=== PATIENT | male | born 1965 | race American Indian/Alaskan Native ===

== ENCOUNTER 2017-11-17 04:58 | Inpatient (IN) | payer SELFPAY ==
[2017-11-17 06:09] LABS: Basophils % (Auto) 0.4 % (0.0-1.8); Eosinophils % (Auto) 0.5 % (0.0-4.3); Hematocrit 40.4 % (35.5-45.6); Hemoglobin 13.1 gm/dl (11.8-15.2); Lymphocytes # (Auto) 0.7 K/mm3 (1.2-5.4); Lymphocytes % (Auto) 8.1 % (13.4-35.0); Mean Corpuscular HGB Conc 33 % (32-34); Mean Corpuscular Volume 77 fl (84-94); Monocytes # (Auto) 0.4 K/mm3 (0.0-0.8); Monocytes % (Auto) 4.8 % (0.0-7.3); Platelet Count 130 K/mm3 (140-440); Red Blood Count 5.25 M/mm3 (3.65-5.03); Red Cell Distribution Width 15.9 % (13.2-15.2)
[2017-11-17 06:11] LABS: Mean Corpuscular Hemoglobin 25 pg (28-32)
[2017-11-17 06:23] LABS: BUN/Creatinine Ratio 14; Blood Urea Nitrogen 27 mg/dL (9-20); Calcium 8.5 mg/dL (8.4-10.2); Hemolysis Index 19
[2017-11-17] MEDS ORDERED: APRESOLINE IV ONE (07:04)
[2017-11-17] MEDS ORDERED: CATAPRES PO ONE (08:37)
--- NOTE | 2017-11-17 08:42 | Emergency Department Report ---
ED Chest Pain HPI - General Chief Complaint: Chest Pain Stated Complaint: CHEST PAIN Time Seen by Provider: 11/17/17 06:26 Source: patient, EMS Mode of arrival: Stretcher Limitations: No Limitations - History of Present Illness Initial Comments: Last night at 10 PM, patient developed substernal chest pain that was nonradiating, intermittent, and pleuritic. Associated with shortness of breath that worsened when he laid flat. Patient is concerned that it was his CHF. Feels different from his heart attack in June 2017. Patient has been noncompliant with his blood pressure medicines. Severity scale (0 -10): 10 - Related Data Home Medications Medication Instructions Recorded Confirmed Last Taken Ascorbic Acid [Vitamin C] 250 mg PO DAILY 11/17/17 11/17/17 Unknown AtorvaSTATin [Lipitor] 20 mg PO QHS 11/17/17 11/17/17 Unknown Carvedilol [Coreg] 25 mg PO BID 11/17/17 11/17/17 Unknown Hydralazine HCl 50 mg PO QID 11/17/17 11/17/17 Unknown Nitroglycerin 0.4 mg SL PRN PRN 11/17/17 11/17/17 Unknown amLODIPine [Norvasc] 10 mg PO DAILY 11/17/17 11/17/17 Unknown cloNIDine [Catapres] 0.1 mg PO TID 11/17/17 11/17/17 Unknown Allergies Allergy/AdvReac Type Severity Reaction Status Date / Time No Known Allergies Allergy Verified 11/17/17 05:09 Heart Score - HEART Score History: Slightly suspicious EKG: Normal Age: 45-65 Risk factors: > 3 risk factors or hx of atherosclerotic disease Troponin: < normal limit HEART Score: 3 ED Review of Systems ROS: Stated complaint: CHEST PAIN Other details as noted in HPI Comment: All other systems reviewed and negative Cardiovascular: chest pain, dyspnea on exertion, orthopnea, paroxysmal nocturnal dyspnea ED Past Medical Hx - Past Medical History Previous Medical History?: Yes Hx Hypertension: Yes Hx Congestive Heart Failure: Yes Hx Diabetes: Yes - Surgical History Past Surgical History?: Yes Additional Surgical History: Broke femur in 1982 - Social History Smoking Status: Current Every Day Smoker Substance Use Type: None - Medications Home Medications: Home Medications Medication Instructions Recorded Confirmed Last Taken Type Ascorbic Acid [Vitamin C] 250 mg PO DAILY 11/17/17 11/17/17 Unknown History AtorvaSTATin [Lipitor] 20 mg PO QHS 11/17/17 11/17/17 Unknown History Carvedilol [Coreg] 25 mg PO BID 11/17/17 11/17/17 Unknown History Hydralazine HCl 50 mg PO QID 11/17/17 11/17/17 Unknown History Nitroglycerin 0.4 mg SL PRN PRN 11/17/17 11/17/17 Unknown History amLODIPine [Norvasc] 10 mg PO DAILY 11/17/17 11/17/17 Unknown History cloNIDine [Catapres] 0.1 mg PO TID 11/17/17 11/17/17 Unknown History ED Physical Exam - General Limitations: No Limitations General appearance: alert, in no apparent distress - Head Head exam: Present: atraumatic, normocephalic - Eye Eye exam: Present: normal appearance - ENT ENT exam: Present: mucous membranes moist - Neck Neck exam: Present: normal inspection - Respiratory Respiratory exam: Present: normal lung sounds bilaterally. Absent: respiratory distress - Cardiovascular Cardiovascular Exam: Present: regular rate, normal rhythm. Absent: systolic murmur, diastolic murmur, rubs, gallop - GI/Abdominal GI/Abdominal exam: Present: soft, normal bowel sounds - Rectal Rectal exam: Present: deferred - Extremities Exam Extremities exam: Present: normal inspection - Back Exam Back exam: Present: normal inspection - Neurological Exam Neurological exam: Present: alert, oriented X3 - Psychiatric Psychiatric exam: Present: normal affect, normal mood - Skin Skin exam: Present: warm, dry, intact, normal color. Absent: rash ED Course Vital Signs 11/17/17 11/17/17 11/17/17 05:09 05:10 05:15 Temperature 97.6 F Pulse Rate 90 92 H 85 Respiratory 23 29 H Rate Blood Pressure 204/132 Blood Pressure 204/132 [Left] O2 Sat by Pulse 96 95 Oximetry 11/17/17 11/17/17 11/17/17 05:30 05:44 06:00 Temperature Pulse Rate 86 88 Respiratory 20 22 26 H Rate Blood Pressure 200/136 200/134 Blood Pressure [Left] O2 Sat by Pulse 95 97 96 Oximetry 11/17/17 11/17/17 06:30 07:00 Temperature Pulse Rate 78 88 Respiratory 24 22 Rate Blood Pressure 192/128 186/123 Blood Pressure [Left] O2 Sat by Pulse 93 96 Oximetry ED Medical Decision Making - Lab Data Result diagrams: 11/17/17 05:58 11/17/17 05:58 - EKG Data -: EKG Interpreted by Me EKG shows normal: sinus rhythm, axis, intervals, QRS complexes, ST-T waves Rate: normal - Radiology Data Radiology results: image reviewed - Medical Decision Making 51-year-old male with past medical history of CAD, NM, hypertension, dyslipidemia, CHF that presents with chest pain and shortness of breath. Patient well-appearing her position. Vital signs skin for hypertension. Patient has not taken his clonidine in over 4 days. EKG is nonischemic. Lab work significant for creatinine 1.9. No prior for comparison. Troponin 1 is negative. Chest x-ray shows concerns for bilateral interstitial edema. Patient is endorsing symptoms of paroxysmal nocturnal dyspnea. It does not appear that he is on any diuretics. Patient was given hydralazine/clonidine for his blood pressure. His BNP is 4000. Given history of PND symptoms with his chest x-ray findings, I gave him 20 mg of IV Lasix. The patient will be admitted for further management. Low suspicion for PE. - Differential Diagnosis CHF, ACS, pneumothorax, pneumonia, hypertensive urgency Critical Care Time: Yes Critical care time in (mins) excluding proc time.: 31 Critical care attestation.: If time is entered above; I have spent that time in minutes in the direct care of this critically ill patient, excluding procedure time. ED Disposition Clinical Impression: CHF exacerbation, KRYS (acute kidney injury) Disposition: 09 OP ADMIT IP TO THIS HOSP Is pt being admited?: Yes Condition: Stable Referrals: PRIMARY CARE, [Primary Care Provider] - 3-5 Days
[2017-11-17] MEDS ORDERED: LASIX IV ONE (08:43)
--- NOTE | 2017-11-17 09:48 | XRay Report ---
ROUTINE CHEST, TWO VIEWS: HISTORY: chest pain. No comparison. Mild central pulmonary venous congestion is suspected. The lungs are clear otherwise. No pleural effusion or pneumothorax. There appear to be emphysematous changes in right apical region. Heart size is within normal limits. The bony structures are grossly intact. IMPRESSION: Pulmonary venous congestion. Emphysematous changes.
[2017-11-17] MEDS ORDERED: PERCOCET 5/325 PO PRN (09:49)
[2017-11-17] MEDS ORDERED: MORPHINE IV PRN (09:49)
[2017-11-17] MEDS ORDERED: SODIUM CHLORIDE FLUSH SYRINGE 10 ML IV PRN (09:49)
[2017-11-17] MEDS ORDERED: TYLENOL PO PRN (09:49)
[2017-11-17] MEDS ORDERED: ZOFRAN IV PRN (09:49)
--- NOTE | 2017-11-17 09:49 | History and Physical Report ---
History of Present Illness Date of examination: 11/17/17 Date of admission: 11/17/17 Chief complaint: Cc L side chest pain since last night 10 pm History of present illness: History of Present Illness: Last night at 10 PM, patient developed substernal chest pain that was nonradiating, intermittent, and pleuritic. Associated with shortness of breath that worsened when he laid flat. Patient is concerned that it was his CHF. Feels different from his heart attack in June 2017. Patient has been noncompliant with his blood pressure medicines. Severity scale (0 -10): 10 No exacerbating or relieving factors Past Medical History Previous Medical History?: Yes Hx Hypertension: Yes Hx Congestive Heart Failure: Yes Hx Diabetes: Yes Surgical History Past Surgical History?: Yes Additional Surgical History: Broke femur in 1982 Social History Smoking Status: Current Every Day Smoker Substance Use Type: None Medications Home Medications: Home Medications Medication Instructions Recorded Confirmed Last Taken Type Ascorbic Acid [Vitamin C] 250 mg PO DAILY 11/17/17 11/17/17 Unknown History AtorvaSTATin [Lipitor] 20 mg PO QHS 11/17/17 11/17/17 Unknown History Carvedilol [Coreg] 25 mg PO BID 11/17/17 11/17/17 Unknown History Hydralazine HCl 50 mg PO QID 11/17/17 11/17/17 Unknown History Nitroglycerin 0.4 mg SL PRN PRN 11/17/17 11/17/17 Unknown History amLODIPine [Norvasc] 10 mg PO DAILY 11/17/17 11/17/17 Unknown History cloNIDine [Catapres] 0.1 mg PO TID 11/17/17 11/17/17 Unknown History Review of Systems ROS: Stated complaint: CHEST PAIN Other details as noted in HPI Comment: All other systems reviewed and negative Cardiovascular: chest pain, dyspnea on exertion, orthopnea, paroxysmal nocturnal dyspnea Medications and Allergies Allergies Allergy/AdvReac Type Severity Reaction Status Date / Time No Known Allergies Allergy Verified 11/17/17 05:09 Home Medications Medication Instructions Recorded Confirmed Last Taken Type Ascorbic Acid [Vitamin C] 250 mg PO DAILY 11/17/17 11/17/17 Unknown History AtorvaSTATin [Lipitor] 20 mg PO QHS 11/17/17 11/17/17 Unknown History Carvedilol [Coreg] 25 mg PO BID 11/17/17 11/17/17 Unknown History Hydralazine HCl 50 mg PO QID 11/17/17 11/17/17 Unknown History Nitroglycerin 0.4 mg SL PRN PRN 11/17/17 11/17/17 Unknown History amLODIPine [Norvasc] 10 mg PO DAILY 11/17/17 11/17/17 Unknown History cloNIDine [Catapres] 0.1 mg PO TID 11/17/17 11/17/17 Unknown History Review of Systems All systems: negative Exam - Constitutional Vitals: Temp Pulse Resp BP Pulse Ox 97.6 F 89 30 H 191/127 98 11/17/17 05:09 11/17/17 07:31 11/17/17 07:31 11/17/17 09:00 11/17/17 09:00 General appearance: Present: no acute distress, well-nourished - EENT Eyes: Present: PERRL ENT: hearing intact, clear oral mucosa - Neck Neck: Present: supple, normal ROM - Respiratory Respiratory effort: normal Respiratory: bilateral: CTA - Cardiovascular Heart Sounds: Present: S1 & S2. Absent: rub, click - Extremities Extremities: pulses symmetrical, No edema Peripheral Pulses: within normal limits - Abdominal General gastrointestinal: Present: soft, non-tender, non-distended, normal bowel sounds Male genitourinary: Present: normal - Integumentary Integumentary: Present: clear, warm, dry - Musculoskeletal Musculoskeletal: gait normal, strength equal bilaterally - Psychiatric Psychiatric: appropriate mood/affect, intact judgment & insight - Neurologic Neurologic: CNII-XII intact, moves all extremities Results - Labs CBC & Chem 7: 11/17/17 05:58 11/17/17 05:58 Labs: Laboratory Last Values WBC 9.1 K/mm3 (4.5-11.0) 11/17/17 05:58 RBC 5.25 M/mm3 (3.65-5.03) H 11/17/17 05:58 Hgb 13.1 gm/dl (11.8-15.2) 11/17/17 05:58 Hct 40.4 % (35.5-45.6) 11/17/17 05:58 MCV 77 fl (84-94) L 11/17/17 05:58 MCH 25 pg (28-32) L 11/17/17 05:58 MCHC 33 % (32-34) 11/17/17 05:58 RDW 15.9 % (13.2-15.2) H 11/17/17 05:58 Plt Count 130 K/mm3 (140-440) L 11/17/17 05:58 Lymph % (Auto) 8.1 % (13.4-35.0) L 11/17/17 05:58 [place] % (Auto) 4.8 % (0.0-7.3) 11/17/17 05:58 Eos % (Auto) 0.5 % (0.0-4.3) 11/17/17 05:58 Baso % (Auto) 0.4 % (0.0-1.8) 11/17/17 05:58 Lymph # 0.7 K/mm3 (1.2-5.4) L 11/17/17 05:58 [place] # 0.4 K/mm3 (0.0-0.8) 11/17/17 05:58 Eos # 0.0 K/mm3 (0.0-0.4) 11/17/17 05:58 Baso # 0.0 K/mm3 (0.0-0.1) 11/17/17 05:58 Seg Neutrophils % 86.2 % (40.0-70.0) H 11/17/17 05:58 Seg Neutrophils # 7.9 K/mm3 (1.8-7.7) H 11/17/17 05:58 Sodium 140 mmol/L (137-145) 11/17/17 05:58 Potassium 5.0 mmol/L (3.6-5.0) 11/17/17 05:58 Chloride 103.7 mmol/L (98-107) 11/17/17 05:58 Carbon Dioxide 26 mmol/L (22-30) 11/17/17 05:58 Anion Gap 15 mmol/L 11/17/17 05:58 BUN 27 mg/dL (9-20) H 11/17/17 05:58 Creatinine 1.9 mg/dL (0.8-1.5) H 11/17/17 05:58 Estimated GFR 45 ml/min 11/17/17 05:58 BUN/Creatinine Ratio 14 % 11/17/17 05:58 Glucose 105 mg/dL (75-100) H 11/17/17 05:58 Calcium 8.5 mg/dL (8.4-10.2) 11/17/17 05:58 Troponin T < 0.010 ng/mL (0.00-0.029) 11/17/17 08:15 NT-Pro-B Natriuret Pep 3952 pg/mL (0-900) H 11/17/17 05:58 Assessment and Plan Advance Directives: Yes (Full code) VTE prophylaxis?: Chemical Plan of care discussed with patient/family: Yes - Patient Problems (1) Chest pain Current Visit: Yes Status: Acute Qualifiers: Chest pain type: unspecified Qualified Code(s): R07.9 - Chest pain, unspecified Plan to address problem: Chest pain w/u Lexiscan in AM Serial cardiac enmzymes (2) HTN (hypertension) Current Visit: Yes Status: Chronic Qualifiers: Hypertension type: essential hypertension Qualified Code(s): I10 - Essential (primary) hypertension Plan to address problem: Cont antihypertensives (3) HLD (hyperlipidemia) Current Visit: Yes Status: Chronic Qualifiers: Hyperlipidemia type: mixed hyperlipidemia Qualified Code(s): E78.2 - Mixed hyperlipidemia Plan to address problem: Cont statins (4) CHF (congestive heart failure) Current Visit: Yes Status: Chronic Qualifiers: Heart failure chronicity: chronic Plan to address problem: Not on any diuretics Check ECHO (5) KRYS (acute kidney injury) Current Visit: Yes Status: Acute Plan to address problem: Cr 1.9 Will give fluid challenge (6) DVT prophylaxis Current Visit: Yes Status: Acute Plan to address problem: On Heparin
[2017-11-17] MEDS ORDERED: NITROSTAT SL PRN ×2 (09:52→11:30)
[2017-11-17] MEDS ORDERED: NON-FORMULARY (Hydralazine Hcl [Hydralazine Hcl] 50 MG) PO SCH (10:00)
[2017-11-17] MEDS ORDERED: NACL 0.9% 1000 ML 1,000 ML IV SCH (12:00)
[2017-11-17] MEDS ORDERED: LEXISCAN IV ONE ×2 (12:01→12:10)
[2017-11-17] MEDS: APRESOLINE PO SCH ×3 (15:23→21:53)
[2017-11-17] MEDS: CATAPRES PO SCH ×2 (15:24→21:53)
[2017-11-17] MEDS: HEPARIN SUB-Q SCH ×2 (17:12→21:52)
[2017-11-17] MEDS: COREG PO SCH ×2 (17:12→21:56)
[2017-11-17] MEDS: VITAMIN C PO SCH (17:21)
[2017-11-17] MEDS: NORVASC PO SCH (17:21)
[2017-11-17] MEDS: NACL 0.9% 1000 ML 1,000 ML IV SCH (20:08)
[2017-11-17] MEDS: SODIUM CHLORIDE FLUSH SYRINGE 10 ML IV SCH (21:54)
[2017-11-18] MEDS: CATAPRES PO SCH ×3 (08:30→21:59)
[2017-11-18] MEDS: NACL 0.9% 1000 ML 1,000 ML IV SCH (08:30)
[2017-11-18 08:31] LABS: Basophils % (Auto) 0.4 % (0.0-1.8); Eosinophils # (Auto) 0.1 K/mm3 (0.0-0.4); Eosinophils % (Auto) 1.2 % (0.0-4.3); Lymphocytes # (Auto) 1.3 K/mm3 (1.2-5.4); Lymphocytes % (Auto) 18.1 % (13.4-35.0); Mean Corpuscular HGB Conc 31 % (32-34); Mean Corpuscular Volume 79 fl (84-94); Monocytes # (Auto) 0.4 K/mm3 (0.0-0.8); Monocytes % (Auto) 5.7 % (0.0-7.3); Platelet Count 135 K/mm3 (140-440); Red Blood Count 5.43 M/mm3 (3.65-5.03); Red Cell Distribution Width 15.9 % (13.2-15.2)
[2017-11-18 08:42] LABS: Hematocrit 42.6 % (35.5-45.6); Hemoglobin 13.2 gm/dl (11.8-15.2); Mean Corpuscular Hemoglobin 24 pg (28-32)
[2017-11-18 08:49] LABS: Albumin 3.5 g/dL (3.9-5); Calcium 8.8 mg/dL (8.4-10.2)
--- NOTE | 2017-11-18 09:20 | Progress Note ---
Assessment and Plan Assessment and plan: Patient is 51 yo man with a history of tobacco dependency hypertension, CHF, dlp and niddm who pw sob and chest pains. Bp was 191/127 heart 89, rr 30. Patient admitted to noncompliance with antihypertensivess. 2v CXR showed pulmonary venous congestion and emphysematous changes. -Acute on chronic heart failure, no prior EMR here, will check ECHO, was given iv lasix by ER physician but was given IVF challenge by admitting Hospitalist for Cr 1.9 (no prior levels to compare) -Chest pains, ischemic work up was ordered on admission -Elevated Cr, ?ckd 3 vs ARF: get renal u/s to differentiate. -Hypertension urgency due to noncompliance with clonidine: restart antihypertensives -Tobacco dependency with radiographic COPD: educated and peer financial counselor on smoking cessation. -Mild Thrombocytopenia, ?chronic: will follow closely -DVT prophylaxis: scd only, d/c sq heparin due to undifferentiated thrombocytopenia full code stress test ordered, echo pending renal ultrasound History Interval history: Patient was seen and examined. Follow-up on current diagnosis sob which has resolved. Overnight uneventful. Patient denies any chest pain, shortness breath , nausea/vomiting or severe headaches. Imaging, nursing note, chart, labs and old chart reviewed. Discussed with patient. Hospitalist Physical - Physical exam Narrative exam: GEN: WDWN, NAD, Awake, Alert, Orientated HEENT: NCAT, EOMI, PERRL, OP Clear NECK: supple, no adenopathy, no thyromegaly, no JVD CVS/HEART: RRR, normal S1S2, pulses present bilaterally CHEST/LUNGS: CTA B, Symmetrical chest expansion, good air entry bilaterally GI/Abdomen: soft, NTND, good bowel sounds, no guarding or rebound /Bladder: no suprapubic tenderness, no CVA or paraspinal tenderness EXT/Skin: no c/c/e, no obvious rash MSK: FROM x 4 Neuro: CN 2-12 grossly intact, no new focal deficits Psych: calm - Constitutional Vitals: Temp Pulse Resp BP Pulse Ox 97.9 F 87 20 154/107 98 11/18/17 08:00 11/18/17 08:30 11/18/17 08:00 11/18/17 08:30 11/18/17 08:00 General appearance: Present: no acute distress, well-nourished Results - Labs CBC & Chem 7: 11/18/17 07:05 11/18/17 07:05 Labs: Laboratory Last Values WBC 7.3 K/mm3 (4.5-11.0) 11/18/17 07:05 RBC 5.43 M/mm3 (3.65-5.03) H 11/18/17 07:05 Hgb 13.2 gm/dl (11.8-15.2) 11/18/17 07:05 Hct 42.6 % (35.5-45.6) 11/18/17 07:05 MCV 79 fl (84-94) L 11/18/17 07:05 MCH 24 pg (28-32) L 11/18/17 07:05 MCHC 31 % (32-34) L 11/18/17 07:05 RDW 15.9 % (13.2-15.2) H 11/18/17 07:05 Plt Count 135 K/mm3 (140-440) L 11/18/17 07:05 Lymph % (Auto) 18.1 % (13.4-35.0) 11/18/17 07:05 [place] % (Auto) 5.7 % (0.0-7.3) 11/18/17 07:05 Eos % (Auto) 1.2 % (0.0-4.3) 11/18/17 07:05 Baso % (Auto) 0.4 % (0.0-1.8) 11/18/17 07:05 Lymph # 1.3 K/mm3 (1.2-5.4) 11/18/17 07:05 [place] # 0.4 K/mm3 (0.0-0.8) 11/18/17 07:05 Eos # 0.1 K/mm3 (0.0-0.4) 11/18/17 07:05 Baso # 0.0 K/mm3 (0.0-0.1) 11/18/17 07:05 Seg Neutrophils % 74.6 % (40.0-70.0) H 11/18/17 07:05 Seg Neutrophils # 5.5 K/mm3 (1.8-7.7) 11/18/17 07:05 Sodium 141 mmol/L (137-145) 11/18/17 07:05 Potassium 4.8 mmol/L (3.6-5.0) 11/18/17 07:05 Chloride 101.4 mmol/L (98-107) 11/18/17 07:05 Carbon Dioxide 26 mmol/L (22-30) 11/18/17 07:05 Anion Gap 18 mmol/L 11/18/17 07:05 BUN 31 mg/dL (9-20) H 11/18/17 07:05 Creatinine 2.1 mg/dL (0.8-1.5) H 11/18/17 07:05 Estimated GFR 40 ml/min 11/18/17 07:05 BUN/Creatinine Ratio 15 % 11/18/17 07:05 Glucose 90 mg/dL (75-100) 11/18/17 07:05 Calcium 8.8 mg/dL (8.4-10.2) 11/18/17 07:05 Total Bilirubin 0.40 mg/dL (0.1-1.2) 11/18/17 07:05 AST 9 units/L (5-40) 11/18/17 07:05 ALT 93 units/L (7-56) H 11/18/17 07:05 Alkaline Phosphatase 79 units/L (35-129) 11/18/17 07:05 Troponin T < 0.010 ng/mL (0.00-0.029) 11/17/17 20:32 NT-Pro-B Natriuret Pep 3952 pg/mL (0-900) H 11/17/17 05:58 Total Protein 5.8 g/dL (6.3-8.2) L 11/18/17 07:05 Albumin 3.5 g/dL (3.9-5) L 11/18/17 07:05 Albumin/Globulin Ratio 1.5 % 11/18/17 07:05
[2017-11-18] MEDS: VITAMIN C PO SCH (14:25)
[2017-11-18] MEDS: NORVASC PO SCH (14:25)
[2017-11-18] MEDS: APRESOLINE PO SCH ×4 (14:26→21:59)
[2017-11-18] MEDS: SODIUM CHLORIDE FLUSH SYRINGE 10 ML IV SCH ×2 (14:27→21:59)
[2017-11-18] MEDS: COREG PO SCH ×2 (14:27→22:00)
[2017-11-19 06:10] LABS: Hematocrit 38.7 % (35.5-45.6); Hemoglobin 12.7 gm/dl (11.8-15.2); Mean Corpuscular HGB Conc 33 % (32-34); Mean Corpuscular Volume 76 fl (84-94); Platelet Count 130 K/mm3 (140-440); Red Blood Count 5.09 M/mm3 (3.65-5.03); Red Cell Distribution Width 15.6 % (13.2-15.2)
[2017-11-19 06:16] LABS: Mean Corpuscular Hemoglobin 25 pg (28-32)
[2017-11-19 06:34] LABS: Calcium 8.6 mg/dL (8.4-10.2)
--- NOTE | 2017-11-19 06:59 | Ultrasound Report ---
FINAL REPORT EXAM: US RENAL BILAT HISTORY: ARF TECHNIQUE: Routine sonographic evaluation was obtained of the kidneys. FINDINGS: The right kidney is normal size contour and echotexture measuring 10.4 cm by 5.1 cm x 5.5 cm. The cortical thickness is 2.3 cm. There is no evidence of stones or hydronephrosis. The left kidney is atrophic measuring 6.9 cm x 4.4 cm x 4.6 cm. The cortical thickness is 1.5 cm. There is no evidence of hydronephrosis. The bladder was not examined. IMPRESSION: Atrophic left kidney. No evidence of renal stones or hydronephrosis.
[2017-11-19 09:23] VITALS: BP 138/100
--- NOTE | 2017-11-19 10:06 | Consultation ---
History of Present Illness Consult date: 11/19/17 Consult reason: other (abnormal echocardiogram) History of present illness: This is a 51yr old male with a history of hypertension, diabetes, chronic kidney disease and known noncompliance with medications and outpatient follow up. He presents to this hospital with complaints of chest pain, admitted for rule out ACS. Cycled cardiac enzymes were normal. 12 lead ECG is a sinus rhythm with left ventricular hypertrophy. He underwent thallium stress test, ordered by the primary team, that was negative for ischemia. An echocardiogram demonstrates a dilated left atrium, right atrium with moderate mitral regurgitation without evidence of mitral stenosis. Normal left ventricular systolic function, ejection fraction 60-65%. Medications and Allergies Allergies Allergy/AdvReac Type Severity Reaction Status Date / Time No Known Allergies Allergy Verified 11/17/17 05:09 Home Medications Medication Instructions Recorded Confirmed Last Taken Type Ascorbic Acid [Vitamin C] 250 mg PO DAILY 11/17/17 11/17/17 Unknown History AtorvaSTATin [Lipitor] 20 mg PO QHS 11/17/17 11/17/17 Unknown History Carvedilol [Coreg] 25 mg PO BID 11/17/17 11/17/17 Unknown History Hydralazine HCl 50 mg PO QID 11/17/17 11/17/17 Unknown History Nitroglycerin 0.4 mg SL PRN PRN 11/17/17 11/17/17 Unknown History amLODIPine [Norvasc] 10 mg PO DAILY 11/17/17 11/17/17 Unknown History cloNIDine [Catapres] 0.1 mg PO TID 11/17/17 11/17/17 Unknown History Active Meds: Active Medications Acetaminophen (Tylenol) 650 mg PO Q4H PRN PRN Reason: Pain MILD(1-3)/Fever >100.5/LUA Amlodipine Besylate (Norvasc) 10 mg PO DAILY [facility] Last Admin: 11/18/17 14:25 Dose: 10 mg Ascorbic Acid (Vitamin C) 250 mg PO DAILY [facility] Last Admin: 11/18/17 14:25 Dose: 250 mg Atorvastatin Calcium (Lipitor) 20 mg PO QHS [facility] Last Admin: 11/18/17 21:59 Dose: 20 mg Carvedilol (Coreg) 25 mg PO BID [facility] Last Admin: 11/18/17 22:00 Dose: 25 mg Clonidine HCl (Catapres) 0.1 mg PO TID [facility] Last Admin: 11/18/17 21:59 Dose: 0.1 mg Hydralazine HCl (Apresoline) 50 mg PO QID [facility] Last Admin: 11/18/17 21:59 Dose: 50 mg Morphine Sulfate (Morphine) 2 mg IV Q4H PRN PRN Reason: Pain, Moderate (4-6) Nitroglycerin (Nitrostat) 0.4 mg SL .Q5MIN PRN PRN Reason: Chest Pain Ondansetron HCl (Zofran) 4 mg IV Q8H PRN PRN Reason: Nausea And Vomiting Oxycodone/Acetaminophen (Percocet 5/325) 1 tab PO Q6H PRN PRN Reason: Pain, Moderate (4-6) Sodium Chloride (Sodium Chloride Flush Syringe 10 Ml) 10 ml IV BID [facility] Last Admin: 11/18/17 21:59 Dose: 10 ml Physical Examination Vital Signs Temp Pulse Resp BP Pulse Ox 97.6 F 90 23 204/132 96 11/17/17 05:09 11/17/17 05:09 11/17/17 05:09 11/17/17 05:09 11/17/17 05:09 General appearance: no acute distress HEENT: Positive: PERRL Neck: Positive: trachea midline Cardiac: Positive: Reg Rate and Rhythm Lungs: Positive: Decreased Breath Sounds Neuro: Positive: Grossly Intact Extremities: Absent: edema Results 11/19/17 05:09 11/19/17 05:09 CBC 11/19/17 Range/Units 05:09 WBC 5.8 (4.5-11.0) K/mm3 RBC 5.09 H (3.65-5.03) M/mm3 Hgb 12.7 (11.8-15.2) gm/dl Hct 38.7 (35.5-45.6) % Plt Count 130 L (140-440) K/mm3 Comprehensive Metabolic Panel 11/19/17 Range/Units 05:09 Sodium 141 (137-145) mmol/L Potassium 4.4 (3.6-5.0) mmol/L Chloride 103.6 (98-107) mmol/L Carbon Dioxide 24 (22-30) mmol/L BUN 35 H (9-20) mg/dL Creatinine 2.0 H (0.8-1.5) mg/dL Glucose 97 (75-100) mg/dL Calcium 8.6 (8.4-10.2) mg/dL Assessment and Plan Chest pain, atypical normal thallium stress test Hypertension Chronic kidney disease Thrombocytopenia Noncompliance with medical therapy An echocardiogram demonstrates a dilated left atrium, right atrium with moderate mitral regurgitation without evidence of mitral stenosis. Normal left ventricular systolic function, ejection fraction 60-65%. No further cardiac workup indicated. Patient advised compliance with his medications and outpatient follow ups.
[2017-11-19] MEDS: VITAMIN C PO SCH (10:38)
[2017-11-19] MEDS: CATAPRES PO SCH ×2 (10:38→14:22)
[2017-11-19] MEDS: NORVASC PO SCH (10:38)
[2017-11-19] MEDS: COREG PO SCH (10:38)
[2017-11-19] MEDS: APRESOLINE PO SCH ×2 (10:38→14:23)
[2017-11-19] MEDS: SODIUM CHLORIDE FLUSH SYRINGE 10 ML IV SCH (10:39)
--- NOTE | 2017-11-19 14:36 | Discharge Summary ---
Providers - Providers Date of Admission: 11/17/17 09:49 Date of discharge: 11/19/17 Attending physician: CAROL MORSE 11/18/17 15:30 Consult to Physician [CONS] Routine Comment: NOTIFIED LUIS ALFREDO ON FLOOR 11/19/17 0892 Consulting Provider: SRINIVAS MEJIA Physician Instructions: Reason For Exam: moderate MR, CHF Primary care physician: WEB APPLICATION TESTER Hospitalization Condition: Stable Hospital course: Patient is 51 yo man with a history of tobacco dependency hypertension, CHF, dlp and niddm who pw sob and chest pains. Bp was 191/127 heart 89, rr 30. Patient admitted to noncompliance with antihypertensivess. 2v CXR showed pulmonary venous congestion and emphysematous changes. -Acute on chronic diastolic heart failure, no prior EMR here, will check ECHO, was given iv lasix by ER physician but was given IVF challenge by admitting Hospitalist for Cr 1.9 (no prior levels to compare) -Chest pains, ischemic work up was ordered on admission -CKD 3 with atrophic left kidney on renal u/s -Hypertension urgency due to noncompliance with clonidine: restart antihypertensives -Tobacco dependency with radiographic COPD: educated and behavioral school counselors on smoking cessation. -Mild Thrombocytopenia, ?chronic: will follow closely -DVT prophylaxis: scd only, d/c sq heparin due to undifferentiated thrombocytopenia full code He underwent thallium stress test, was negative for ischemia. An echocardiogram demonstrates a dilated left atrium, right atrium with moderate mitral regurgitation without evidence of mitral stenosis. Normal left ventricular systolic function, ejection fraction 60-65%. Disposition: DC-01 TO HOME OR SELFCARE Time spent for discharge: 35 minutes Core Measure Documentation - Palliative Care Palliative Care/ Comfort Measures: Not Applicable - Core Measures Any of the following diagnoses?: heart failure - VTE Discharge Requirements Deep Vein Thrombosis/Pulmonary Embolism Present on Admission: No Has pt received <5 days of overlap therapy or INR<2.0: No Anticoagulant overlap therapy prescribed at discharge: No Contraindication No Overlap Therapy order at DC: Not Indicated - Heart Failure Discharge Requirements RICHELLE/ARB for LVSD if EF <40%: Not Applicable Beta kiana at discharge: Yes Exam - Physical Exam Narrative exam: GEN: WDWN, NAD, Awake, Alert, Orientated HEENT: NCAT, EOMI, PERRL, OP Clear NECK: supple, no adenopathy, no thyromegaly, no JVD CVS/HEART: RRR, normal S1S2, pulses present bilaterally CHEST/LUNGS: CTA B, Symmetrical chest expansion, good air entry bilaterally GI/Abdomen: soft, NTND, good bowel sounds, no guarding or rebound /Bladder: no suprapubic tenderness, no CVA or paraspinal tenderness EXT/Skin: no c/c/e, no obvious rash MSK: FROM x 4 Neuro: CN 2-12 grossly intact, no new focal deficits Psych: calm - Constitutional Vitals: Temp Pulse Resp BP Pulse Ox 98.0 F 69 5 L 138/100 99 11/19/17 08:00 11/19/17 08:28 11/19/17 07:42 11/19/17 07:42 11/19/17 07:42 Plan Activity: other (no strenous activity until cleared by Cardiology) Diet: low salt Additional Instructions: see dr. Olmos for high blood pressure. see dr. Whitman for low platelet count. see Dr. Maier for chronic kidney issues Follow up with: PRIMARY CAREMD [Primary Care Provider] - 3-5 Days SRINIVAS MEJIA MD [Staff Physician] - 7 Days GREGG MAIER MD [Staff Physician] - 7 Days RODRICK WHITMAN MD [Staff Physician] - 7 Days Prescriptions: AtorvaSTATin [Lipitor] 20 mg PO QHS #30 tablet amLODIPine [Norvasc] 10 mg PO DAILY #30 tablet Carvedilol [Coreg] 25 mg PO BID #60 tablet cloNIDine [Catapres] 0.1 mg PO TID #90 tablet hydrALAZINE [Apresoline TAB] 50 mg PO QID #120 tablet
--- NOTE | 2017-11-21 11:46 | Treadmill Report ---
NUCLEAR PERFUSION SCAN REFERRING PHYSICIAN: Dr. Chávez. SUPERVISING PHYSICIAN: Dr. Pickard. PROTOCOL: The patient was brought to the stress lab in a postabsorptive state, given 10 mCi of technetium 99m at rest. The patient underwent rest imaging. The patient underwent Lexiscan stress test. At peak stress, the patient was given 26 mCi of technetium 99m. Shortly thereafter, the patient underwent stress imaging. Raw imaging reveals mild motion artifact. SPECT imaging examined carefully in horizontal long axis, vertical long axis, short axis views. Technically difficult study, but grossly no evidence of a significant fixed or reversible perfusion defects suggestive of prior infarction or ischemia. Gated wall motion reveals a calculated ejection fraction of 40%. However, due to the technically difficult nature of study, this may not accurately reflect LV function. No TID. CONCLUSIONS: 1. Technically difficult study, but grossly no evidence of significant degree of ischemia or prior infarction. 2. Calculated ejection fraction of 40%, but this may not be entirely accurate given technically difficult study. Would correlate with echocardiography if warranted. 3. Stress EKG portion of this test is reported separately. JOB# [id number] SBJasmyn/NINA
== END 2017-11-19 17:58 | disposition home or self-care (01) | DRG 682 ==
LOC: ED 04:58 → 4A 09:49
PROVIDERS: ADMIT Internal Medicine; ATTEND Internal Medicine
DX: N17.9 Acute kidney failure, unspecified (principal); I50.33 Acute on chronic diastolic (congestive) heart failure; I13.0 Hypertensive heart and chronic kidney disease with heart failure and stage 1 through stage 4 chronic kidney disease, or unspecified chronic kidney disease; F17.200 Nicotine dependence, unspecified, uncomplicated; N18.3 Chronic kidney disease, stage 3 (moderate); E11.22 Type 2 diabetes mellitus with diabetic chronic kidney disease; I16.0 Hypertensive urgency; J44.9 Chronic obstructive pulmonary disease, unspecified; D69.6 Thrombocytopenia, unspecified; E78.5 Hyperlipidemia, unspecified; Z91.19 Patient's noncompliance with other medical treatment and regimen; Z79.899 Other long term (current) drug therapy; Z71.6 Tobacco abuse counseling
CPT/HCPCS: 36415; 71046; 76770; 78452; 80048; 80053; 83880; 84484; 85025; 85027; 93005; 93010; 93017; 93306; 96374; 96375; A9270-GY; A9502; J0360; J1644; J1940; J2785; J7030

== ENCOUNTER 2017-11-22 06:09 | Emergency (ER) | payer SELFPAY ==
[2017-11-22] MEDS ORDERED: ASPIRIN PO ONE (06:27)
[2017-11-22 06:29] VITALS: BP 164/107
--- NOTE | 2017-11-22 06:59 | XRay Report ---
FINAL REPORT EXAM: XR CHEST ROUTINE 2V HISTORY: Shortness of breath TECHNIQUE: PA and lateral views of the chest were submitted. FINDINGS: There are bullous changes in the right upper lobe. There are no acute infiltrates or congestion. Heart size is normal. Pleural fluid is not seen. The skeletal structures reveal disc degeneration in the dorsal spine. IMPRESSION: Bullous changes in the right upper lobe. No acute infiltrates or congestion.
[2017-11-22 07:47] LABS: Bilirubin,Urine NEG (Negative); Blood,Urine NEG (Negative); Color,Urine Yellow (Yellow); Urobilinogen,Urine < 2.0 mg/dL (<2.0)
== END 2017-11-22 09:30 | disposition left against medical advice (07) ==
LOC: ED 06:09
DX: R06.02 Shortness of breath (principal); R10.31 Right lower quadrant pain; Z53.21 Procedure and treatment not carried out due to patient leaving prior to being seen by health care provider
CPT/HCPCS: 71046; 81001; 93005; 93010

== ENCOUNTER 2019-05-19 17:06 | Inpatient (IN) | payer OTHER ==
--- NOTE | 2019-05-19 17:31 | Emergency Department Report ---
ED General Adult HPI - General Chief complaint: Dyspnea/Respdistress Stated complaint: SOB/CHEST PAIN Time Seen by Provider: 05/19/19 17:15 Source: patient, EMS (EMS records not available at this time for chart dictation.), RN notes reviewed, old records reviewed Mode of arrival: Stretcher Limitations: Physical Limitation - History of Present Illness Initial comments: The patient is a 53-year-old gentleman. He apparently sees Dr. Pickering of cardiology, and Dr. Rice of nephrology. He was recently admitted to another hospital for "fluid on my lungs.". As per review of old charts, his past medical history includes congestive heart failure, diabetes, hypertension, question renal insufficiency The patient is currently taking Coumadin therapy. He is brought to the hospital by emergency medical services for shortness of breath. He states it started today. His symptoms are constant. He denies physical pain to me. He denies headache, neck pain, chest pain or abdominal pain, hematemesis and bright red blood per rectum. His symptoms were greatly improved with intravenous nitroglycerin drip as well as BiPAP therapy. -: Gradual Consistency: constant Improves with: medication, other Associated Symptoms: cough, shortness of breath, weakness - Related Data Previous Rx's Medication Instructions Recorded Last Taken Type Acetaminophen [Acetaminophen TAB] 325 mg PO Q4H PRN #30 tablet 11/19/17 Unknown Rx Ascorbic Acid [Vitamin C] 250 mg PO DAILY #30 11/19/17 Unknown Rx AtorvaSTATin [Lipitor] 20 mg PO QHS #30 tablet 11/19/17 Unknown Rx Carvedilol [Coreg] 25 mg PO BID #60 tablet 11/19/17 Unknown Rx amLODIPine 10 mg PO DAILY #30 tablet 11/19/17 Unknown Rx cloNIDine [Catapres] 0.1 mg PO TID #90 tablet 11/19/17 Unknown Rx hydrALAZINE [Apresoline TAB] 50 mg PO QID #120 tablet 11/19/17 Unknown Rx Allergies Allergy/AdvReac Type Severity Reaction Status Date / Time No Known Allergies Allergy Verified 05/19/19 17:17 ED Review of Systems ROS: Stated complaint: SOB/CHEST PAIN Other details as noted in HPI Constitutional: malaise, weakness ENT: congestion Respiratory: shortness of breath, SOB at rest, wheezing Cardiovascular: edema Gastrointestinal: denies: nausea, vomiting, diarrhea, melena, hematochezia Musculoskeletal: denies: myalgia Skin: denies: lesions Neurological: weakness Psychiatric: anxiety Hematological/Lymphatic: denies: easy bleeding ED Past Medical Hx - Past Medical History Hx Hypertension: Yes Hx Congestive Heart Failure: Yes Hx Diabetes: Yes - Surgical History Additional Surgical History: Broke femur in 1982 - Social History Smoking Status: Current Every Day Smoker Substance Use Type: None - Medications Home Medications: Home Medications Medication Instructions Recorded Confirmed Last Taken Type Acetaminophen [Acetaminophen TAB] 325 mg PO Q4H PRN #30 tablet 11/19/17 Unknown Rx Ascorbic Acid [Vitamin C] 250 mg PO DAILY #30 18 11/17/17 Unknown Rx AtorvaSTATin [Lipitor] 20 mg PO QHS #30 tablet 11/19/17 Unknown Rx Carvedilol [Coreg] 25 mg PO BID #60 tablet 11/19/17 Unknown Rx amLODIPine 10 mg PO DAILY #30 tablet 11/19/17 Unknown Rx cloNIDine [Catapres] 0.1 mg PO TID #90 tablet 11/19/17 Unknown Rx hydrALAZINE [Apresoline TAB] 50 mg PO QID #120 tablet 11/19/17 Unknown Rx ED Physical Exam - General Limitations: Physical Limitation General appearance: alert, anxious, in distress, obese - Head Head exam: Present: atraumatic, normocephalic - Eye Eye exam: Present: normal appearance - ENT ENT exam: Present: normal exam, normal orophraynx, mucous membranes moist, normal external ear exam - Neck Neck exam: Present: normal inspection, full ROM. Absent: tenderness, me ningismus - Respiratory Respiratory exam: Present: normal lung sounds bilaterally, respiratory distress, rales, accessory muscle use - Cardiovascular Cardiovascular Exam: Present: normal rhythm, tachycardia, normal heart sounds. Absent: systolic murmur, diastolic murmur, rubs, gallop - GI/Abdominal GI/Abdominal exam: Present: soft. Absent: distended, tenderness, guarding, rebound, rigid, pulsatile mass - Rectal Rectal exam: Present: deferred - Extremities Exam Extremities exam: Present: normal inspection, full ROM, pedal edema, other (2+ pulses noted in the bilateral upper and lower extremities. There is no palpable cord. negative Homans sign. Muscular compartments are soft. The pelvis is stable.). Absent: calf tenderness - Back Exam Back exam: Present: normal inspection, full ROM. Absent: tenderness, CVA tenderness (R), CVA tenderness (L), paraspinal tenderness, vertebral tenderness - Neurological Exam Neurological exam: Present: alert, other (there is no facial droop. The tongue is midline. Extraocular movements are intact bilaterally. There is 5 out of 5 strength in bilateral upper and lower extremities. Sensation is intact to light touch bilateral upper and lower extremities. There is no past-pointing. There is no pronator drift. There is normal [id number]. There is a normal gait.) - Psychiatric Psychiatric exam: Present: anxious - Skin Skin exam: Present: warm, dry, intact, normal color. Absent: rash ED Course Vital Signs 05/19/19 05/19/19 05/19/19 17:17 17:18 17:25 Temperature 96.4 F L Pulse Rate 120 H 100 H 97 H Pulse Rate [ Anterior Throughout] Respiratory 32 H 33 H 30 H Rate Respiratory Rate [Anterior Throughout] Blood Pressure 201/125 201/35 Blood Pressure 201/135 [Left] O2 Sat by Pulse 99 100 100 Oximetry 05/19/19 05/19/19 05/19/19 17:30 17:37 18:00 Temperature Pulse Rate 94 H 93 H 91 H Pulse Rate [ Anterior Throughout] Respiratory 27 H 30 H 30 H Rate Respiratory Rate [Anterior Throughout] Blood Pressure 178/119 182/127 Blood Pressure 178/113 [Left] O2 Sat by Pulse 100 100 100 Oximetry 05/19/19 05/19/19 05/19/19 18:30 19:00 19:30 Temperature Pulse Rate 89 88 87 Pulse Rate [ Anterior Throughout] Respiratory 28 H 29 H 29 H Rate Respiratory Rate [Anterior Throughout] Blood Pressure 186/128 182/95 163/105 Blood Pressure [Left] O2 Sat by Pulse 100 99 Oximetry 05/19/19 05/19/19 05/19/19 19:37 20:00 20:30 Temperature Pulse Rate 90 96 H Pulse Rate [ 93 H Anterior Throughout] Respiratory 27 H 32 H Rate Respiratory 25 H Rate [Anterior Throughout] Blood Pressure 188/119 197/125 Blood Pressure [Left] O2 Sat by Pulse 99 97 Oximetry 05/19/19 05/19/19 21:00 21:30 Temperature Pulse Rate 90 93 H Pulse Rate [ Anterior Throughout] Respiratory 20 20 Rate Respiratory Rate [Anterior Throughout] Blood Pressure 181/118 185/123 Blood Pressure [Left] O2 Sat by Pulse 98 100 Oximetry - Reevaluation(s) Reevaluation #1: 05/19/19 18:52 Differential diagnosis, including not limited to: Fluid overload, flash pulmonary edema, COPD, pneumonia, hypertensive emergency, cardiorenal syndrome Assessment and plan: 53-year-old gentleman with evidence of flash pulmonary edema, manifests by crackles, rales, hypertension, tripoding, tachypnea, tachycardia. X-ray of the chest corroborates large fluid volume. Patient improving on BiPAP and CPAP. Laboratory studies pending at this time. Pulmonary embolism is unlikely given therapeutic INR, and overall clinical picture. Patient will require admission once initial diagnostics resulted. Reevaluation #2: 05/19/19 19:49 case presented to hospital [facility] who accepts to the ICU ED Medical Decision Making - Lab Data Result diagrams: 05/19/19 18:57 05/19/19 17:41 Vital Signs 05/19/19 05/19/19 05/19/19 17:17 17:18 17:25 Temperature 96.4 F L Pulse Rate 120 H 100 H 97 H Respiratory 32 H 33 H 30 H Rate Blood Pressure 201/125 201/35 Blood Pressure 201/135 [Left] O2 Sat by Pulse 99 100 100 Oximetry 05/19/19 17:37 Temperature Pulse Rate 93 H Respiratory 30 H Rate Blood Pressure Blood Pressure 178/113 [Left] O2 Sat by Pulse 100 Oximetry Lab Results 05/19/19 Range/Units 17:41 PT 29.7 H (12.2-14.9) Sec. INR 2.90 H (0.87-1.13) APTT 38.2 H (24.2-36.6) Sec. Vital Signs 05/19/19 05/19/19 05/19/19 17:17 17:18 17:25 Temperature 96.4 F L Pulse Rate 120 H 100 H 97 H Respiratory 32 H 33 H 30 H Rate Blood Pressure 201/125 201/35 Blood Pressure 201/135 [Left] O2 Sat by Pulse 99 100 100 Oximetry 05/19/19 17:37 Temperature Pulse Rate 93 H Respiratory 30 H Rate Blood Pressure Blood Pressure 178/113 [Left] O2 Sat by Pulse 100 Oximetry Lab Results 05/19/19 Range/Units 17:41 PT 29.7 H (12.2-14.9) Sec. INR 2.90 H (0.87-1.13) APTT 38.2 H (24.2-36.6) Sec. Lab Results 05/19/19 05/19/19 05/19/19 Range/Units 17:41 17:41 17:41 WBC (4.5-11.0) K/mm3 RBC (3.65-5.03) M/mm3 Hgb (11.8-15.2) gm/dl Hct (35.5-45.6) % MCV (84-94) fl MCH (28-32) pg MCHC (32-34) % RDW (13.2-15.2) % Plt Count (140-440) K/mm3 PT 29.7 H (12.2-14.9) Sec. INR 2.90 H (0.87-1.13) APTT 38.2 H (24.2-36.6) Sec. POC ABG pH (7.35-7.45) POC ABG pCO2 (35-45) POC ABG pO2 (80-105) POC ABG HCO3 (22-26 mml/L) POC ABG Total CO2 (23-27mmol/L) POC ABG O2 Sat POC ABG Base Excess ((-2) - (+3)mmol/L) FiO2 % Sodium 140 (137-145) mmol/L Potassium 5.3 H (3.6-5.0) mmol/L Chloride 110.2 H (98-107) mmol/L Carbon Dioxide 18 L (22-30) mmol/L Anion Gap 17 mmol/L BUN 74 H (9-20) mg/dL Creatinine 3.3 H (0.8-1.5) mg/dL Estimated GFR 24 ml/min BUN/Creatinine Ratio 22 % Glucose 122 H (75-100) mg/dL Calcium 8.7 (8.4-10.2) mg/dL Magnesium 2.00 (1.7-2.3) mg/dL Total Bilirubin 0.40 (0.1-1.2) mg/dL AST 45 H (5-40) units/L ALT 226 H (7-56) units/L Alkaline Phosphatase 264 H (35-129) units/L Total Creatine Kinase 63 (55-170) units/L Troponin T 0.023 (0.00-0.029) ng/mL Total Protein 6.0 L (6.3-8.2) g/dL Albumin 4.0 (3.9-5) g/dL Albumin/Globulin Ratio 2.0 % 05/19/19 05/19/19 05/19/19 Range/Units 18:41 18:57 19:12 WBC 14.5 H (4.5-11.0) K/mm3 RBC 4.90 (3.65-5.03) M/mm3 Hgb 11.4 L (11.8-15.2) gm/dl Hct 37.0 (35.5-45.6) % MCV 75 L (84-94) fl MCH 23 L (28-32) pg MCHC 31 L (32-34) % RDW 17.5 H (13.2-15.2) % Plt Count 210 (140-440) K/mm3 PT (12.2-14.9) Sec. INR (0.87-1.13) APTT (24.2-36.6) Sec. POC ABG pH 7.270 L 7.318 L (7.35-7.45) POC ABG pCO2 43.3 36.8 (35-45) POC ABG pO2 199 H (80-105) POC ABG HCO3 19.9 18.9 (22-26 mml/L) POC ABG Total CO2 21 20 (23-27mmol/L) POC ABG O2 Sat 53 100 POC ABG Base Excess -7 -7 ((-2) - (+3)mmol/L) FiO2 60 60 % Sodium (137-145) mmol/L Potassium (3.6-5.0) mmol/L Chloride (98-107) mmol/L Carbon Dioxide (22-30) mmol/L Anion Gap mmol/L BUN (9-20) mg/dL Creatinine (0.8-1.5) mg/dL Estimated GFR ml/min BUN/Creatinine Ratio % Glucose (75-100) mg/dL Calcium (8.4-10.2) mg/dL Magnesium (1.7-2.3) mg/dL Total Bilirubin (0.1-1.2) mg/dL AST (5-40) units/L ALT (7-56) units/L Alkaline Phosphatase (35-129) units/L Total Creatine Kinase (55-170) units/L Troponin T (0.00-0.029) ng/mL Total Protein (6.3-8.2) g/dL Albumin (3.9-5) g/dL Albumin/Globulin Ratio % - EKG Data -: EKG Interpreted by Vt EKG shows normal: sinus rhythm Rate: normal - EKG Data 05/19/19 18:50 The EKG shows a sinus tachycardia, 100 beats per minutes, QTC 443 ms, motion a rtifact, left ventricular hypertrophy, EKG is abnormal, the EKG is not consistent with ST elevation myocardial infarction, nonspecific changes noted when compared to prior EKG from November 2017. - Radiology Data Radiology results: report reviewed, image reviewed Print Report Referring Physician: LONDON FELTON Patient Name: BENJIE APODACA Date of : 1965 Sex: Male Report Date: 2019-05-19 Report Status: Finalized Findings [address] [address] XRay Report Signed Patient: BENJIE APODACA MR#: [id number] : 1965 Acct:[id number] Age/Sex: 53 / M ADM Date: 05/19/19 Loc: ED Attending Dr: Ordering Physician: LONDON FELTON MD Date of Service: 05/19/19 Procedure(s): XR chest 1V ap Accession Number(s): [id number] cc: LONDON FELTON MD Fluoro Time In Minutes: CHEST 1 VIEW 05/19/2019 5:23 PM INDICATION / CLINICAL INFORMATIO N: Dyspnea. COMPARISON: Chest x-ray 11/22/2017 FINDINGS: SUPPORT DEVICES: None. HEART / MEDIASTINUM: Upper limits normal in size for AP technique LUNGS / PLEURA: Moderate bilateral pleural-parenchymal disease has developed since prior study characteristic for CHF. 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 ADDITIONAL FINDINGS: No significant additional findings. IMPRESSION: 1. New onset moderate CHF 2. Advanced destructive emphysema right upper lobe Signer Name: Mike Clay MD Signed: 05/19/2019 5:59 PM Workstation Name: [id number] Transcribed By: TL Dictated By: Mike Clay MD Electronically Authenticated By: Mike Clay MD Signed Date/Time: 05/19/191758 DD/ 57 Critical Care Time: Yes Critical care time in (mins) excluding proc time.: 60 Critical care attestation.: If time is entered above; I have spent that time in minutes in the direct care of this critically ill patient, excluding procedure time. ED Disposition Clinical Impression: Flash pulmonary edema, Cardiorenal syndrome with renal failure Disposition: OP ADMIT IP TO THIS HOSP Is pt being admited?: Yes Condition: Critical
[2019-05-19] MEDS ORDERED: NITROGLYCERIN DRIP 50 MG/250 ML BOTTLE IV SCH (18:00)
--- NOTE | 2019-05-19 18:03 | XRay Report ---
CHEST 1 VIEW 05/19/2019 5:23 PM INDICATION / CLINICAL INFORMATION: Dyspnea. COMPARISON: Chest x-ray 11/22/2017 FINDINGS: SUPPORT DEVICES: None. HEART / MEDIASTINUM: Upper limits normal in size for AP technique LUNGS / PLEURA: Moderate bilateral pleural-parenchymal disease has developed since prior study charac teristic for CHF. 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 ADDITIONAL FINDINGS: No significant additional findings. IMPRESSION: 1. New onset moderate CHF 2. Advanced destructive emphysema right upper lobe Signer Name: Mike Clay MD Signed: 05/19/2019 5:59 PM Workstation Name: [id number]
[2019-05-19 18:36] LABS: INR 2.9 (0.87-1.13); Partial Thromboplastin Time 38.2 Sec. (24.2-36.6)
[2019-05-19 18:50] LABS: Calcium 8.7 mg/dL (8.4-10.2)
[2019-05-19] MEDS ORDERED: methylPREDNISolone Sod Succinate 125 MG/2 ML INJ IV ONE (18:51)
[2019-05-19] MEDS ORDERED: IPRATROPIUM 0.02% NEBU 2.5 ML IH ONE (18:51)
[2019-05-19] MEDS ORDERED: ALBUTEROL 2.5 MG/3 ML NEBU IH ONE (18:51)
[2019-05-19] MEDS ORDERED: FUROSEMIDE 40 MG/4 ML INJ IV ONE (18:54)
[2019-05-19 19:18] LABS: Hemoglobin 11.4 gm/dl (11.8-15.2); Mean Corpuscular HGB Conc 31 % (32-34); Mean Corpuscular Volume 75 fl (84-94); Platelet Count 210 K/mm3 (140-440); Red Cell Distribution Width 17.5 % (13.2-15.2)
[2019-05-19] MEDS ORDERED: MORPHINE 4 MG/1 ML INJ IV ONE (19:37)
[2019-05-19] MEDS ORDERED: ALBUTEROL 2.5 MG/3 ML NEBU IH PRN (20:29)
[2019-05-19] MEDS ORDERED: ACETAMINOPHEN 325 MG TAB PO PRN (20:29)
[2019-05-19] MEDS ORDERED: ONDANSETRON 4 MG/2 ML INJ IV PRN (20:29)
[2019-05-19] MEDS ORDERED: cefTRIAXone/NS 1 GM/50 ML 1 GM/50 ML BAG IV ONE (21:13)
[2019-05-19] MEDS ORDERED: amLODIPine 10 MG TAB ONE (21:15)
[2019-05-19] MEDS ORDERED: hydrALAZINE 20 MG/1 ML INJ ONE (21:15)
[2019-05-19] MEDS: amLODIPine 10 MG TAB PO SCH (21:19)
[2019-05-19] MEDS: hydrALAZINE 20 MG/1 ML INJ IV PRN (21:19)
[2019-05-19] MEDS: cefTRIAXone/NS 1 GM/50 ML 1 GM/50 ML BAG IV SCH (21:19)
[2019-05-19 21:33] LABS: Bilirubin,Urine NEG (Negative); Blood,Urine NEG (Negative); Color,Urine Yellow (Yellow); Urobilinogen,Urine < 2.0 mg/dL (<2.0)
[2019-05-19] MEDS ORDERED: hydrALAZINE 25 MG TAB PO SCH (22:00)
[2019-05-19] MEDS ORDERED: DEXTROSE 50% IN WATER (25GM) 50 ML SYRINGE IV PRN (22:06)
--- NOTE | 2019-05-19 22:10 | History and Physical Report ---
History of Present Illness Date of examination: 05/19/19 Date of admission: 05/19/19 20:29 Chief complaint: Fluid on lungs History of present illness: 53-year-old -Armenian male with history of CKD3, hypertension, CHF, diabetes, tobacco abuse who presents [facility] ED via EMS with complaints of fluid on lungs, and difficulty breathing. Patient states that he was admitted to the hospital for approximately 7-8 days for "breathing issues" and was discharged yesterday on 05/18/19. Pt states that he has been experiencing progressively worsening SOB since being discharge from [facility] yesterday. Per pt reports that his "water pill" was discontinued, which cause him to ave fluid build up. He denies chest pain. At the time of my examination, pt is sitting up in stretcher on BiPaP. He is able to answer short yes no questions. His breathing is labored. Crackles heard on auscultation with prolonged air movement and poor expiratory phase. Past History Past Medical History: diabetes, heart failure, hypertension Past Surgical History: Other ( Broke femur in 1982) Social history: smoking (current every day smoker) Family history: no significant family history Medications and Allergies Allergies Allergy/AdvReac Type Severity Reaction Status Date / Time No Known Allergies Allergy Verified 05/19/19 17:17 Home Medications Medication Instructions Recorded Confirmed Last Taken Type Acetaminophen [Acetaminophen TAB] 325 mg PO Q4H PRN #30 tablet 11/19/17 Unknown Rx Ascorbic Acid [Vitamin C] 250 mg PO DAILY #30 18 11/17/17 Unknown Rx AtorvaSTATin [Lipitor] 20 mg PO QHS #30 tablet 11/19/17 Unknown Rx Carvedilol [Coreg] 25 mg PO BID #60 tablet 11/19/17 Unknown Rx amLODIPine 10 mg PO DAILY #30 tablet 11/19/17 Unknown Rx cloNIDine [Catapres] 0.1 mg PO TID #90 tablet 11/19/17 Unknown Rx hydrALAZINE [Apresoline TAB] 50 mg PO QID #120 tablet 11/19/17 Unknown Rx Active Meds: Active Medications Acetaminophen (Tylenol) 650 mg PO Q4H PRN PRN Reason: Pain MILD(1-3)/Fever >100.5/LUA Albuterol (Proventil) 2.5 mg IH Q3HRT PRN PRN Reason: Shortness Of Breath Albuterol/Ipratropium (Duoneb *Not For Prn Use*) 1 ampul IH Q6HRT [facility] Amlodipine Besylate (Amlodipine) 10 mg PO DAILY [facility] Last Admin: 05/19/19 21:19 Dose: 10 mg Documented by: Atorvastatin Calcium (Lipitor) 20 mg PO QHS [facility] Carvedilol (Coreg) 25 mg PO BID [facility] Docusate Sodium (Colace) 100 mg PO BID [facility] Furosemide (Lasix) 40 mg IV 0600,1800 [facility] Heparin Sodium (Porcine) (Heparin) 5,000 unit SUB-Q Q12HR [facility] Hydralazine HCl (Apresoline) 10 mg IV Q4H PRN PRN Reason: Blood Pressure Last Admin: 05/19/19 21:19 Dose: 10 mg Documented by: Ceftriaxone Sodium (Rocephin/Ns 1 Gm/50 Ml) 1 gm in 50 mls @ 100 mls/hr IV Q24HR [facility]; Protocol Last Admin: 05/19/19 21:19 Dose: 100 mls/hr Documented by: Methylprednisolone Sodium Succinate (Solu-Medrol) 60 mg IV Q8HR [facility] Nicotine (Habitrol) 14 mg TD QDAY [facility] Ondansetron HCl (Zofran) 4 mg IV Q8H PRN PRN Reason: Nausea And Vomiting Sodium Chloride (Sodium Chloride Flush Syringe 10 Ml) 10 ml IV BID [facility] Sodium Chloride (Sodium Chloride Flush Syringe 10 Ml) 10 ml IV PRN PRN PRN Reason: LINE FLUSH Review of Systems All systems: negative Cardiovascular: shortness of breath, dyspnea on exertion, paroxysmal nocturnal d yspnea Respiratory: shortness of breath, dyspnea on exertion Exam - Physical Exam Narrative exam: Physical exam General appearance: Present: Moderate distress, alert and oriented 3, well- developed, adult -Armenian male - EENT Eyes: Present: PERRL, EOM intact ENT: hearing intact, normal dentition - Neck Neck: Present: supple, normal ROM - Respiratory Respiratory effort: Labored, on BiPaP Respiratory: Scattered crackles, poor air movement, prolonged expiratory phase - Cardiovascular Heart rate: 100 (bpm) Rhythm: Sinus rhythm, nonspecific ST abnormalities Heart Sounds: Present: S1 & S2. Absent: rub, click - Extremities Extremities: no ischemia, pulses intact, - Peripheral Assessment Peripheral Pulses: within normal limits - Abdominal General gastrointestinal: soft, non-tender, normal bowel sounds - Integumentary Integumentary: Present: warm, dry - Musculoskeletal Musculoskeletal: Able to move all extremities -Neurological Neurological: CN II-XII intact - Psychiatric Psychiatric: cooperative - Constitutional Vitals: Temp Pulse Resp BP Pulse Ox 96.4 F L 93 H 20 185/123 100 05/19/19 17:17 05/19/19 21:30 05/19/19 21:30 05/19/19 21:30 05/19/19 21:30 Results - Labs CBC & Chem 7: 05/19/19 18:57 05/19/19 17:41 Labs: Laboratory Last Values WBC 14.5 K/mm3 (4.5-11.0) H 05/19/19 18:57 RBC 4.90 M/mm3 (3.65-5.03) 05/19/19 18:57 Hgb 11.4 gm/dl (11.8-15.2) L 05/19/19 18:57 Hct 37.0 % (35.5-45.6) 05/19/19 18:57 MCV 75 fl (84-94) L 05/19/19 18:57 MCH 23 pg (28-32) L 05/19/19 18:57 MCHC 31 % (32-34) L 05/19/19 18:57 RDW 17.5 % (13.2-15.2) H 05/19/19 18:57 Plt Count 210 K/mm3 (140-440) 05/19/19 18:57 PT 29.7 Sec. (12.2-14.9) H 05/19/19 17:41 INR 2.90 (0.87-1.13) H 05/19/19 17:41 APTT 38.2 Sec. (24.2-36.6) H 05/19/19 17:41 POC ABG pH 7.318 (7.35-7.45) L 05/19/19 19:12 POC ABG pCO2 36.8 (35-45) 05/19/19 19:12 POC ABG pO2 199 (80-105) H 05/19/19 19:12 POC ABG HCO3 18.9 (22-26 mml/L) 05/19/19 19:12 POC ABG Total CO2 20 (23-27mmol/L) 05/19/19 19:12 POC ABG O2 Sat 100 05/19/19 19:12 POC ABG Base Excess -7 ((-2) - (+3)mmol/L) 05/19/19 19:12 FiO2 60 % 05/19/19 19:12 Sodium 140 mmol/L (137-145) 05/19/19 17:41 Potassium 5.3 mmol/L (3.6-5.0) H 05/19/19 17:41 Chloride 110.2 mmol/L (98-107) H 05/19/19 17:41 Carbon Dioxide 18 mmol/L (22-30) L 05/19/19 17:41 Anion Gap 17 mmol/L 05/19/19 17:41 BUN 74 mg/dL (9-20) H 05/19/19 17:41 Creatinine 3.3 mg/dL (0.8-1.5) H 05/19/19 17:41 Estimated GFR 24 ml/min 05/19/19 17:41 BUN/Creatinine Ratio 22 % 05/19/19 17:41 Glucose 122 mg/dL (75-100) H 05/19/19 17:41 Calcium 8.7 mg/dL (8.4-10.2) 05/19/19 17:41 Magnesium 2.00 mg/dL (1.7-2.3) 05/19/19 17:41 Total Bilirubin 0.40 mg/dL (0.1-1.2) 05/19/19 17:41 AST 45 units/L (5-40) H 05/19/19 17:41 ALT 226 units/L (7-56) H 05/19/19 17:41 Alkaline Phosphatase 264 units/L (35-129) H 05/19/19 17:41 Total Creatine Kinase 63 units/L (55-170) 05/19/19 17:41 Troponin T 0.023 ng/mL (0.00-0.029) 05/19/19 17:41 Total Protein 6.0 g/dL (6.3-8.2) L 05/19/19 17:41 Albumin 4.0 g/dL (3.9-5) 05/19/19 17:41 Albumin/Globulin Ratio 2.0 % 05/19/19 17:41 Urine Color Yellow (Yellow) 05/19/19 Unknown Urine Turbidity Clear (Clear) 05/19/19 Unknown Urine pH 5.0 (5.0-7.0) 05/19/19 Unknown Ur Specific [place] 1.013 (1.003-1.030) 05/19/19 Unknown Urine Protein 100 mg/dl mg/dL (Negative) 05/19/19 Unknown Urine Glucose (UA) Neg mg/dL (Negative) 05/19/19 Unknown Urine Ketones Neg mg/dL (Negative) 05/19/19 Unknown Urine Blood Neg (Negative) 05/19/19 Unknown Urine Nitrite Neg (Negative) 05/19/19 Unknown Urine Bilirubin Neg (Negative) 05/19/19 Unknown Urine Urobilinogen < 2.0 mg/dL (<2.0) 05/19/19 Unknown Ur Leukocyte Esterase Neg (Negative) 05/19/19 Unknown Urine WBC (Auto) 5.0 /HPF (0.0-6.0) 05/19/19 Unknown Urine RBC (Auto) 4.0 /HPF (0.0-6.0) 05/19/19 Unknown U Epithel Cells (Auto) < 1.0 /HPF (0-13.0) 05/19/19 Unknown Urine Yeast (Budding) Few /HPF 05/19/19 Unknown - Imaging and Cardiology Imaging and Cardiology: CXR FINDINGS: SUPPORT DEVICES: None. HEART / MEDIASTINUM: Upper limits normal in size for AP technique LUNGS / PLEURA: Moderate bilateral pleural-parenchymal disease has developed since prior study characteristic for CHF. 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 ADDITIONAL FINDINGS: No significant additional findings. IMPRESSION: 1. New onset moderate CHF 2. Advanced destructive emphysema right upper lobe Assessment and Plan Assessment and plan: 53-year-old -Armenian male with history of CKD3, hypertension, CHF, diabetes, tobacco abuse who presents [facility] ED via EMS with complaints of fluid on lungs, and difficulty breathing. Hypertensive urgency -BP on admission 201/125 -Hx Hypertension -Continue to monitor BP -Resume home antihypertensive meds to optimize BP -IV antihypertensive when necessary Flash Pulmonary Edema -Hx of CHF -EF 60-65% with dilated left atrium with moderate mitral regurgitation seen on Echo done 11/17/17 -CXR shows moderate CHF -Recently discharged from [facility] on 05/18 -IV Lasix BID -Scheduled DuoNebs, and albuterol prn -IV systemic steroids -Cardiology consulted SIRS -TMAX 96.4 -HR 93 -RR 29 -WBC 14.5K Leukocytosis -WBC on admission 14.5 -Mild hypothermia with temperature 96.4 -Blood Cultures pending -Lactic Acid pending -Empirically on Rocephin -Continue to monitor CBC Anemia -Hemoglobin on admission 11.4 -No s/s of active bleeding -Continue to monitor hemoglobin -Transfuse as needed Acute Respiratory Failure -ABG on admission 7.318/36.8/199/18.9 -No baseline home oxygen requirements -CXR shows Advanced destructive emphysema right upper lobe -Currently on BiPaP -Respiraroty treat and assess -Continue supprtive care -Continue to Monitor KRYS -Cr on admission 3.3 -Hx of CDK3 GFR 24 -Avoid nephrotoxic agents -Renal dose all meds -Nephrology consulted Elevated LFTs -AST 45, ALT 226 -GI Consulted DM -POC BG monitoring -SSI coverage prn -HgbA1C pending Tobacco abuse -Current every day smoker -Counseled for cessation -Nicotine patch when necessary DVT PPX -On Heparin Advance Directives: No VTE prophylaxis?: Chemical Plan of care discussed with patient/family: Yes
[2019-05-19] MEDS: methylPREDNISolone Sod Succinate 40 MG/1 ML INJ IV SCH (22:57)
[2019-05-19] MEDS: carvediloL 25 MG TAB PO SCH (22:59)
[2019-05-19] MEDS: HEPARIN 5,000 UNIT/1 ML VIAL SUB-Q SCH (22:59)
[2019-05-19] MEDS: DOCUSATE SODIUM 100 MG CAP PO SCH (23:01)
[2019-05-20] MEDS: INSULIN REGULAR, HUMAN 100 UNITS/1 ML SUB-Q SCH ×4 (00:14→18:32)
[2019-05-20 05:04] LABS: Mean Corpuscular HGB Conc 32 % (32-34); Mean Corpuscular Volume 75 fl (84-94); Platelet Count 201 K/mm3 (140-440); Red Blood Count 5.09 M/mm3 (3.65-5.03); Red Cell Distribution Width 17.3 % (13.2-15.2)
[2019-05-20] MEDS: IPRATROPIUM/ALBUTEROL SULFATE 3 ML AMPUL.NEB IH SCH ×4 (05:51→21:31)
[2019-05-20] MEDS: methylPREDNISolone Sod Succinate 40 MG/1 ML INJ IV SCH ×3 (06:07→22:05)
[2019-05-20] MEDS: FUROSEMIDE 40 MG/4 ML INJ IV SCH ×2 (06:08→18:19)
[2019-05-20 06:30] LABS: Anisocytosis 1+; Basophils % (Manual) 0 % (0.0-1.8); Eosinophils % (Manual) 0 % (0.0-4.3); Monocytes % (Manual) 0 % (0.0-7.3); Platelet Estimate Consistent w Auto; Total Cells Counted 100
--- NOTE | 2019-05-20 09:22 | Consultation ---
History of Present Illness - Reason for Consult Consult date: 05/20/19 acute renal failure - History of Present Illness Mr. Acuña is a 53yo with systolic heart failure, atrial fibrillation and CKD who presented to the ED with difficutly breathing. He reports that he was recently hospitalized at an OSH and was discharged to home on Friday, May 18. He reports that on Friday, SOB returned - he reports orthopnea and FELISHA. In addition, he reports worsening leg swelling. Symptoms progressively worsened prompting ED visit yesterday afternoon. Patient is a poor historian and states that he has a "weak heart" and "weak kidneys". Per patient, dialysis has been discussed with patient during prior hospitalization, but he reports that he was told that he did not need dialysis at this time. He primarily receives healthcare during hospitalizations and states that he has not been seen by a provider as outpatient in quite some time. OSH records reviewed. Patient was hospitalized for atrial fibrillation w/ RVR, acute systolic heart failure and KRYS on CKD. At time of discharge, SCr had improved to 3.8mg/dL. Patient reports that he has not yet obtained discharge medications from pharmacy. Discharge summary reviewed - he was not discharged to home on oral diuretics. Past History Past Medical History: diabetes, heart failure, hypertension Past Surgical History: Other ( Broke femur in 1982) Social history: smoking (current every day smoker) Family history: no significant family history Medications and Allergies Allergies Allergy/AdvReac Type Severity Reaction Status Date / Time No Known Allergies Allergy Verified 05/19/19 17:17 Home Medications Medication Instructions Recorded Confirmed Last Taken Type Acetaminophen [Acetaminophen TAB] 325 mg PO Q4H PRN #30 tablet 11/19/17 05/20/19 Unknown Rx Ascorbic Acid [Vitamin C] 250 mg PO DAILY #30 11/19/17 05/20/19 Unknown Rx AtorvaSTATin [Lipitor] 20 mg PO QHS #30 tablet 11/19/17 05/20/19 Unknown Rx Carvedilol [Coreg] 25 mg PO BID #60 tablet 11/19/17 05/20/19 Unknown Rx amLODIPine 10 mg PO DAILY #30 tablet 11/19/17 05/20/19 Unknown Rx cloNIDine [Catapres] 0.1 mg PO TID #90 tablet 11/19/17 05/20/19 Unknown Rx hydrALAZINE [Apresoline TAB] 50 mg PO QID #120 tablet 11/19/17 05/20/19 Unknown Rx Active Meds: Active Medications Acetaminophen (Tylenol) 650 mg PO Q4H PRN PRN Reason: Pain MILD(1-3)/Fever >100.5/LUA Albuterol (Proventil) 2.5 mg IH Q3HRT PRN PRN Reason: Shortness Of Breath Albuterol/Ipratropium (Duoneb *Not For Prn Use*) 1 ampul IH Q6HRT [facility] Last Admin: 05/20/19 07:19 Dose: 1 ampul Documented by: Amlodipine Besylate (Amlodipine) 10 mg PO DAILY [facility] Last Admin: 05/19/19 21:19 Dose: 10 mg Documented by: Atorvastatin Calcium (Lipitor) 20 mg PO QHS [facility] Last Admin: 05/19/19 22:58 Dose: 20 mg Documented by: Carvedilol (Coreg) 25 mg PO BID [facility] Last Admin: 05/19/19 22:59 Dose: 25 mg Documented by: Dextrose (D50w (25gm) Syringe) 0 ml IV Q30MIN PRN; Protocol PRN Reason: Hypoglycemia Docusate Sodium (Colace) 100 mg PO BID [facility] Last Admin: 05/19/19 23:01 Dose: 100 mg Documented by: Furosemide (Lasix) 40 mg IV 0600,1800 [facility] Last Admin: 05/20/19 06:08 Dose: 40 mg Documented by: Heparin Sodium (Porcine) (Heparin) 5,000 unit SUB-Q Q12HR [facility] Last Admin: 05/19/19 22:59 Dose: 5,000 unit Documented by: Hydralazine HCl (Apresoline) 10 mg IV Q4H PRN PRN Reason: Blood Pressure Last Admin: 05/20/19 00:00 Dose: 10 mg Documented by: Ceftriaxone Sodium (Rocephin/Ns 1 Gm/50 Ml) 1 gm in 50 mls @ 100 mls/hr IV Q24HR [facility]; Protocol Last Admin: 05/19/19 21:19 Dose: 100 mls/hr Documented by: Insulin Human Regular (Humulin R) 0 units SUB-Q Q6HR [facility]; Protocol Last Admin: 05/20/19 06:07 Dose: Not Given Documented by: Methylprednisolone Sodium Succinate (Solu-Medrol) 60 mg IV Q8HR [facility] Last Admin: 05/20/19 06:07 Dose: 60 mg Documented by: Nicotine (Habitrol) 14 mg TD QDAY [facility] Ondansetron HCl (Zofran) 4 mg IV Q8H PRN PRN Reason: Nausea And Vomiting Sodium Chloride (Sodium Chloride Flush Syringe 10 Ml) 10 ml IV BID [facility] Last Admin: 05/19/19 23:00 Dose: 10 ml Documented by: Sodium Chloride (Sodium Chloride Flush Syringe 10 Ml) 10 ml IV PRN PRN PRN Reason: LINE FLUSH Review of Systems All systems: negative Exam - Vital Signs Vital signs: Vital Signs Temp Pulse Resp BP Pulse Ox 96.4 F L 120 H 32 H 201/125 99 05/19/19 17:17 05/19/19 17:17 05/19/19 17:17 05/19/19 17:17 05/19/19 17:17 - General Appearance General appearance: well-developed, well-nourished EENT: ATNC Respiratory: Other (inspiratory crackles) Heart: regular, S1S2 Gastrointestinal: Present: normal. 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 SCr 3.8mg/dL on May 18 2019 * Acute hypoxic respiratory failure * Acute on chronic systolic heart failure --TTE: LV normal size. Moderate concentric LV hypertrophy. Mild global LV hypokinesis. LVEF is 41%. EF 40 - 45%. LVEF mildly decreased (May 11 2019) * Pulmonary edema * Hypekalemia * Atrial fibrillation * Hypertension * Hx of alcohol abuse * Hx of right upper lung mass * Tobacco abuse Plan: * Renal function is stable - better c/w labs at discharge from [facility] on 05/18 * Agree with IV diuretics * Will give kayexelate 30g x 1 dose * Start po Na Bicarb * Continue antiHTN medications * Rate control and anticoagulation per cardiology * Dose medications for renal function * Avoid potential nephrotoxins * AM labs
[2019-05-20] MEDS: NICOTINE 14 MG/24 HR PATCH TD SCH (10:17)
[2019-05-20] MEDS: cefTRIAXone/NS 1 GM/50 ML 1 GM/50 ML BAG IV SCH (10:17)
[2019-05-20] MEDS: DOCUSATE SODIUM 100 MG CAP PO SCH ×2 (10:18→22:03)
[2019-05-20] MEDS: amLODIPine 10 MG TAB PO SCH (10:18)
[2019-05-20] MEDS: carvediloL 25 MG TAB PO SCH (10:18)
[2019-05-20] MEDS: HEPARIN 5,000 UNIT/1 ML VIAL SUB-Q SCH ×2 (10:19→22:04)
[2019-05-20] MEDS ORDERED: SODIUM POLYSTYRENE 15 GM/60 ML ORAL LIQD PO ONE (11:30)
--- NOTE | 2019-05-20 11:33 | Consultation ---
History of Present Illness Consult date: 05/20/19 Consult reason: other (Pulmonary edema) History of present illness: This is a 53-year old male with a recent history of paroxysmal atrial fibrill ation and mild dilated cardiomyopathy, ejection fraction 40-45% by an echocardiogram done at [facility] one week ago. He was recommended warfarin for oral anticoagulation. There is also and incidental finding of a right upper lung mass by chest CT recommended for outpatient surveillance. Co-m orbidities includes chronic hypertension, chronic kidney disease, tobacco abuse and obesity. Patient was brought in with acute onset of shortness of breath. Patient was discharge from [facility] less than 12 hours before returning to the emergency department. He had not yet filled his prescriptions. A chest x-ray revealed pulmonary edema. Noted a blood pressure of 201/125. Laboratory value shows a elevated LFT's, a creatinine of 3.3 and a potassium of 5.3. INR was therapeutic at 2.9. An ECG is sinus rhythm with occasional PACs. Past History Past Medical History: diabetes, heart failure, hypertension Past Surgical History: Other ( Broke femur in 1982) Social history: smoking (current every day smoker) Family history: no significant family history Medications and Allergies Allergies Allergy/AdvReac Type Severity Reaction Status Date / Time No Known Allergies Allergy Verified 05/19/19 17:17 Home Medications Medication Instructions Recorded Confirmed Last Taken Type Acetaminophen [Acetaminophen TAB] 325 mg PO Q4H PRN #30 tablet 11/19/17 05/20/19 Unknown Rx Ascorbic Acid [Vitamin C] 250 mg PO DAILY #30 11/19/17 05/20/19 Unknown Rx AtorvaSTATin [Lipitor] 20 mg PO QHS #30 tablet 11/19/17 05/20/19 Unknown Rx Carvedilol [Coreg] 25 mg PO BID #60 tablet 11/19/17 05/20/19 Unknown Rx amLODIPine 10 mg PO DAILY #30 tablet 11/19/17 05/20/19 Unknown Rx cloNIDine [Catapres] 0.1 mg PO TID #90 tablet 11/19/17 05/20/19 Unknown Rx hydrALAZINE [Apresoline TAB] 50 mg PO QID #120 tablet 11/19/17 05/20/19 Unknown Rx Active Meds: Active Medications Acetaminophen (Tylenol) 650 mg PO Q4H PRN PRN Reason: Pain MILD(1-3)/Fever >100.5/LUA Albuterol (Proventil) 2.5 mg IH Q3HRT PRN PRN Reason: Shortness Of Breath Albuterol/Ipratropium (Duoneb *Not For Prn Use*) 1 ampul IH Q6HRT [facility] Last Admin: 05/20/19 07:19 Dose: 1 ampul Documented by: Amlodipine Besylate (Amlodipine) 10 mg PO DAILY [facility] Last Admin: 05/20/19 10:18 Dose: 10 mg Documented by: Atorvastatin Calcium (Lipitor) 20 mg PO QHS [facility] Last Admin: 05/19/19 22:58 Dose: 20 mg Documented by: Carvedilol (Coreg) 25 mg PO BID [facility] Last Admin: 05/20/19 10:18 Dose: 25 mg Documented by: Dextrose (D50w (25gm) Syringe) 0 ml IV Q30MIN PRN; Protocol PRN Reason: Hypoglycemia Docusate Sodium (Colace) 100 mg PO BID [facility] Last Admin: 05/20/19 10:18 Dose: 100 mg Documented by: Furosemide (Lasix) 40 mg IV 0600,1800 [facility] Last Admin: 05/20/19 06:08 Dose: 40 mg Documented by: Heparin Sodium (Porcine) (Heparin) 5,000 unit SUB-Q Q12HR [facility] Last Admin: 05/20/19 10:19 Dose: 5,000 unit Documented by: Hydralazine HCl (Apresoline) 10 mg IV Q4H PRN PRN Reason: Blood Pressure Last Admin: 05/20/19 00:00 Dose: 10 mg Documented by: Ceftriaxone Sodium (Rocephin/Ns 1 Gm/50 Ml) 1 gm in 50 mls @ 100 mls/hr IV Q24HR [facility]; Protocol Last Admin: 05/20/19 10:17 Dose: 100 mls/hr Documented by: Insulin Human Regular (Humulin R) 0 units SUB-Q Q6HR [facility]; Protocol Last Admin: 05/20/19 06:07 Dose: Not Given Documented by: Methylprednisolone Sodium Succinate (Solu-Medrol) 60 mg IV Q8HR [facility] Last Admin: 05/20/19 06:07 Dose: 60 mg Documented by: Nicotine (Habitrol) 14 mg TD QDAY [facility] Last Admin: 05/20/19 10:17 Dose: Not Given Documented by: Ondansetron HCl (Zofran) 4 mg IV Q8H PRN PRN Reason: Nausea And Vomiting Sodium Bicarbonate (Sodium Bicarbonate) 650 mg PO TID [facility] Sodium Chloride (Sodium Chloride Flush Syringe 10 Ml) 10 ml IV BID [facility] Last Admin: 05/20/19 10:19 Dose: 10 ml Documented by: Sodium Chloride (Sodium Chloride Flush Syringe 10 Ml) 10 ml IV PRN PRN PRN Reason: LINE FLUSH Sodium Polystyrene Sulfonate (Kionex) 30 gm PO ONCE ONE Stop: 05/20/19 11:31 Physical Examination Vital Signs Temp Pulse Resp BP Pulse Ox 96.4 F L 120 H 32 H 201/125 99 05/19/19 17:17 05/19/19 17:17 05/19/19 17:17 05/19/19 17:17 05/19/19 17:17 General appearance: no acute distress HEENT: Positive: PERRL Neck: Positive: trachea midline Cardiac: Positive: Reg Rate and Rhythm Lungs: Positive: Decreased Breath Sounds Neuro: Positive: Grossly Intact Results 05/20/19 04:40 05/20/19 04:40 Cardiac Enzymes 05/19/19 Range/Units 17:41 AST 45 H (5-40) units/L Coagulation 05/19/19 Range/Units 17:41 PT 29.7 H (12.2-14.9) Sec. INR 2.90 H (0.87-1.13) APTT 38.2 H (24.2-36.6) Sec. CBC 05/19/19 05/20/19 Range/Units 18:57 04:40 WBC 14.5 H 8.1 (4.5-11.0) K/mm3 RBC 4.90 5.09 H (3.65-5.03) M/mm3 Hgb 11.4 L 12.0 (11.8-15.2) gm/dl Hct 37.0 38.0 (35.5-45.6) % Plt Count 210 201 (140-440) K/mm3 Comprehensive Metabolic Panel 05/19/19 05/20/19 Range/Units 17:41 04:40 Sodium 140 140 (137-145) mmol/L Potassium 5.3 H 5.7 H (3.6-5.0) mmol/L Chloride 110.2 H 108.2 H (98-107) mmol/L Carbon Dioxide 18 L 18 L (22-30) mmol/L BUN 74 H 73 H (9-20) mg/dL Creatinine 3.3 H 3.1 H (0.8-1.5) mg/dL Glucose 122 H 130 H (75-100) mg/dL Calcium 8.7 9.0 (8.4-10.2) mg/dL AST 45 H (5-40) units/L ALT 226 H (7-56) units/L Alkaline Phosphatase 264 H (35-129) units/L Total Protein 6.0 L (6.3-8.2) g/dL Albumin 4.0 (3.9-5) g/dL Assessment and Plan Acute pulmonary edema Mild Dilated cardiomyopathy EF 40-45% by echo at [facility] 04/2019 Paroxysmal Afib previously treated with warfarin. INR 2.9 on presentation Chronic renal disease Hyperkalemia Elevated LFTs Hypertension, uncontrolled Hx of right upper lung mass
--- NOTE | 2019-05-20 11:42 | Gastroenterology Consultation ---
<KENYA ARGUELLES - Last Filed: 05/20/19 11:59> History of Present Illness - Reason for Consult Consult date: 05/20/19 elevated LFTs Requesting physician: SADE PICHARDO - History of Present Illness Patient is a 53 y/o male with PMH of CKD, HTN, CHF, DM, Afib (on warfarin), and tobacco abuse who presented to ED with c/o SOB. He was admitted/currently being treated for acute hypoxic respiratory failure, acute on chronic heart failure, pulmonary edema, KRYS on CKD, and hyperkalemia. Nephrology and cardiology following. GI has been consulted for elevated LFTs. This morning patient was resting in bed w/o acute distress. Currently w/o GI complaints. Denies abd pain, N/V, jaundice, signs of bleeding, or LGI symptoms. Reports no hx or Fhx of liver disease. Drinks alcohol only occasionally (last alcohol several months ago per pt). No IV drug use or new medications. Past History Past Medical History: diabetes, heart failure, hypertension Past Surgical History: Other ( Broke femur in 1982) Social history: smoking (current every day smoker) Family history: no significant family history Medications and Allergies Allergies Allergy/AdvReac Type Severity Reaction Status Date / Time No Known Allergies Allergy Verified 05/19/19 17:17 Home Medications Medication Instructions Recorded Confirmed Last Taken Type Acetaminophen [Acetaminophen TAB] 325 mg PO Q4H PRN #30 tablet 11/19/17 05/20/19 Unknown Rx Ascorbic Acid [Vitamin C] 250 mg PO DAILY #30 11/19/17 05/20/19 Unknown Rx AtorvaSTATin [Lipitor] 20 mg PO QHS #30 tablet 11/19/17 05/20/19 Unknown Rx Carvedilol [Coreg] 25 mg PO BID #60 tablet 11/19/17 05/20/19 Unknown Rx amLODIPine 10 mg PO DAILY #30 tablet 11/19/17 05/20/19 Unknown Rx cloNIDine [Catapres] 0.1 mg PO TID #90 tablet 11/19/17 05/20/19 Unknown Rx hydrALAZINE [Apresoline TAB] 50 mg PO QID #120 tablet 11/19/17 05/20/19 Unknown Rx Active Meds: Active Medications Acetaminophen (Tylenol) 650 mg PO Q4H PRN PRN Reason: Pain MILD(1-3)/Fever >100.5/LUA Albuterol (Proventil) 2.5 mg IH Q3HRT PRN PRN Reason: Shortness Of Breath Albuterol/Ipratropium (Duoneb *Not For Prn Use*) 1 ampul IH Q6HRT [facility] Last Admin: 05/20/19 07:19 Dose: 1 ampul Documented by: Amlodipine Besylate (Amlodipine) 10 mg PO DAILY [facility] Last Admin: 05/20/19 10:18 Dose: 10 mg Documented by: Atorvastatin Calcium (Lipitor) 20 mg PO QHS [facility] Last Admin: 05/19/19 22:58 Dose: 20 mg Documented by: Carvedilol (Coreg) 25 mg PO BID [facility] Last Admin: 05/20/19 10:18 Dose: 25 mg Documented by: Dextrose (D50w (25gm) Syringe) 0 ml IV Q30MIN PRN; Protocol PRN Reason: Hypoglycemia Docusate Sodium (Colace) 100 mg PO BID [facility] Last Admin: 05/20/19 10:18 Dose: 100 mg Documented by: Furosemide (Lasix) 40 mg IV 0600,1800 [facility] Last Admin: 05/20/19 06:08 Dose: 40 mg Documented by: Heparin Sodium (Porcine) (Heparin) 5,000 unit SUB-Q Q12HR [facility] Last Admin: 05/20/19 10:19 Dose: 5,000 unit Documented by: Hydralazine HCl (Apresoline) 10 mg IV Q4H PRN PRN Reason: Blood Pressure Last Admin: 05/20/19 00:00 Dose: 10 mg Documented by: Ceftriaxone Sodium (Rocephin/Ns 1 Gm/50 Ml) 1 gm in 50 mls @ 100 mls/hr IV Q24HR [facility]; Protocol Last Admin: 05/20/19 10:17 Dose: 100 mls/hr Documented by: Insulin Human Regular (Humulin R) 0 units SUB-Q Q6HR [facility]; Protocol Last Admin: 05/20/19 06:07 Dose: Not Given Documented by: Methylprednisolone Sodium Succinate (Solu-Medrol) 60 mg IV Q8HR [facility] Last Admin: 05/20/19 06:07 Dose: 60 mg Documented by: Nicotine (Habitrol) 14 mg TD QDAY [facility] Last Admin: 05/20/19 10:17 Dose: Not Given Documented by: Ondansetron HCl (Zofran) 4 mg IV Q8H PRN PRN Reason: Nausea And Vomiting Sodium Bicarbonate (Sodium Bicarbonate) 650 mg PO TID [facility] Sodium Chloride (Sodium Chloride Flush Syringe 10 Ml) 10 ml IV BID [facility] Last Admin: 05/20/19 10:19 Dose: 10 ml Documented by: Sodium Chloride (Sodium Chloride Flush Syringe 10 Ml) 10 ml IV PRN PRN PRN Reason: LINE FLUSH medications reviewed/updated as required Review of Systems - Review of Systems All systems: negative Respiratory: shortness of breath Gastrointestinal: no abdominal pain, no nausea, no vomiting, no jaundice Exam - Constitutional Vital Signs: Temp Pulse Resp BP Pulse Ox 97.5 F L 88 23 173/112 90 05/20/19 04:00 05/20/19 11:00 05/20/19 11:00 05/20/19 11:00 05/20/19 11:00 General appearance: no acute distress - EENT Eyes: PERRL, EOM intact ENT: hearing intact - Respiratory Respiratory: bilateral: diminished - Cardiovascular Rhythm: regular - Gastrointestinal General gastrointestinal: Present: soft, non-tender, non-distended, normal bowel sounds - Integumentary Integumentary: Present: warm, dry - Neurologic Neurological: alert and oriented x3 - Labs CBC & Chem 7: 05/20/19 04:40 05/20/19 04:40 Lab Results: Laboratory Results - last 24 hr 05/19/19 05/19/19 05/19/19 17:41 17:41 17:41 WBC RBC Hgb Hct MCV MCH MCHC RDW Plt Count Add Manual Diff Total Counted Seg Neutrophils % Seg Neuts % (Manual) Band Neutrophils % Lymphocytes % (Manual) Reactive Lymphs % (Man) Monocytes % (Manual) Eosinophils % (Manual) Basophils % (Manual) Metamyelocytes % Myelocytes % Promyelocytes % Blast Cells % Nucleated RBC % Seg Neutrophils # Man Band Neutrophils # Lymphocytes # (Manual) Abs React Lymphs (Man) Monocytes # (Manual) Eosinophils # (Manual) Basophils # (Manual) Metamyelocytes # Myelocytes # Promyelocytes # Blast Cells # WBC Morphology Hypersegmented Neuts Hyposegmented Neuts Hypogranular Neuts Smudge Cells Toxic Granulation Toxic Vacuolation Dohle Bodies Pelger-Huet Anomaly Anamaria Rods Platelet Estimate Clumped Platelets Plt Clumps, EDTA Large Platelets Giant Platelets Platelet Satelliting Plt Morphology Comment RBC Morphology Dimorphic RBCs Polychromasia Hypochromasia Poikilocytosis Anisocytosis Microcytosis Macrocytosis Spherocytes Pappenheimer Bodies Sickle Cells Target Cells Tear Drop Cells Ovalocytes Helmet Cells [place] Bodies [place] Rings Jg Cells Bite Cells Crenated Cell Elliptocytes Acanthocytes (Spur) Rouleaux Hemoglobin C Crystals Schistocytes Malaria parasites Demond Bodies Hem Pathologist Commnt PT 29.7 H INR 2.90 H APTT 38.2 H POC ABG pH POC ABG pCO2 POC ABG pO2 POC ABG HCO3 POC ABG Total CO2 POC ABG O2 Sat POC ABG Base Excess FiO2 Sodium 140 Potassium 5.3 H Chloride 110.2 H Carbon Dioxide 18 L Anion Gap 17 BUN 74 H Creatinine 3.3 H Estimated GFR 24 BUN/Creatinine Ratio 22 Glucose 122 H POC Glucose Lactic Acid Calcium 8.7 Magnesium 2.00 Total Bilirubin 0.40 AST 45 H ALT 226 H Alkaline Phosphatase 264 H Total Creatine Kinase 63 Troponin T 0.023 Total Protein 6.0 L Albumin 4.0 Albumin/Globulin Ratio 2.0 Urine Color Urine Turbidity Urine pH Ur Specific [place] Urine Protein Urine Glucose (UA) Urine Ketones Urine Blood Urine Nitrite Urine Bilirubin Urine Urobilinogen Ur Leukocyte Esterase Urine WBC (Auto) Urine RBC (Auto) U Epithel Cells (Auto) Urine Yeast (Budding) 05/19/19 05/19/19 05/19/19 18:41 18:57 19:12 WBC 14.5 H RBC 4.90 Hgb 11.4 L Hct 37.0 MCV 75 L MCH 23 L MCHC 31 L RDW 17.5 H Plt Count 210 Add Manual Diff Total Counted Seg Neutrophils % Seg Neuts % (Manual) Band Neutrophils % Lymphocytes % (Manual) Reactive Lymphs % (Man) Monocytes % (Manual) Eosinophils % (Manual) Basophils % (Manual) Metamyelocytes % Myelocytes % Promyelocytes % Blast Cells % Nucleated RBC % Seg Neutrophils # Man Band Neutrophils # Lymphocytes # (Manual) Abs React Lymphs (Man) Monocytes # (Manual) Eosinophils # (Manual) Basophils # (Manual) Metamyelocytes # Myelocytes # Promyelocytes # Blast Cells # WBC Morphology Hypersegmented Neuts Hyposegmented Neuts Hypogranular Neuts Smudge Cells Toxic Granulation Toxic Vacuolation Dohle Bodies Pelger-Huet Anomaly Anamaria Rods Platelet Estimate Clumped Platelets Plt Clumps, EDTA Large Platelets Giant Platelets Platelet Satelliting Plt Morphology Comment RBC Morphology Dimorphic RBCs Polychromasia Hypochromasia Poikilocytosis Anisocytosis Microcytosis Macrocytosis Spherocytes Pappenheimer Bodies Sickle Cells Target Cells Tear Drop Cells Ovalocytes Helmet Cells [place] Bodies [place] Rings Jg Cells Bite Cells Crenated Cell Elliptocytes Acanthocytes (Spur) Rouleaux Hemoglobin C Crystals Schistocytes Malaria parasites Demond Bodies Hem Pathologist Commnt PT INR APTT POC ABG pH TNR 7.318 L POC ABG pCO2 TNR 36.8 POC ABG pO2 TNR 199 H POC ABG HCO3 TNR 18.9 POC ABG Total CO2 TNR 20 POC ABG O2 Sat TNR 100 POC ABG Base Excess TNR -7 FiO2 TNR 60 Sodium Potassium Chloride Carbon Dioxide Anion Gap BUN Creatinine Estimated GFR BUN/Creatinine Ratio Glucose POC Glucose Lactic Acid Calcium Magnesium Total Bilirubin AST ALT Alkaline Phosphatase Total Creatine Kinase Troponin T Total Protein Albumin Albumin/Globulin Ratio Urine Color Urine Turbidity Urine pH Ur Specific [place] Urine Protein Urine Glucose (UA) Urine Ketones Urine Blood Urine Nitrite Urine Bilirubin Urine Urobilinogen Ur Leukocyte Esterase Urine WBC (Auto) Urine RBC (Auto) U Epithel Cells (Auto) Urine Yeast (Budding) 05/19/19 05/19/19 05/19/19 21:58 23:47 Unknown WBC RBC Hgb Hct MCV MCH MCHC RDW Plt Count Add Manual Diff Total Counted Seg Neutrophils % Seg Neuts % (Manual) Band Neutrophils % Lymphocytes % (Manual) Reactive Lymphs % (Man) Monocytes % (Manual) Eosinophils % (Manual) Basophils % (Manual) Metamyelocytes % Myelocytes % Promyelocytes % Blast Cells % Nucleated RBC % Seg Neutrophils # Man Band Neutrophils # Lymphocytes # (Manual) Abs React Lymphs (Man) Monocytes # (Manual) Eosinophils # (Manual) Basophils # (Manual) Metamyelocytes # Myelocytes # Promyelocytes # Blast Cells # WBC Morphology Hypersegmented Neuts Hyposegmented Neuts Hypogranular Neuts Smudge Cells Toxic Granulation Toxic Vacuolation Dohle Bodies Pelger-Huet Anomaly Anamaria Rods Platelet Estimate Clumped Platelets Plt Clumps, EDTA Large Platelets Giant Platelets Platelet Satelliting Plt Morphology Comment RBC Morphology Dimorphic RBCs Polychromasia Hypochromasia Poikilocytosis Anisocytosis Microcytosis Macrocytosis Spherocytes Pappenheimer Bodies Sickle Cells Target Cells Tear Drop Cells Ovalocytes Helmet Cells [place] Bodies [place] Rings Sullivan Cells Bite Cells Crenated Cell Elliptocytes Acanthocytes (Spur) Rouleaux Hemoglobin C Crystals Schistocytes Malaria parasites Demond Bodies Hem Pathologist Commnt PT INR APTT POC ABG pH POC ABG pCO2 POC ABG pO2 POC ABG HCO3 POC ABG Total CO2 POC ABG O2 Sat POC ABG Base Excess FiO2 Sodium Potassium Chloride Carbon Dioxide Anion Gap BUN Creatinine Estimated GFR BUN/Creatinine Ratio Glucose POC Glucose 112 H Lactic Acid 1.50 Calcium Magnesium Total Bilirubin AST ALT Alkaline Phosphatase Total Creatine Kinase Troponin T Total Protein Albumin Albumin/Globulin Ratio Urine Color Yellow Urine Turbidity Clear Urine pH 5.0 Ur Specific [place] 1.013 Urine Protein 100 mg/dl Urine Glucose (UA) Neg Urine Ketones Neg Urine Blood Neg Urine Nitrite Neg Urine Bilirubin Neg Urine Urobilinogen < 2.0 Ur Leukocyte Esterase Neg Urine WBC (Auto) 5.0 Urine RBC (Auto) 4.0 U Epithel Cells (Auto) < 1.0 Urine Yeast (Budding) Few 05/20/19 05/20/19 05/20/19 04:40 04:40 05:37 WBC 8.1 RBC 5.09 H Hgb 12.0 Hct 38.0 MCV 75 L MCH 24 L MCHC 32 RDW 17.3 H Plt Count 201 Add Manual Diff Complete Total Counted 100 Seg Neutrophils % Mural Artist Seg Neuts % (Manual) 94.0 H Band Neutrophils % 0 Lymphocytes % (Manual) 6.0 L Reactive Lymphs % (Man) 0 Monocytes % (Manual) 0 Eosinophils % (Manual) 0 Basophils % (Manual) 0 Metamyelocytes % 0 Myelocytes % 0 Promyelocytes % 0 Blast Cells % 0 Nucleated RBC % Not Reportable Seg Neutrophils # Man 7.6 Band Neutrophils # 0.0 Lymphocytes # (Manual) 0.5 L Abs React Lymphs (Man) 0.0 Monocytes # (Manual) 0.0 Eosinophils # (Manual) 0.0 Basophils # (Manual) 0.0 Metamyelocytes # 0.0 Myelocytes # 0.0 Promyelocytes # 0.0 Blast Cells # 0.0 WBC Morphology Not Reportable Hypersegmented Neuts Not Reportable Hyposegmented Neuts Not Reportable Hypogranular Neuts Not Reportable Smudge Cells Not Reportable Toxic Granulation Not Reportable Toxic Vacuolation Not Reportable Dohle Bodies Not Reportable Pelger-Huet Anomaly Not Reportable Anamaria Rods Not Reportable Platelet Estimate Consistent w auto Clumped Platelets Not Reportable Plt Clumps, EDTA Not Reportable Large Platelets Not Reportable Giant Platelets Not Reportable Platelet Satelliting Not Reportable Plt Morphology Comment Not Reportable RBC Morphology Not Reportable Dimorphic RBCs Not Reportable Polychromasia Not Reportable Hypochromasia Not Reportable Poikilocytosis Not Reportable Anisocytosis 1+ Microcytosis Not Reportable Macrocytosis Not Reportable Spherocytes Not Reportable Pappenheimer Bodies Not Reportable Sickle Cells Not Reportable Target Cells Not Reportable Tear Drop Cells Not Reportable Ovalocytes Not Reportable Helmet Cells Not Reportable [place] Bodies Not Reportable [place] Rings Not Reportable Jg Cells Not Reportable Bite Cells Not Reportable Crenated Cell Not Reportable Elliptocytes Not Reportable Acanthocytes (Spur) Not Reportable Rouleaux Not Reportable Hemoglobin C Crystals Not Reportable Schistocytes Not Reportable Malaria parasites Not Reportable Demond Bodies Not Reportable Hem Pathologist Commnt No PT INR APTT POC ABG pH POC ABG pCO2 POC ABG pO2 POC ABG HCO3 POC ABG Total CO2 POC ABG O2 Sat POC ABG Base Excess FiO2 Sodium 140 Potassium 5.7 H Chloride 108.2 H Carbon Dioxide 18 L Anion Gap 20 BUN 73 H Creatinine 3.1 H Estimated GFR 25 BUN/Creatinine Ratio 24 Glucose 130 H POC Glucose 115 H Lactic Acid Calcium 9.0 Magnesium Total Bilirubin AST ALT Alkaline Phosphatase Total Creatine Kinase Troponin T Total Protein Albumin Albumin/Globulin Ratio Urine Color Urine Turbidity Urine pH Ur Specific [place] Urine Protein Urine Glucose (UA) Urine Ketones Urine Blood Urine Nitrite Urine Bilirubin Urine Urobilinogen Ur Leukocyte Esterase Urine WBC (Auto) Urine RBC (Auto) U Epithel Cells (Auto) Urine Yeast (Budding) Assessment and Plan 1.elevated LFTs -plt WNL -INR 2.90 (on warfarin) -LFTs-T.emiliana 0.40, AST 45, ALT 226, alk phos 264 -etiology-likely 2/2 congestion vs other -clinically, patient is w/o GI complaints. Denies abd pain or N/V. -will order acute hepatitis panel and abd U/S for further evaluation -avoid hepatotoxic agents -continue to trend labs and supportive care -will follow <BALBIR MORSE R - Last Filed: 05/21/19 12:33> Medications and Allergies Active Meds: Active Medications Acetaminophen (Tylenol) 650 mg PO Q4H PRN PRN Reason: Pain MILD(1-3)/Fever >100.5/LUA Albuterol (Proventil) 2.5 mg IH Q3HRT PRN PRN Reason: Shortness Of Breath Albuterol/Ipratropium (Duoneb *Not For Prn Use*) 1 ampul IH Q6HRT [facility] Last Admin: 05/21/19 08:02 Dose: 1 ampul Documented by: Atorvastatin Calcium (Lipitor) 20 mg PO QHS [facility] Last Admin: 05/20/19 22:04 Dose: 20 mg Documented by: Dextrose (D50w (25gm) Syringe) 0 ml IV Q30MIN PRN; Protocol PRN Reason: Hypoglycemia Docusate Sodium (Colace) 100 mg PO BID [facility] Last Admin: 05/21/19 11:06 Dose: 100 mg Documented by: Furosemide (Lasix) 40 mg IV 0600,1800 [facility] Last Admin: 05/21/19 05:41 Dose: 40 mg Documented by: Heparin Sodium (Porcine) (Heparin) 5,000 unit SUB-Q Q12HR [facility] Last Admin: 05/21/19 11:08 Dose: 5,000 unit Documented by: Hydralazine HCl (Apresoline) 10 mg IV Q4H PRN PRN Reason: Blood Pressure Last Admin: 05/20/19 18:19 Dose: 10 mg Documented by: Hydralazine HCl (Apresoline) 10 mg IV Q4HR PRN PRN Reason: Blood Pressure Ceftriaxone Sodium (Rocephin/Ns 1 Gm/50 Ml) 1 gm in 50 mls @ 100 mls/hr IV Q24HR [facility]; Protocol Last Admin: 05/21/19 11:28 Dose: 100 mls/hr Documented by: Insulin Human Regular (Humulin R) 0 units SUB-Q Q6HR [facility]; Protocol Last Admin: 05/21/19 07:30 Dose: Not Given Documented by: Labetalol HCl (Labetalol) 10 mg IV Q4H PRN PRN Reason: SBP=>180 Methylprednisolone Sodium Succinate (Solu-Medrol) 60 mg IV Q8HR [facility] Last Admin: 05/21/19 05:41 Dose: 60 mg Documented by: Metoprolol Tartrate (Metoprolol) 50 mg PO BID [facility] Last Admin: 05/21/19 11:07 Dose: 50 mg Documented by: Nicotine (Habitrol) 14 mg TD QDAY [facility] Last Admin: 05/21/19 11:06 Dose: Not Given Documented by: Nifedipine (Procardia Xl) 90 mg PO QDAY [facility] Last Admin: 05/21/19 11:06 Dose: 90 mg Documented by: Ondansetron HCl (Zofran) 4 mg IV Q8H PRN PRN Reason: Nausea And Vomiting Sodium Bicarbonate (Sodium Bicarbonate) 650 mg PO TID [facility] Last Admin: 05/21/19 08:32 Dose: 650 mg Documented by: Sodium Chloride (Sodium Chloride Flush Syringe 10 Ml) 10 ml IV BID [facility] Last Admin: 05/21/19 11:08 Dose: 10 ml Documented by: Sodium Chloride (Sodium Chloride Flush Syringe 10 Ml) 10 ml IV PRN PRN PRN Reason: LINE FLUSH Exam - Constitutional Vital Signs: Temp Pulse Resp BP Pulse Ox 98.0 F 88 18 153/87 97 05/21/19 04:52 05/21/19 11:07 05/21/19 08:02 05/21/19 11:07 05/21/19 08:02 - Labs CBC & Chem 7: 05/21/19 05:23 05/21/19 05:23 Lab Results: Laboratory Results - last 24 hr 05/20/19 05/20/19 05/20/19 04:40 16:55 22:50 WBC RBC Hgb Hct MCV MCH MCHC RDW Plt Count Sodium Potassium Chloride Carbon Dioxide Anion Gap BUN Creatinine Estimated GFR BUN/Creatinine Ratio Glucose POC Glucose 123 H 122 H Hemoglobin A1c 6.1 H Calcium Magnesium Total Bilirubin Direct Bilirubin Indirect Bilirubin AST ALT Alkaline Phosphatase Total Protein Albumin Albumin/Globulin Ratio Hepatitis A IgM Ab Hep Bs Antigen Hep B Core IgM Ab Hepatitis C Antibody 05/21/19 05/21/19 05/21/19 05:23 05:23 05:23 WBC 11.4 H RBC 4.97 Hgb 11.6 L Hct 36.7 MCV 74 L MCH 23 L MCHC 32 RDW 17.2 H Plt Count 221 Sodium 142 Potassium 4.7 Chloride 102.4 Carbon Dioxide 20 L Anion Gap 24 BUN 84 H Creatinine 2.9 H Estimated GFR 27 BUN/Creatinine Ratio 29 Glucose 129 H POC Glucose Hemoglobin A1c Calcium 9.0 Magnesium 2.00 Total Bilirubin 0.30 Direct Bilirubin < 0.2 Indirect Bilirubin 0.1 AST 13 ALT 126 H Alkaline Phosphatase 199 H Total Protein 6.0 L Albumin 3.8 L Albumin/Globulin Ratio 1.7 Hepatitis A IgM Ab Non-reactive Hep Bs Antigen Non-reactive Hep B Core IgM Ab Non-reactive Hepatitis C Antibody Non-reactive 05/21/19 05/21/19 09:08 11:57 WBC RBC Hgb Hct MCV MCH MCHC RDW Plt Count Sodium Potassium Chloride Carbon Dioxide Anion Gap BUN Creatinine Estimated GFR BUN/Creatinine Ratio Glucose POC Glucose 163 H 154 H Hemoglobin A1c Calcium Magnesium Total Bilirubin Direct Bilirubin Indirect Bilirubin AST ALT Alkaline Phosphatase Total Protein Albumin Albumin/Globulin Ratio Hepatitis A IgM Ab Hep Bs Antigen Hep B Core IgM Ab Hepatitis C Antibody Assessment and Plan Pt seen and examined. 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 Plan as noted.
[2019-05-20] MEDS: SODIUM BICARBONATE 650 MG TAB PO SCH ×2 (13:14→20:11)
[2019-05-20] MEDS: NIFEdipine XL 90 MG TAB PO SCH (18:18)
[2019-05-20] MEDS: hydrALAZINE 20 MG/1 ML INJ IV PRN ×2 (18:19)
--- NOTE | 2019-05-20 18:24 | Progress Note ---
Assessment and Plan Assessment and plan: Patient is a 53-year-old -[place] man with a history of CKD 3, hypertension, paroxysmal atrial fibrillation, mild dilated cardiomyopathy, estimated ejection fraction 40-45% by an echocardiogram done at [facility] about one week ago, diabetes mellitus type 2 and tobacco abuse who pres ents to [facility] ED via EMS with complaints of fluid on lungs and difficulty breathing. Patient states that he was admitted to [facility] for approximately 7-8 days for "breathing issues" and was discharged yesterday on 05/18/19. He returns here with severe worsening SOB. He was hypoxic so BIPAP was started. Patient denies home O2 use. He reports that his "water pill" was discontinued, which cause him to ave fluid build up. * pCXR Impression: New-onset moderate CHF, advanced destructive emphysema right upper lobe Diagnoses and plan: Acute on chronic decompensated systolic heart failure: -treat with iv lasix bid, Cardiology consulted, input noted Hypertensive urgency -BP on admission 201/125 -Hx Hypertension -Continue to monitor BP -Resume home antihypertensive meds to optimize BP -IV antihypertensive when necessary Acute Respiratory Failure -ABG on admission 7.318/36.8/199/18.9 -No baseline home oxygen requirements -CXR shows Advanced destructive emphysema right upper lobe -Currently on BiPaP -Respiraroty treat and assess -Continue supprtive care -Continue to Monitor Flash Pulmonary Edema -Hx of CHF -EF 60-65% with dilated left atrium with moderate mitral regurgitation seen on Echo done 11/17/17 -CXR shows moderate CHF -Recently discharged from [facility] on 05/18 -IV Lasix BID -Scheduled DuoNebs, and albuterol prn -IV systemic steroids -Cardiology consulted SIRS -TMAX 96.4 -HR 93 -RR 29 -WBC 14.5K Leukocytosis -WBC on admission 14.5 -Mild hypothermia with temperature 96.4 -Blood Cultures pending -Lactic Acid pending -Empirically on Rocephin -Continue to monitor CBC Anemia -Hemoglobin on admission 11.4 -No s/s of active bleeding -Continue to monitor hemoglobin -Transfuse as needed KRYS -Cr on admission 3.3 -Hx of CDK3 GFR 24 -Avoid nephrotoxic agents -Renal dose all meds -Nephrology consulted Elevated LFTs -AST 45, ALT 226 -GI Consulted DM -POC BG monitoring -SSI coverage prn -HgbA1C pending Tobacco abuse -Current every day smoker -Counseled for cessation -Nicotine patch when necessary DVT PPX -On Heparin History Interval history: Patient was seen and examined. Follow-up on current diagnosis of CHF, still sob but better, off bipap on 4 liters this morning. No overnight events reported to me. Patient denies any chest pain, shortness breath, nausea/vomiting or severe headaches. Imaging, nursing note, chart, labs and old chart reviewed. Discussed with patient. Hospitalist Physical - Physical exam Narrative exam: Gen: ill appearing, mild increase accessory muscle usage, Awake, Alert, [place] ated HEENT: NCAT, EOMI, PERRL, OP Clear Neck: supple, no adenopathy, no thyromegaly, JVD CVS/Heart: RRR, normal S1S2, pulses present bilaterally Chest/Lungs: diminished with bibasilar crackles, Symmetrical chest expansion, good air entry bilaterally GI/Abdomen: soft, NTND, good bowel sounds, no guarding or rebound /Bladder: no suprapubic tenderness, no CVA or paraspinal tenderness Extermity/Skin: leg pre-tibial edema MSK: FROM x 4 Neuro: CN 2-12 grossly intact, no new focal deficits Psych: calm - Constitutional Vitals: Temp Pulse Resp BP Pulse Ox 97.4 F L 92 H 15 185/111 97 05/20/19 12:00 05/20/19 18:19 05/20/19 18:00 05/20/19 18:19 05/20/19 18:00 General appearance: Present: no acute distress Results - Labs CBC & Chem 7: 05/20/19 04:40 05/20/19 04:40 Labs: Laboratory Last Values WBC 8.1 K/mm3 (4.5-11.0) 05/20/19 04:40 RBC 5.09 M/mm3 (3.65-5.03) H 05/20/19 04:40 Hgb 12.0 gm/dl (11.8-15.2) 05/20/19 04:40 Hct 38.0 % (35.5-45.6) 05/20/19 04:40 MCV 75 fl (84-94) L 05/20/19 04:40 MCH 24 pg (28-32) L 05/20/19 04:40 MCHC 32 % (32-34) 05/20/19 04:40 RDW 17.3 % (13.2-15.2) H 05/20/19 04:40 Plt Count 201 K/mm3 (140-440) 05/20/19 04:40 Add Manual Diff Complete 05/20/19 04:40 Total Counted 100 05/20/19 04:40 Seg Neutrophils % Candy Roller 05/20/19 04:40 Seg Neuts % (Manual) 94.0 % (40.0-70.0) H 05/20/19 04:40 Band Neutrophils % 0 % 05/20/19 04:40 Lymphocytes % (Manual) 6.0 % (13.4-35.0) L 05/20/19 04:40 Reactive Lymphs % (Man) 0 % 05/20/19 04:40 Monocytes % (Manual) 0 % (0.0-7.3) 05/20/19 04:40 Eosinophils % (Manual) 0 % (0.0-4.3) 05/20/19 04:40 Basophils % (Manual) 0 % (0.0-1.8) 05/20/19 04:40 Metamyelocytes % 0 % 05/20/19 04:40 Myelocytes % 0 % 05/20/19 04:40 Promyelocytes % 0 % 05/20/19 04:40 Blast Cells % 0 % 05/20/19 04:40 Nucleated RBC % Not Reportable 05/20/19 04:40 Seg Neutrophils # Man 7.6 K/mm3 (1.8-7.7) 05/20/19 04:40 Band Neutrophils # 0.0 K/mm3 05/20/19 04:40 Lymphocytes # (Manual) 0.5 K/mm3 (1.2-5.4) L 05/20/19 04:40 Abs React Lymphs (Man) 0.0 K/mm3 05/20/19 04:40 Monocytes # (Manual) 0.0 K/mm3 (0.0-0.8) 05/20/19 04:40 Eosinophils # (Manual) 0.0 K/mm3 (0.0-0.4) 05/20/19 04:40 Basophils # (Manual) 0.0 K/mm3 (0.0-0.1) 05/20/19 04:40 Metamyelocytes # 0.0 K/mm3 05/20/19 04:40 Myelocytes # 0.0 K/mm3 05/20/19 04:40 Promyelocytes # 0.0 K/mm3 05/20/19 04:40 Blast Cells # 0.0 K/mm3 05/20/19 04:40 WBC Morphology Not Reportable 05/20/19 04:40 Hypersegmented Neuts Not Reportable 05/20/19 04:40 Hyposegmented Neuts Not Reportable 05/20/19 04:40 Hypogranular Neuts Not Reportable 05/20/19 04:40 Smudge Cells Not Reportable 05/20/19 04:40 Toxic Granulation Not Reportable 05/20/19 04:40 Toxic Vacuolation Not Reportable 05/20/19 04:40 Dohle Bodies Not Reportable 05/20/19 04:40 Pelger-Huet Anomaly Not Reportable 05/20/19 04:40 Anamaria Rods Not Reportable 05/20/19 04:40 Platelet Estimate Consistent w auto 05/20/19 04:40 Clumped Platelets Not Reportable 05/20/19 04:40 Plt Clumps, EDTA Not Reportable 05/20/19 04:40 Large Platelets Not Reportable 05/20/19 04:40 Giant Platelets Not Reportable 05/20/19 04:40 Platelet Satelliting Not Reportable 05/20/19 04:40 Plt Morphology Comment Not Reportable 05/20/19 04:40 RBC Morphology Not Reportable 05/20/19 04:40 Dimorphic RBCs Not Reportable 05/20/19 04:40 Polychromasia Not Reportable 05/20/19 04:40 Hypochromasia Not Reportable 05/20/19 04:40 Poikilocytosis Not Reportable 05/20/19 04:40 Anisocytosis 1+ 05/20/19 04:40 Microcytosis Not Reportable 05/20/19 04:40 Macrocytosis Not Reportable 05/20/19 04:40 Spherocytes Not Reportable 05/20/19 04:40 Pappenheimer Bodies Not Reportable 05/20/19 04:40 Sickle Cells Not Reportable 05/20/19 04:40 Target Cells Not Reportable 05/20/19 04:40 Tear Drop Cells Not Reportable 05/20/19 04:40 Ovalocytes Not Reportable 05/20/19 04:40 Helmet Cells Not Reportable 05/20/19 04:40 [employer] Bodies Not Reportable 05/20/19 04:40 [place] Rings Not Reportable 05/20/19 04:40 Jg Cells Not Reportable 05/20/19 04:40 Bite Cells Not Reportable 05/20/19 04:40 Crenated Cell Not Reportable 05/20/19 04:40 Elliptocytes Not Reportable 05/20/19 04:40 Acanthocytes (Spur) Not Reportable 05/20/19 04:40 Rouleaux Not Reportable 05/20/19 04:40 Hemoglobin C Crystals Not Reportable 05/20/19 04:40 Schistocytes Not Reportable 05/20/19 04:40 Malaria parasites Not Reportable 05/20/19 04:40 Demond Bodies Not Reportable 05/20/19 04:40 Hem Pathologist Commnt No 05/20/19 04:40 PT 29.7 Sec. (12.2-14.9) H 05/19/19 17:41 INR 2.90 (0.87-1.13) H 05/19/19 17:41 APTT 38.2 Sec. (24.2-36.6) H 05/19/19 17:41 POC ABG pH 7.318 (7.35-7.45) L 05/19/19 19:12 POC ABG pCO2 36.8 (35-45) 05/19/19 19:12 POC ABG pO2 199 (80-105) H 05/19/19 19:12 POC ABG HCO3 18.9 (22-26 mml/L) 05/19/19 19:12 POC ABG Total CO2 20 (23-27mmol/L) 05/19/19 19:12 POC ABG O2 Sat 100 05/19/19 19:12 POC ABG Base Excess -7 ((-2) - (+3)mmol/L) 05/19/19 19:12 FiO2 60 % 05/19/19 19:12 Sodium 140 mmol/L (137-145) 05/20/19 04:40 Potassium 5.7 mmol/L (3.6-5.0) H 05/20/19 04:40 Chloride 108.2 mmol/L (98-107) H 05/20/19 04:40 Carbon Dioxide 18 mmol/L (22-30) L 05/20/19 04:40 Anion Gap 20 mmol/L 05/20/19 04:40 BUN 73 mg/dL (9-20) H 05/20/19 04:40 Creatinine 3.1 mg/dL (0.8-1.5) H 05/20/19 04:40 Estimated GFR 25 ml/min 05/20/19 04:40 BUN/Creatinine Ratio 24 % 05/20/19 04:40 Glucose 130 mg/dL (75-100) H 05/20/19 04:40 POC Glucose 110 (70-105) H 05/20/19 11:24 Lactic Acid 1.50 mmol/L (0.7-2.0) 05/19/19 21:58 Calcium 9.0 mg/dL (8.4-10.2) 05/20/19 04:40 Magnesium 2.00 mg/dL (1.7-2.3) 05/19/19 17:41 Total Bilirubin 0.40 mg/dL (0.1-1.2) 05/19/19 17:41 AST 45 units/L (5-40) H 05/19/19 17:41 ALT 226 units/L (7-56) H 05/19/19 17:41 Alkaline Phosphatase 264 units/L (35-129) H 05/19/19 17:41 Total Creatine Kinase 63 units/L (55-170) 05/19/19 17:41 Troponin T 0.023 ng/mL (0.00-0.029) 05/19/19 17:41 Total Protein 6.0 g/dL (6.3-8.2) L 05/19/19 17:41 Albumin 4.0 g/dL (3.9-5) 05/19/19 17:41 Albumin/Globulin Ratio 2.0 % 05/19/19 17:41 Urine Color Yellow (Yellow) 05/19/19 Unknown Urine Turbidity Clear (Clear) 05/19/19 Unknown Urine pH 5.0 (5.0-7.0) 05/19/19 Unknown Ur Specific [place] 1.013 (1.003-1.030) 05/19/19 Unknown Urine Protein 100 mg/dl mg/dL (Negative) 05/19/19 Unknown Urine Glucose (UA) Neg mg/dL (Negative) 05/19/19 Unknown Urine Ketones Neg mg/dL (Negative) 05/19/19 Unknown Urine Blood Neg (Negative) 05/19/19 Unknown Urine Nitrite Neg (Negative) 05/19/19 Unknown Urine Bilirubin Neg (Negative) 05/19/19 Unknown Urine Urobilinogen < 2.0 mg/dL (<2.0) 05/19/19 Unknown Ur Leukocyte Esterase Neg (Negative) 05/19/19 Unknown Urine WBC (Auto) 5.0 /HPF (0.0-6.0) 05/19/19 Unknown Urine RBC (Auto) 4.0 /HPF (0.0-6.0) 05/19/19 Unknown U Epithel Cells (Auto) < 1.0 /HPF (0-13.0) 05/19/19 Unknown Urine Yeast (Budding) Few /HPF 05/19/19 Unknown Active Medications - Current Medications Current Medications: Generic Name Dose Route Start Last Admin Trade Name Freq PRN Reason Stop Dose Admin Acetaminophen 650 mg 05/19/19 20:29 Tylenol PO Q4H PRN Pain MILD(1-3)/Fever >100.5/LUA Albuterol 2.5 mg 05/19/19 20:29 Proventil IH Q3HRT PRN Shortness Of Breath Albuterol/Ipratropium 1 ampul 05/20/19 02:00 05/20/19 13:30 Duoneb *Not For Prn Use* IH 1 ampul Q6HRT ALBIN Administration Atorvastatin Calcium 20 mg 05/19/19 22:00 05/19/19 22:58 Lipitor PO 20 mg QHS ALBIN Administration Dextrose 0 ml 05/19/19 22:06 D50w (25gm) Syringe IV Q30MIN PRN Hypoglycemia Protocol Docusate Sodium 100 mg 05/19/19 22:00 05/20/19 10:18 Colace PO 100 mg BID ALBIN Administration Furosemide 40 mg 05/20/19 06:00 05/20/19 18:19 Lasix IV 40 mg 0600,1800 ALBIN Administration Heparin Sodium (Porcine) 5,000 unit 05/19/19 22:00 05/20/19 10:19 Heparin SUB-Q 5,000 unit Q12HR ALBIN Administration Hydralazine HCl 10 mg 05/19/19 20:54 12/05/19 18:19 Apresoline IV 10 mg Q4H PRN Administration Blood Pressure Ceftriaxone Sodium 1 gm in 50 mls @ 100 mls/hr 05/19/19 21:00 05/20/19 10:17 Rocephin/Ns 1 Gm/50 Ml IV 100 mls/hr Q24HR ALBIN Administration Protocol Insulin Human Regular 0 units 05/20/19 00:00 05/20/19 13:14 Humulin R SUB-Q Not Given Q6HR [facility] Protocol Methylprednisolone Sodium Succinate 60 mg 05/19/19 22:00 05/20/19 13:14 Solu-Medrol IV 60 mg Q8HR ALBIN Administration Metoprolol Tartrate 50 mg 05/20/19 22:00 Metoprolol PO BID ALBIN Nicotine 14 mg 05/20/19 10:00 05/20/19 10:17 Habitrol TD Not Given QDAY ALBIN Nifedipine 90 mg 05/20/19 15:00 05/20/19 18:18 Procardia Xl PO 90 mg QDAY ALBIN Administration Ondansetron HCl 4 mg 05/19/19 20:29 Zofran IV Q8H PRN Nausea And Vomiting Sodium Bicarbonate 650 mg 05/20/19 14:00 05/20/19 13:14 Sodium Bicarbonate PO 650 mg TID ALBIN Administration Sodium Chloride 10 ml 05/19/19 22:00 05/20/19 10:19 Sodium Chloride Flush Syringe 10 Ml IV 10 ml BID ALBIN Administration Sodium Chloride 10 ml 05/19/19 20:29 Sodium Chloride Flush Syringe 10 Ml IV PRN PRN LINE FLUSH Nutrition/Malnutrition Assess - Dietary Evaluation Nutrition/Malnutrition Findings: Nutrition Notes Start: 05/20/19 10:28 Freq: Status: Active Protocol: Document 05/20/19 10:29 CT (Rec: 05/20/19 10:44 CT [id number]) Co-Sign 05/20/19 10:29 LP Nutrition Notes Need for Assessment generated from: brake adjuster Initial or Follow up Assessment Current Diagnosis CKD(stage I-IV),Diabetes, Hypertension,Heart Failure Other Pertinent Diagnosis Tobacco dependence, Pulmonary edema, SIRS Current Diet NPO Labs/Tests K 5.7 Cl 108.2 BUN 73 Creatinine 3.1 Glu 130 Pertinent Medications Lasix Solumedrol Humalin Height 6 ft 3 in Weight 111 kg Usual Body Weight 97.522 kg [place] Body Weight (kg) 89.09 BMI 30.6 Intake Prior to Admission Good Weight Status Obese Subjective/Other Information Consult for skin risk of 18. Pt was looking around and seemed confused at time of visit. Pt stated that it was June, and was informed it was May. Pt states his last meal was FridayApr 18 for lunch. Pt states that he has gained weight since February. Pt is currently NPO and waiting for diet advancement from MD. Noted slight orbital wasting. Burn Absent Trauma Absent GI Symptoms None Food Allergy No Current % PO Negligible Minimum of two criteria No Body Fat Depletion Mild depletion (non-severe) #1 Nutrition Diagnosis Inadequate oral intake Etiology NPO As Evidenced by Signs and Symptoms slight orbital wasting, pt stating last meal was Friday at lunch Is patient on ventilator? No Is Patient Ambulatory and/or Out of Bed Yes REE-([facility]-ambulatory/OOB) [ 2639.819 [id number]] Kcal/Kg value to use for calculation 21 Approximate Energy Requirements Using 2331 kcal/Kg Calculation Used for Recommendations Kcal/kg Additional Notes Protein needs: 80-90 g/kg/day (0.8-0.9 g/kg/day AdBW 100.11 kg) Fluid needs: 1 ml/kcal/day or per MD Nutrition Intervention Change Diet Order: Diet advancement when medically feasible Goal #1 Diet advancement Anticipated Discharge Needs: unable to determine at this time Follow-Up By: 05/24/19 Additional Comments Follow for diet advancement and PO intakes
[2019-05-20] MEDS ORDERED: hydrALAZINE 20 MG/1 ML INJ IV PRN (18:38)
[2019-05-20] MEDS: METOPROLOL TARTRATE 50 MG TAB PO SCH (22:04)
[2019-05-21] MEDS: IPRATROPIUM/ALBUTEROL SULFATE 3 ML AMPUL.NEB IH SCH ×4 (01:34→20:07)
[2019-05-21] MEDS: FUROSEMIDE 40 MG/4 ML INJ IV SCH ×2 (05:41→17:32)
[2019-05-21] MEDS: methylPREDNISolone Sod Succinate 40 MG/1 ML INJ IV SCH ×3 (05:41→21:34)
--- NOTE | 2019-05-21 06:54 | Ultrasound Report ---
ULTRASOUND ABDOMEN, COMPLETE INDICATION: elevated LFTs. COMPARISON: No relevant prior imaging study available. FINDINGS: Pancreas: No significant abnormality. Abdominal Aorta: No significant abnormality. IVC: No significant abnormality. Liver: No significant abnormality. Normal hepatopedal blood flow in the main portal vein. Gallbladder: At least 1 gallstone measuring up to 9 mm is identified.. Bile ducts: No significant abnormality. Common bile duct measures 5 mm. Kidneys: Right: 10.5 cm in length. Left: 11.3 cm in length. No significant abnormality. Spleen: No significant abnormality. Free fluid: None. Additional Findings: Moderate bilateral pleural effusions are partially imaged. IMPRESSION: Unremarkable sonographic appearance of the liver. Gallstone. No evidence for acute cholecystitis. Bilateral pleural effusions.. Signer Name: Andrea Hernandez Jr, MD Signed: 05/20/2019 4:08 PM Workstation Name: [id number]
[2019-05-21 07:02] LABS: Hematocrit 36.7 % (35.5-45.6); Hemoglobin 11.6 gm/dl (11.8-15.2); Mean Corpuscular HGB Conc 32 % (32-34); Mean Corpuscular Volume 74 fl (84-94); Platelet Count 221 K/mm3 (140-440); Red Blood Count 4.97 M/mm3 (3.65-5.03); Red Cell Distribution Width 17.2 % (13.2-15.2)
[2019-05-21 07:19] LABS: Alanine Aminotransferase 126 units/L (7-56); Albumin 3.8 g/dL (3.9-5); BUN/Creatinine Ratio 29; Blood Urea Nitrogen 84 mg/dL (9-20); Hemolysis Index 2
[2019-05-21 07:25] LABS: Bilirubin,Direct < 0.2 mg/dL (0-0.2)
[2019-05-21 07:26] LABS: Hepatitis B Surface Antigen Non-Reactive (Negative); Hepatitis C Virus Antibody Non-Reactive (NonReactive)
[2019-05-21] MEDS: INSULIN REGULAR, HUMAN 100 UNITS/1 ML SUB-Q SCH ×4 (07:30→17:39)
--- NOTE | 2019-05-21 08:19 | Progress Note ---
Assessment and Plan Assessment and plan: Patient is a 53-year-old -Citizen Of [place] man with a history of CKD 3, hypertension, paroxysmal atrial fibrillation, mild dilated cardiomyopathy, estimated ejection fraction 40-45% by an echocardiogram done at [facility] about one week ago, diabetes mellitus type 2 and tobacco abuse who pres ents to [facility] ED via EMS with complaints of fluid on lungs and difficulty breathing. Patient states that he was admitted to [facility] for approximately 7-8 days for "breathing issues" and was discharged yesterday on 05/18/19. He returns here with severe worsening SOB. He was hypoxic so BIPAP was started. Patient denies home O2 use. He reports that his "water pill" was discontinued, which cause him to ave fluid build up. * pCXR Impression: New-onset moderate CHF, advanced destructive emphysema right upper lobe Acute on chronic decompensated systolic heart failure: -treat with iv lasix bid, Cardiology consulted, input noted Hypertensive urgency -BP on admission 201/125 -Hx Hypertension -Continue to monitor BP -Resume home antihypertensive meds to optimize BP -IV antihypertensive when necessary Acute hypoxic Respiratory Failure -ABG on admission 7.318/36.8/199/18.9 -No baseline home oxygen requirements -CXR shows Advanced destructive emphysema right upper lobe -Weaned off BiPaP -Respiraroty treat and assess -Continue supprtive care -Continue to Monitor SIRS with organ dysfunction, poa -TMAX 96.4 -HR 93 -RR 29 -WBC 14.5K -Leukocytosis -WBC on admission 14.5 -Mild hypothermia with temperature 96.4 -Blood Cultures pending -Lactic Acid pending -Empirically on Rocephin -Continue to monitor CBC Anemia -Hemoglobin on admission 11.4 -No s/s of active bleeding -Continue to monitor hemoglobin -Transfuse as needed KRYS, vasomotor nephropathy, poa -Cr on admission 3.3 -Hx of CDK3 GFR 24 -Avoid nephrotoxic agents -Renal dose all meds -Nephrology consulted Elevated LFTs -AST 45, ALT 226 -GI Consulted DM -POC BG monitoring -SSI coverage prn -HgbA1C pending Tobacco abuse -Current every day smoker -Counseled for cessation -Nicotine patch when necessary DVT PPX -On Heparin History Interval history: Patient was seen and examined. Follow-up on current diagnosis of CHF, still sob but better, off bipap on 4 liters this morning. No overnight events reported to me. Patient denies any chest pain, shortness breath, nausea/vomiting or severe headaches. Imaging, nursing note, chart, labs and old chart reviewed. Discussed with patient. Hospitalist Physical - Physical exam Narrative exam: Gen: ill appearing, mild increase accessory muscle usage, Awake, Alert, Orientated HEENT: NCAT, EOMI, PERRL, OP Clear Neck: supple, no adenopathy, no thyromegaly, JVD CVS/Heart: RRR, normal S1S2, pulses present bilaterally Chest/Lungs: diminished with bibasilar crackles, Symmetrical chest expansion, good air entry bilaterally GI/Abdomen: soft, NTND, good bowel sounds, no guarding or rebound /Bladder: no suprapubic tenderness, no CVA or paraspinal tenderness Extermity/Skin: leg pre-tibial edema MSK: FROM x 4 Neuro: CN 2-12 grossly intact, no new focal deficits Psych: calm - Constitutional Vitals: Temp Pulse Resp BP Pulse Ox 98.0 F 87 20 156/99 95 05/21/19 04:52 05/21/19 04:52 05/21/19 04:52 05/21/19 04:52 05/21/19 04:52 General appearance: Present: no acute distress Results - Labs CBC & Chem 7: 05/21/19 05:23 05/21/19 05:23 Labs: Laboratory Last Values WBC 11.4 K/mm3 (4.5-11.0) H 05/21/19 05:23 RBC 4.97 M/mm3 (3.65-5.03) 05/21/19 05:23 Hgb 11.6 gm/dl (11.8-15.2) L 05/21/19 05:23 Hct 36.7 % (35.5-45.6) 05/21/19 05:23 MCV 74 fl (84-94) L 05/21/19 05:23 MCH 23 pg (28-32) L 05/21/19 05:23 MCHC 32 % (32-34) 05/21/19 05:23 RDW 17.2 % (13.2-15.2) H 05/21/19 05:23 Plt Count 221 K/mm3 (140-440) 05/21/19 05:23 Add Manual Diff Complete 05/20/19 04:40 Total Counted 100 05/20/19 04:40 Seg Neutrophils % 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 Forming 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 Operator 05/20/19 04:40 Seg Neuts % (Manual) 94.0 % (40.0-70.0) H 05/20/19 04:40 Band Neutrophils % 0 % 05/20/19 04:40 Lymphocytes % (Manual) 6.0 % (13.4-35.0) L 05/20/19 04:40 Reactive Lymphs % (Man) 0 % 05/20/19 04:40 Monocytes % (Manual) 0 % (0.0-7.3) 05/20/19 04:40 Eosinophils % (Manual) 0 % (0.0-4.3) 05/20/19 04:40 Basophils % (Manual) 0 % (0.0-1.8) 05/20/19 04:40 Metamyelocytes % 0 % 05/20/19 04:40 Myelocytes % 0 % 05/20/19 04:40 Promyelocytes % 0 % 05/20/19 04:40 Blast Cells % 0 % 05/20/19 04:40 Nucleated RBC % Not Reportable 05/20/19 04:40 Seg Neutrophils # Man 7.6 K/mm3 (1.8-7.7) 05/20/19 04:40 Band Neutrophils # 0.0 K/mm3 05/20/19 04:40 Lymphocytes # (Manual) 0.5 K/mm3 (1.2-5.4) L 05/20/19 04:40 Abs React Lymphs (Man) 0.0 K/mm3 05/20/19 04:40 Monocytes # (Manual) 0.0 K/mm3 (0.0-0.8) 05/20/19 04:40 Eosinophils # (Manual) 0.0 K/mm3 (0.0-0.4) 05/20/19 04:40 Basophils # (Manual) 0.0 K/mm3 (0.0-0.1) 05/20/19 04:40 Metamyelocytes # 0.0 K/mm3 05/20/19 04:40 Myelocytes # 0.0 K/mm3 05/20/19 04:40 Promyelocytes # 0.0 K/mm3 05/20/19 04:40 Blast Cells # 0.0 K/mm3 05/20/19 04:40 WBC Morphology Not Reportable 05/20/19 04:40 Hypersegmented Neuts Not Reportable 05/20/19 04:40 Hyposegmented Neuts Not Reportable 05/20/19 04:40 Hypogranular Neuts Not Reportable 05/20/19 04:40 Smudge Cells Not Reportable 05/20/19 04:40 Toxic Granulation Not Reportable 05/20/19 04:40 Toxic Vacuolation Not Reportable 05/20/19 04:40 Dohle Bodies Not Reportable 05/20/19 04:40 Pelger-Huet Anomaly Not Reportable 05/20/19 04:40 Anamaria Rods Not Reportable 05/20/19 04:40 Platelet Estimate Consistent w auto 05/20/19 04:40 Clumped Platelets Not Reportable 05/20/19 04:40 Plt Clumps, EDTA Not Reportable 05/20/19 04:40 Large Platelets Not Reportable 05/20/19 04:40 Giant Platelets Not Reportable 05/20/19 04:40 Platelet Satelliting Not Reportable 05/20/19 04:40 Plt Morphology Comment Not Reportable 05/20/19 04:40 RBC Morphology Not Reportable 05/20/19 04:40 Dimorphic RBCs Not Reportable 05/20/19 04:40 Polychromasia Not Reportable 05/20/19 04:40 Hypochromasia Not Reportable 05/20/19 04:40 Poikilocytosis Not Reportable 05/20/19 04:40 Anisocytosis 1+ 05/20/19 04:40 Microcytosis Not Reportable 05/20/19 04:40 Macrocytosis Not Reportable 05/20/19 04:40 Spherocytes Not Reportable 05/20/19 04:40 Pappenheimer Bodies Not Reportable 05/20/19 04:40 Sickle Cells Not Reportable 05/20/19 04:40 Target Cells Not Reportable 05/20/19 04:40 Tear Drop Cells Not Reportable 05/20/19 04:40 Ovalocytes Not Reportable 05/20/19 04:40 Helmet Cells Not Reportable 05/20/19 04:40 [place] Bodies Not Reportable 05/20/19 04:40 [place] Rings Not Reportable 05/20/19 04:40 Jg Cells Not Reportable 05/20/19 04:40 Bite Cells Not Reportable 05/20/19 04:40 Crenated Cell Not Reportable 05/20/19 04:40 Elliptocytes Not Reportable 05/20/19 04:40 Acanthocytes (Spur) Not Reportable 05/20/19 04:40 Rouleaux Not Reportable 05/20/19 04:40 Hemoglobin C Crystals Not Reportable 05/20/19 04:40 Schistocytes Not Reportable 05/20/19 04:40 Malaria parasites Not Reportable 05/20/19 04:40 Demond Bodies Not Reportable 05/20/19 04:40 Hem Pathologist Commnt No 05/20/19 04:40 PT 29.7 Sec. (12.2-14.9) H 05/19/19 17:41 INR 2.90 (0.87-1.13) H 05/19/19 17:41 APTT 38.2 Sec. (24.2-36.6) H 05/19/19 17:41 POC ABG pH 7.318 (7.35-7.45) L 05/19/19 19:12 POC ABG pCO2 36.8 (35-45) 05/19/19 19:12 POC ABG pO2 199 (80-105) H 05/19/19 19:12 POC ABG HCO3 18.9 (22-26 mml/L) 05/19/19 19:12 POC ABG Total CO2 20 (23-27mmol/L) 05/19/19 19:12 POC ABG O2 Sat 100 05/19/19 19:12 POC ABG Base Excess -7 ((-2) - (+3)mmol/L) 05/19/19 19:12 FiO2 60 % 05/19/19 19:12 Sodium 142 mmol/L (137-145) 05/21/19 05:23 Potassium 4.7 mmol/L (3.6-5.0) 05/21/19 05:23 Chloride 102.4 mmol/L (98-107) 05/21/19 05:23 Carbon Dioxide 20 mmol/L (22-30) L 05/21/19 05:23 Anion Gap 24 mmol/L 05/21/19 05:23 BUN 84 mg/dL (9-20) H 05/21/19 05:23 Creatinine 2.9 mg/dL (0.8-1.5) H 05/21/19 05:23 Estimated GFR 27 ml/min 05/21/19 05:23 BUN/Creatinine Ratio 29 % 05/21/19 05:23 Glucose 129 mg/dL (75-100) H 05/21/19 05:23 POC Glucose 122 (70-105) H 05/20/19 22:50 Hemoglobin A1c 6.1 % (4-6) H 05/20/19 04:40 Lactic Acid 1.50 mmol/L (0.7-2.0) 05/19/19 21:58 Calcium 9.0 mg/dL (8.4-10.2) 05/21/19 05:23 Magnesium 2.00 mg/dL (1.7-2.3) 05/21/19 05:23 Total Bilirubin 0.30 mg/dL (0.1-1.2) 05/21/19 05:23 Direct Bilirubin < 0.2 mg/dL (0-0.2) 05/21/19 05:23 Indirect Bilirubin 0.1 mg/dL 05/21/19 05:23 AST 13 units/L (5-40) 05/21/19 05:23 ALT 126 units/L (7-56) H 05/21/19 05:23 Alkaline Phosphatase 199 units/L (35-129) H 05/21/19 05:23 Total Creatine Kinase 63 units/L (55-170) 05/19/19 17:41 Troponin T 0.023 ng/mL (0.00-0.029) 05/19/19 17:41 Total Protein 6.0 g/dL (6.3-8.2) L 05/21/19 05:23 Albumin 3.8 g/dL (3.9-5) L 05/21/19 05:23 Albumin/Globulin Ratio 1.7 % 05/21/19 05:23 Urine Color Yellow (Yellow) 05/19/19 Unknown Urine Turbidity Clear (Clear) 05/19/19 Unknown Urine pH 5.0 (5.0-7.0) 05/19/19 Unknown Ur Specific Ethel 1.013 (1.003-1.030) 05/19/19 Unknown Urine Protein 100 mg/dl mg/dL (Negative) 05/19/19 Unknown Urine Glucose (UA) Neg mg/dL (Negative) 05/19/19 Unknown Urine Ketones Neg mg/dL (Negative) 05/19/19 Unknown Urine Blood Neg (Negative) 05/19/19 Unknown Urine Nitrite Neg (Negative) 05/19/19 Unknown Urine Bilirubin Neg (Negative) 05/19/19 Unknown Urine Urobilinogen < 2.0 mg/dL (<2.0) 05/19/19 Unknown Ur Leukocyte Esterase Neg (Negative) 05/19/19 Unknown Urine WBC (Auto) 5.0 /HPF (0.0-6.0) 05/19/19 Unknown Urine RBC (Auto) 4.0 /HPF (0.0-6.0) 05/19/19 Unknown U Epithel Cells (Auto) < 1.0 /HPF (0-13.0) 05/19/19 Unknown Urine Yeast (Budding) Few /HPF 05/19/19 Unknown Hepatitis A IgM Ab Non-reactive (NonReactive) 05/21/19 05:23 Hep Bs Antigen Non-reactive (Negative) 05/21/19 05:23 Hep B Core IgM Ab Non-reactive (NonReactive) 05/21/19 05:23 Hepatitis C Antibody Non-reactive (NonReactive) 05/21/19 05:23 Active Medications - Current Medications Current Medications: Generic Name Dose Route Start Last Admin Trade Name Freq PRN Reason Stop Dose Admin Acetaminophen 650 mg 05/19/19 20:29 Tylenol PO Q4H PRN Pain MILD(1-3)/Fever >100.5/LUA Albuterol 2.5 mg 05/19/19 20:29 Proventil IH Q3HRT PRN Shortness Of Breath Albuterol/Ipratropium 1 ampul 05/20/19 02:00 05/21/19 08:02 Duoneb *Not For Prn Use* IH 1 ampul Q6HRT ALBIN Administration Atorvastatin Calcium 20 mg 05/19/19 22:00 05/20/19 22:04 Lipitor PO 20 mg QHS ALBIN Administration Dextrose 0 ml 05/19/19 22:06 D50w (25gm) Syringe IV Q30MIN PRN Hypoglycemia Protocol Docusate Sodium 100 mg 05/19/19 22:00 05/20/19 22:03 Colace PO 100 mg BID ALBIN Administration Furosemide 40 mg 05/20/19 06:00 05/21/19 05:41 Lasix IV 40 mg 0600,1800 ALBIN Administration Heparin Sodium (Porcine) 5,000 unit 05/19/19 22:00 05/20/19 22:04 Heparin SUB-Q 5,000 unit Q12HR ALBIN Administration Hydralazine HCl 10 mg 05/19/19 20:54 05/20/19 18:19 Apresoline IV 10 mg Q4H PRN Administration Blood Pressure Hydralazine HCl 10 mg 05/20/19 18:38 Apresoline IV Q4HR PRN Blood Pressure Ceftriaxone Sodium 1 gm in 50 mls @ 100 mls/hr 05/19/19 21:00 05/20/19 10:17 Rocephin/Ns 1 Gm/50 Ml IV 100 mls/hr Q24HR ALBIN Administration Protocol Insulin Human Regular 0 units 05/20/19 00:00 05/21/19 07:30 Humulin R SUB-Q Not Given Q6HR [facility] Protocol Labetalol HCl 10 mg 05/20/19 18:38 Labetalol IV Q4H PRN SBP=>180 Methylprednisolone Sodium Succinate 60 mg 05/19/19 22:00 05/21/19 05:41 Solu-Medrol IV 60 mg Q8HR ALBIN Administration Metoprolol Tartrate 50 mg 05/20/19 22:00 05/20/19 22:04 Metoprolol PO 50 mg BID ALBIN Administration Nicotine 14 mg 05/20/19 10:00 05/20/19 10:17 Habitrol TD Not Given QDAY ALBIN Nifedipine 90 mg 05/20/19 15:00 05/20/19 18:18 Procardia Xl PO 90 mg QDAY ALBIN Administration Ondansetron HCl 4 mg 05/19/19 20:29 Zofran IV Q8H PRN Nausea And Vomiting Sodium Bicarbonate 650 mg 05/20/19 14:00 05/20/19 20:11 Sodium Bicarbonate PO 650 mg TID ALBIN Administration Sodium Chloride 10 ml 05/19/19 22:00 05/20/19 22:04 Sodium Chloride Flush Syringe 10 Ml IV 10 ml BID ALBIN Administration Sodium Chloride 10 ml 05/19/19 20:29 Sodium Chloride Flush Syringe 10 Ml IV PRN PRN LINE FLUSH Nutrition/Malnutrition Assess - Dietary Evaluation Nutrition/Malnutrition Findings: Nutrition Notes Start: 05/20/19 10:28 Freq: Status: Active Protocol: Document 05/20/19 10:29 CT (Rec: 05/20/19 10:44 CT [id number]) Co-Sign 05/20/19 10:29 LP Nutrition Notes 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 Pt was looking around and seemed confused at time of visit. Pt stated that it was June, and was informed it was May. Pt states his last meal was FridayApr 18 for lunch. Pt states that he has gained weight since February. Pt is currently NPO and waiting for diet advancement from MD. Noted slight orbital wasting. Burn Absent Trauma Absent GI Symptoms None Food Allergy No Current % PO Negligible Minimum of two criteria No Body Fat Depletion Mild depletion (non-severe) #1 Nutrition Diagnosis Inadequate oral intake Etiology NPO As Evidenced by Signs and Symptoms slight orbital wasting, pt stating last meal was Friday at lunch Is patient on ventilator? No Is Patient Ambulatory and/or Out of Bed Yes REE-([place]-ambulatory/OOB) [ 2639.819 [id number]] Kcal/Kg value to use for calculation 21 Approximate Energy Requirements Using 2331 kcal/Kg Calculation Used for Recommendations Kcal/kg Additional Notes Protein needs: 80-90 g/kg/day (0.8-0.9 g/kg/day AdBW 100.11 kg) Fluid needs: 1 ml/kcal/day or per MD Nutrition Intervention Change Diet Order: Diet advancement when medically feasible Goal #1 Diet advancement Anticipated Discharge Needs: unable to determine at this time Follow-Up By: 05/24/19 Additional Comments Follow for diet advancement and PO intakes
[2019-05-21] MEDS: SODIUM BICARBONATE 650 MG TAB PO SCH ×3 (08:32→21:33)
--- NOTE | 2019-05-21 10:04 | Progress Note ---
Assessment and Plan Acute pulmonary edema Severe uncontrolled hypertension Mild Dilated cardiomyopathy EF 40-45% by echo at [facility] 04/2019 Paroxysmal Afib on warfarin for oral anticoagulation. INR 2.9 on presentation Chronic renal disease Hyperkalemia Elevated LFTs -resolved Hx of right upper lung mass Recommendations: Aggressive blood pressure control. Continue therapy for heart failure and paroxysmal atrial fibrillation. Ischemic cardiac evaluation with a stress thallium test will be will be done prior to discharge. Subjective Date of service: 05/21/19 Interval history: Patient has no complaints. He reports his breathing is better. Admits he is diuresing well. Blood pressure is currently 156/99. Objective Vital Signs Temp Pulse Pulse Pulse Resp Resp BP 05/21/19 08:00 94 H 05/21/19 04:52 98.0 F 87 20 156/99 05/21/19 01:36 92 H 18 05/21/19 00:23 97.4 F L 82 18 146/83 05/21/19 00:00 65 31 H 104/70 05/20/19 23:50 74 35 H 118/69 05/20/19 23:40 74 20 118/69 05/20/19 23:30 72 22 118/69 05/20/19 23:20 70 20 118/69 05/20/19 23:10 72 14 118/69 05/20/19 23:00 75 21 118/69 05/20/19 22:56 75 18 120/71 05/20/19 22:50 74 19 120/71 05/20/19 22:44 152/81 05/20/19 21:49 98.2 F 94 H 20 169/101 05/20/19 21:36 91 H 18 05/20/19 21:35 74 05/20/19 21:10 91 H 14 152/81 05/20/19 21:00 92 H 15 152/81 05/20/19 20:50 90 20 162/99 05/20/19 20:40 92 H 26 H 162/99 05/20/19 20:30 88 19 162/99 05/20/19 20:20 90 18 171/100 05/20/19 20:00 98.1 F 91 H 92 H 21 171/100 05/20/19 19:00 100 H 23 160/96 05/20/19 18:19 92 H 185/111 05/20/19 18:00 96 H 15 175/106 05/20/19 17:00 87 19 175/106 05/20/19 16:00 84 87 15 158/94 05/20/19 15:00 86 21 171/105 05/20/19 14:53 173/108 05/20/19 13:46 86 18 05/20/19 13:00 87 14 166/107 05/20/19 12:00 97.4 F L 86 83 18 167/103 05/20/19 11:00 88 23 173/112 05/20/19 10:18 90 174/100 Pulse Ox 05/21/19 08:00 05/21/19 04:52 95 05/21/19 01:36 05/21/19 00:23 92 05/21/19 00:00 90 05/20/19 23:50 93 05/20/19 23:40 96 05/20/19 23:30 94 05/20/19 23:20 97 05/20/19 23:10 97 05/20/19 23:00 95 05/20/19 22:56 96 05/20/19 22:50 96 05/20/19 22:44 05/20/19 21:49 94 05/20/19 21:36 05/20/19 21:35 05/20/19 21:10 98 05/20/19 21:00 91 05/20/19 20:50 94 05/20/19 20:40 95 05/20/19 20:30 94 05/20/19 20:20 97 05/20/19 20:00 93 05/20/19 19:00 92 05/20/19 18:19 05/20/19 18:00 97 05/20/19 17:00 89 05/20/19 16:00 92 05/20/19 15:00 91 05/20/19 14:53 93 05/20/19 13:46 05/20/19 13:00 93 05/20/19 12:00 92 05/20/19 11:00 90 05/20/19 10:18 - Physical Examination HEENT: Positive: PERRL Neck: Positive: trachea midline Neuro: Positive: Grossly Intact - Labs and Meds Cardiac Enzymes 05/21/19 Range/Units 05:23 AST 13 (5-40) units/L CBC 05/21/19 Range/Units 05:23 WBC 11.4 H (4.5-11.0) K/mm3 RBC 4.97 (3.65-5.03) M/mm3 Hgb 11.6 L (11.8-15.2) gm/dl Hct 36.7 (35.5-45.6) % Plt Count 221 (140-440) K/mm3 Comprehensive Metabolic Panel 05/21/19 Range/Units 05:23 Sodium 142 (137-145) mmol/L Potassium 4.7 (3.6-5.0) mmol/L Chloride 102.4 (98-107) mmol/L Carbon Dioxide 20 L (22-30) mmol/L BUN 84 H (9-20) mg/dL Creatinine 2.9 H (0.8-1.5) mg/dL Glucose 129 H (75-100) mg/dL Calcium 9.0 (8.4-10.2) mg/dL Direct Bilirubin < 0.2 (0-0.2) mg/dL Indirect Bilirubin 0.1 mg/dL AST 13 (5-40) units/L ALT 126 H (7-56) units/L Alkaline Phosphatase 199 H (35-129) units/L Total Protein 6.0 L (6.3-8.2) g/dL Albumin 3.8 L (3.9-5) g/dL
--- NOTE | 2019-05-21 10:54 | Gastroenterology Progress Note ---
<KENYA ARGUELLES - Last Filed: 05/21/19 10:48> Assessment and Plan 1.elevated LFTs -plt WNL -INR 2.90 (on warfarin) -KATELYN pending -abd U/S showed liver normal with patent portal vein, along with gallstone in gallbladder -acute hepatitis panel negative -etiology-likely 2/2 congestion -clinically, patient is w/o GI complaints with LFTs now improving. -avoid hepatotoxic agents -continue to trend labs and supportive care -no further workup recommended per GI standpoint at this time -patient to f/u upon discharge to insure LFTs return to normal, if remain elevated further workup as outpatient -will sign off, please call if needed Subjective Date of service: 05/21/19 Principal diagnosis: elevated LFTs Interval history: No acute distress or GI complaints. Reports SOB is improved. Denies abd pain or N/V. Tolerating diet. Objective - Constitutional Vitals: Temp Pulse Resp BP Pulse Ox 98.0 F 94 H 20 156/99 95 05/21/19 04:52 05/21/19 08:00 05/21/19 04:52 05/21/19 04:52 05/21/19 04:52 General appearance: no acute distress - Respiratory Respiratory effort: normal Respiratory: bilateral: diminished - Cardiovascular Rhythm: regular - Gastrointestinal General gastrointestinal: Present: soft, non-tender, non-distended, normal bowel sounds - Integumentary Integumentary: Present: warm, dry - Neurologic Neurological: alert and oriented x3 - Labs CBC & Chem 7: 05/21/19 05:23 05/21/19 05:23 Labs: Laboratory Results - last 24 hr 05/20/19 05/20/19 05/20/19 04:40 11:24 16:55 WBC RBC Hgb Hct MCV MCH MCHC RDW Plt Count Sodium Potassium Chloride Carbon Dioxide Anion Gap BUN Creatinine Estimated GFR BUN/Creatinine Ratio Glucose POC Glucose 110 H 123 H Hemoglobin A1c 6.1 H Calcium Magnesium Total Bilirubin Direct Bilirubin Indirect Bilirubin AST ALT Alkaline Phosphatase Total Protein Albumin Albumin/Globulin Ratio Hepatitis A IgM Ab Hep Bs Antigen Hep B Core IgM Ab Hepatitis C Antibody 05/20/19 05/21/19 05/21/19 22:50 05:23 05:23 WBC RBC Hgb Hct MCV MCH MCHC RDW Plt Count Sodium 142 Potassium 4.7 Chloride 102.4 Carbon Dioxide 20 L Anion Gap 24 BUN 84 H Creatinine 2.9 H Estimated GFR 27 BUN/Creatinine Ratio 29 Glucose 129 H POC Glucose 122 H Hemoglobin A1c Calcium 9.0 Magnesium 2.00 Total Bilirubin 0.30 Direct Bilirubin < 0.2 Indirect Bilirubin 0.1 AST 13 ALT 126 H Alkaline Phosphatase 199 H Total Protein 6.0 L Albumin 3.8 L Albumin/Globulin Ratio 1.7 Hepatitis A IgM Ab Non-reactive Hep Bs Antigen Non-reactive Hep B Core IgM Ab Non-reactive Hepatitis C Antibody Non-reactive 05/21/19 05/21/19 05:23 09:08 WBC 11.4 H RBC 4.97 Hgb 11.6 L Hct 36.7 MCV 74 L MCH 23 L MCHC 32 RDW 17.2 H Plt Count 221 Sodium Potassium Chloride Carbon Dioxide Anion Gap BUN Creatinine Estimated GFR BUN/Creatinine Ratio Glucose POC Glucose 163 H Hemoglobin A1c Calcium Magnesium Total Bilirubin Direct Bilirubin Indirect Bilirubin AST ALT Alkaline Phosphatase Total Protein Albumin Albumin/Globulin Ratio Hepatitis A IgM Ab Hep Bs Antigen Hep B Core IgM Ab Hepatitis C Antibody <BALBIR MORSE R - Last Filed: 05/21/19 12:37> Assessment and Plan Pt doing better. LFTs improving, and hepatitis panel negative. U/S shows normal liver and asymptomatic gallstone. Pt has chronic microcytosis, and anemia - likely due to CRF. Will send off iron studies. However, will sign off. Pt needs outpatient colonoscopy and was so advised. Needs to f/u as outpatient in office. Objective - Constitutional Vitals: Temp Pulse Resp BP Pulse Ox 98.0 F 88 18 153/87 97 05/21/19 04:52 05/21/19 11:07 05/21/19 08:02 05/21/19 11:07 05/21/19 08:02 - Labs CBC & Chem 7: 05/21/19 05:23 05/21/19 05:23 Labs: Laboratory Results - last 24 hr 05/20/19 05/20/19 05/20/19 04:40 16:55 22:50 WBC RBC Hgb Hct MCV MCH MCHC RDW Plt Count Sodium Potassium Chloride Carbon Dioxide Anion Gap BUN Creatinine Estimated GFR BUN/Creatinine Ratio Glucose POC Glucose 123 H 122 H Hemoglobin A1c 6.1 H Calcium Magnesium Total Bilirubin Direct Bilirubin Indirect Bilirubin AST ALT Alkaline Phosphatase Total Protein Albumin Albumin/Globulin Ratio Hepatitis A IgM Ab Hep Bs Antigen Hep B Core IgM Ab Hepatitis C Antibody 05/21/19 05/21/19 05/21/19 05:23 05:23 05:23 WBC 11.4 H RBC 4.97 Hgb 11.6 L Hct 36.7 MCV 74 L MCH 23 L MCHC 32 RDW 17.2 H Plt Count 221 Sodium 142 Potassium 4.7 Chloride 102.4 Carbon Dioxide 20 L Anion Gap 24 BUN 84 H Creatinine 2.9 H Estimated GFR 27 BUN/Creatinine Ratio 29 Glucose 129 H POC Glucose Hemoglobin A1c Calcium 9.0 Magnesium 2.00 Total Bilirubin 0.30 Direct Bilirubin < 0.2 Indirect Bilirubin 0.1 AST 13 ALT 126 H Alkaline Phosphatase 199 H Total Protein 6.0 L Albumin 3.8 L Albumin/Globulin Ratio 1.7 Hepatitis A IgM Ab Non-reactive Hep Bs Antigen Non-reactive Hep B Core IgM Ab Non-reactive Hepatitis C Antibody Non-reactive 05/21/19 05/21/19 09:08 11:57 WBC RBC Hgb Hct MCV MCH MCHC RDW Plt Count Sodium Potassium Chloride Carbon Dioxide Anion Gap BUN Creatinine Estimated GFR BUN/Creatinine Ratio Glucose POC Glucose 163 H 154 H Hemoglobin A1c Calcium Magnesium Total Bilirubin Direct Bilirubin Indirect Bilirubin AST ALT Alkaline Phosphatase Total Protein Albumin Albumin/Globulin Ratio Hepatitis A IgM Ab Hep Bs Antigen Hep B Core IgM Ab Hepatitis C Antibody
[2019-05-21] MEDS: NIFEdipine XL 90 MG TAB PO SCH (11:06)
[2019-05-21] MEDS: DOCUSATE SODIUM 100 MG CAP PO SCH ×2 (11:06→21:32)
[2019-05-21] MEDS: NICOTINE 14 MG/24 HR PATCH TD SCH (11:06)
[2019-05-21] MEDS: METOPROLOL TARTRATE 50 MG TAB PO SCH ×2 (11:07→21:33)
[2019-05-21] MEDS: HEPARIN 5,000 UNIT/1 ML VIAL SUB-Q SCH (11:08)
[2019-05-21] MEDS: cefTRIAXone/NS 1 GM/50 ML 1 GM/50 ML BAG IV SCH (11:28)
[2019-05-21 13:49] LABS: INR 2.62 (0.87-1.13)
--- NOTE | 2019-05-21 16:51 | Progress Note ---
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 SCr 3.8mg/dL on May 18 2019 * Acute hypoxic respiratory failure * Acute on chronic systolic heart failure --TTE: LV normal size. Moderate concentric LV hypertrophy. Mild global LV hypokinesis. LVEF is 41%. EF 40 - 45%. LVEF mildly decreased (May 11 2019) * Pulmonary edema * Hypekalemia * Atrial fibrillation * Hypertension * Hx of alcohol abuse * Hx of right upper lung mass * Tobacco abuse Plan: * Renal function is now at baseline * Continue IV diuresis * Continue po Na Bicarb * Continue antiHTN medications * Rate control and anticoagulation per cardiology * Dose medications for renal function * Avoid potential nephrotoxins * AM labs Subjective Date of service: 05/21/19 Principal diagnosis: elevated LFTs Interval history: Patient report SOB improved. Objective - Vital Signs Vital signs: Vital Signs - 12hr 05/21/19 05/21/19 05/21/19 04:52 08:00 08:02 Temperature 98.0 F Pulse Rate 87 94 H Pulse Rate [ 80 Anterior Throughout] Respiratory 20 Rate Respiratory 18 Rate [Anterior Throughout] Blood Pressure 156/99 O2 Sat by Pulse 95 97 Oximetry 05/21/19 05/21/19 11:07 13:46 Temperature Pulse Rate 88 Pulse Rate [ 84 Anterior Throughout] Respiratory Rate Respiratory 18 Rate [Anterior Throughout] Blood Pressure 153/87 O2 Sat by Pulse Oximetry - General Appearance General appearance: well-developed, well-nourished EENT: ATNC Respiratory: Present: Other (faint inspiratory crackles) Cardiology: regular, S1S2 Gastrointestinal: normal, no tenderness, no distended Integumentary: no rash, warm and dry Neurologic: no focal deficit Psychiatric: cooperative - Lab 05/21/19 05:23 05/21/19 05:23 Most recent lab results Calcium 9.0 mg/dL (8.4-10.2) 05/21/19 05:23 Magnesium 2.00 mg/dL (1.7-2.3) 05/21/19 05:23 Medications & Allergies - Medications Allergies/Adverse Reactions: Allergies No Known Allergies Allergy (Verified 05/19/19 17:17) Home Medications: Home Medications Medication Instructions Recorded Confirmed Last Taken Type Acetaminophen [Acetaminophen TAB] 325 mg PO Q4H PRN #30 tablet 11/19/17 05/20/19 Unknown Rx Ascorbic Acid [Vitamin C] 250 mg PO DAILY #30 11/19/17 05/20/19 Unknown Rx AtorvaSTATin [Lipitor] 20 mg PO QHS #30 tablet 11/19/17 05/20/19 Unknown Rx Carvedilol [Coreg] 25 mg PO BID #60 tablet 11/19/17 05/20/19 Unknown Rx amLODIPine 10 mg PO DAILY #30 tablet 11/19/17 05/20/19 Unknown Rx cloNIDine [Catapres] 0.1 mg PO TID #90 tablet 11/19/17 05/20/19 Unknown Rx hydrALAZINE [Apresoline TAB] 50 mg PO QID #120 tablet 11/19/17 05/20/19 Unknown Rx Active Medications: Generic Name Dose Route Start Last Admin Trade Name Freq PRN Reason Stop Dose Admin Acetaminophen 650 mg 05/19/19 20:29 Tylenol PO Q4H PRN Pain MILD(1-3)/Fever >100.5/LUA Albuterol 2.5 mg 05/19/19 20:29 Proventil IH Q3HRT PRN Shortness Of Breath Albuterol/Ipratropium 1 ampul 05/20/19 02:00 05/21/19 13:46 Duoneb *Not For Prn Use* IH 1 ampul Q6HRT ALBIN Administration Atorvastatin Calcium 20 mg 05/19/19 22:00 05/20/19 22:04 Lipitor PO 20 mg QHS ALBIN Administration Dextrose 0 ml 05/19/19 22:06 D50w (25gm) Syringe IV Q30MIN PRN Hypoglycemia Protocol Docusate Sodium 100 mg 05/19/19 22:00 05/21/19 11:06 Colace PO 100 mg BID ALBIN Administration Furosemide 40 mg 05/20/19 06:00 05/21/19 05:41 Lasix IV 40 mg 0600,1800 ALBIN Administration Hydralazine HCl 10 mg 05/19/19 20:54 05/20/19 18:19 Apresoline IV 10 mg Q4H PRN Administration Blood Pressure Hydralazine HCl 10 mg 05/20/19 18:38 Apresoline IV Q4HR PRN Blood Pressure Ceftriaxone Sodium 1 gm in 50 mls @ 100 mls/hr 05/19/19 21:00 05/21/19 11:28 Rocephin/Ns 1 Gm/50 Ml IV 100 mls/hr Q24HR [facility] Administration Protocol Insulin Human Regular 0 units 05/20/19 00:00 05/21/19 13:25 Humulin R SUB-Q 2 units Q6HR ALBIN Administration Protocol Labetalol HCl 10 mg 05/20/19 18:38 Labetalol IV Q4H PRN SBP=>180 Methylprednisolone Sodium Succinate 60 mg 05/19/19 22:00 05/21/19 13:26 Solu-Medrol IV 60 mg Q8HR [facility] Administration Metoprolol Tartrate 50 mg 05/20/19 22:00 05/21/19 11:07 Metoprolol PO 50 mg BID [facility] Administration Nicotine 14 mg 05/20/19 10:00 05/21/19 11:06 Habitrol TD Not Given QDAY [facility] Nifedipine 90 mg 05/20/19 15:00 05/21/19 11:06 Procardia Xl PO 90 mg QDAY [facility] Administration Ondansetron HCl 4 mg 05/19/19 20:29 Zofran IV Q8H PRN Nausea And Vomiting Sodium Bicarbonate 650 mg 05/20/19 14:00 05/21/19 13:26 Sodium Bicarbonate PO 650 mg TID [facility] Administration Sodium Chloride 10 ml 05/19/19 22:00 05/21/19 11:08 Sodium Chloride Flush Syringe 10 Ml IV 10 ml BID ALBIN Administration Sodium Chloride 10 ml 05/19/19 20:29 Sodium Chloride Flush Syringe 10 Ml IV PRN PRN LINE FLUSH Warfarin Sodium 5 mg 05/21/19 17:00 Coumadin PO DAILY@1700 [facility]
[2019-05-21] MEDS ORDERED: WARFARIN 5 MG TAB PO SCH (17:00)
[2019-05-22] MEDS: INSULIN REGULAR, HUMAN 100 UNITS/1 ML SUB-Q SCH ×4 (00:55→18:48)
[2019-05-22 01:48] LABS: Iron 32 ug/dL (49-181); Total Iron Binding Capacity 356 mcg/dL (250-450)
[2019-05-22] MEDS: FUROSEMIDE 40 MG/4 ML INJ IV SCH ×2 (05:13→18:48)
[2019-05-22] MEDS: methylPREDNISolone Sod Succinate 40 MG/1 ML INJ IV SCH ×2 (05:14→13:51)
[2019-05-22 05:36] LABS: INR 2.95 (0.87-1.13)
[2019-05-22 05:51] LABS: Calcium 8.5 mg/dL (8.4-10.2)
[2019-05-22] MEDS ORDERED: REGADENOSON 0.4 MG/5 ML INJ IV ONE ×2 (08:18→08:26)
[2019-05-22] MEDS: SODIUM BICARBONATE 650 MG TAB PO SCH ×2 (08:29→13:51)
--- NOTE | 2019-05-22 10:13 | Progress Note ---
Assessment and Plan Acute pulmonary edema Severe uncontrolled hypertension Mild Dilated cardiomyopathy EF 40-45% by echo at [facility] 04/2019 Paroxysmal Afib on warfarin for oral anticoagulation. INR 2.9 on presentation Chronic renal disease Hyperkalemia Elevated LFTs -resolved Hx of right upper lung mass Recommendations: Aggressive blood pressure control. Continue therapy for heart failure and paroxysmal atrial fibrillation. Ischemic cardiac evaluation with a stress thallium test will be will be done today. Subjective Date of service: 05/22/19 Principal diagnosis: elevated LFTs Interval history: No acute events. Resting comfortably. No chest pain or SOB. Objective Vital Signs Temp Pulse Pulse Resp Resp BP BP 05/22/19 04:29 97.7 F 77 22 170/107 05/22/19 00:05 73 18 05/21/19 23:35 98.1 F 78 21 147/83 05/21/19 21:39 98.2 F 83 18 142/86 05/21/19 20:11 05/21/19 20:09 84 20 05/21/19 19:56 98.2 F 90 24 172/101 05/21/19 13:46 84 18 05/21/19 11:46 98.3 F 80 18 141/89 05/21/19 11:07 88 153/87 Pulse Ox 05/22/19 04:29 98 05/22/19 00:05 100 05/21/19 23:35 96 05/21/19 21:39 98 05/21/19 20:11 100 05/21/19 20:09 05/21/19 19:56 99 05/21/19 13:46 05/21/19 11:46 96 05/21/19 11:07 - Physical Examination HEENT: Positive: PERRL Neck: Positive: trachea midline Neuro: Positive: Grossly Intact - Labs and Meds Coagulation 05/21/19 05/22/19 Range/Units 12:48 04:19 PT 27.5 H 30.1 H (12.2-14.9) Sec. INR 2.62 H 2.95 H (0.87-1.13) Comprehensive Metabolic Panel 05/22/19 Range/Units 04:19 Sodium 139 (137-145) mmol/L Potassium 4.7 (3.6-5.0) mmol/L Chloride 103.3 (98-107) mmol/L Carbon Dioxide 22 (22-30) mmol/L BUN 76 H (9-20) mg/dL Creatinine 2.7 H (0.8-1.5) mg/dL Glucose 140 H (75-100) mg/dL Calcium 8.5 (8.4-10.2) mg/dL
[2019-05-22] MEDS: DOCUSATE SODIUM 100 MG CAP PO SCH (10:26)
[2019-05-22] MEDS: cefTRIAXone/NS 1 GM/50 ML 1 GM/50 ML BAG IV SCH (10:27)
[2019-05-22] MEDS: NICOTINE 14 MG/24 HR PATCH TD SCH (10:27)
[2019-05-22] MEDS: METOPROLOL TARTRATE 50 MG TAB PO SCH (10:27)
[2019-05-22] MEDS: NIFEdipine XL 90 MG TAB PO SCH (10:27)
--- NOTE | 2019-05-22 11:03 | Event Note ---
Date: 05/22/19 nuclear stress test complete Stress test is negative for stress induced ischemia low risk study EF 54%
[2019-05-22 12:06] VITALS: BP 149/95
--- NOTE | 2019-05-22 12:36 | Progress Note ---
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 SCr 3.8mg/dL on May 18 2019 * Acute hypoxic respiratory failure * Acute on chronic systolic heart failure --MPI: Negative for ischemia (May 22 2019) --TTE: LV normal size. Moderate concentric LV hypertrophy. Mild global LV hypokinesis. LVEF is 41%. EF 40 - 45%. LVEF mildly decreased (May 11 2019) * Pulmonary edema * Hypekalemia * Atrial fibrillation * Hypertension * Hx of alcohol abuse * Hx of right upper lung mass * Tobacco abuse Plan: * KRYS resolved. Renal function remains at baseline * Continue IV diuresis * Continue po Na Bicarb * Continue antiHTN medications * Rate control and anticoagulation per cardiology * Dose medications for renal function * Avoid potential nephrotoxins * AM labs Subjective Date of service: 05/22/19 Principal diagnosis: elevated LFTs Interval history: Patient has no complaints. Reports DUDLEY while ambulating [place] yesterday. Objective - Vital Signs Vital signs: Vital Signs - 12hr 05/22/19 05/22/19 05/22/19 04:29 08:16 08:32 Temperature 97.7 F Pulse Rate 77 Respiratory 22 Rate Blood Pressure 170/107 152/98 161/104 O2 Sat by Pulse 98 Oximetry 05/22/19 05/22/19 05/22/19 08:46 08:47 08:48 Temperature Pulse Rate Respiratory Rate Blood Pressure 151/102 155/103 148/96 O2 Sat by Pulse Oximetry 05/22/19 05/22/19 05/22/19 08:49 08:50 08:51 Temperature Pulse Rate Respiratory Rate Blood Pressure 153/94 150/94 153/98 O2 Sat by Pulse Oximetry 05/22/19 05/22/19 05/22/19 08:53 10:27 11:25 Temperature 97.8 F Pulse Rate 75 77 Respiratory 18 Rate Blood Pressure 153/91 149/98 149/95 O2 Sat by Pulse 97 Oximetry - General Appearance General appearance: well-developed, well-nourished EENT: ATNC Respiratory: Present: Decreased Breath Sounds. Absent: Rales, Ronchi, Wheezes Cardiology: regular, S1S2 Gastrointestinal: normal, no tenderness, no distended Integumentary: no rash, warm and dry Neurologic: no focal deficit, alert and oriented x3 Musculoskeletal: other (no edema) Psychiatric: cooperative - Lab 05/21/19 05:23 05/22/19 04:19 Most recent lab results Calcium 8.5 mg/dL (8.4-10.2) 05/22/19 04:19 Magnesium 2.00 mg/dL (1.7-2.3) 05/21/19 05:23 Medications & Allergies - Medications Allergies/Adverse Reactions: Allergies No Known Allergies Allergy (Verified 05/19/19 17:17) Home Medications: Home Medications Medication Instructions Recorded Confirmed Last Taken Type Acetaminophen [Acetaminophen TAB] 325 mg PO Q4H PRN #30 tablet 11/19/17 05/20/19 Unknown Rx Ascorbic Acid [Vitamin C] 250 mg PO DAILY #30 11/19/17 05/20/19 Unknown Rx AtorvaSTATin [Lipitor] 20 mg PO QHS #30 tablet 11/19/17 05/20/19 Unknown Rx Carvedilol [Coreg] 25 mg PO BID #60 tablet 11/19/17 05/20/19 Unknown Rx amLODIPine 10 mg PO DAILY #30 tablet 11/19/17 05/20/19 Unknown Rx cloNIDine [Catapres] 0.1 mg PO TID #90 tablet 11/19/17 05/20/19 Unknown Rx hydrALAZINE [Apresoline TAB] 50 mg PO QID #120 tablet 11/19/17 05/20/19 Unknown Rx Active Medications: Generic Name Dose Route Start Last Admin Trade Name Freq PRN Reason Stop Dose Admin Acetaminophen 650 mg 05/19/19 20:29 05/21/19 21:33 Tylenol PO 650 mg Q4H PRN Administration Pain MILD(1-3)/Fever >100.5/LUA Albuterol 2.5 mg 05/19/19 20:29 Proventil IH Q3HRT PRN Shortness Of Breath Albuterol/Ipratropium 1 ampul 05/22/19 08:00 Duoneb *Not For Prn Use* IH TIDRT ALBIN Atorvastatin Calcium 20 mg 05/19/19 22:00 05/21/19 21:32 Lipitor PO 20 mg QHS ALBIN Administration Dextrose 0 ml 05/19/19 22:06 D50w (25gm) Syringe IV Q30MIN PRN Hypoglycemia Protocol Docusate Sodium 100 mg 05/19/19 22:00 05/22/19 10:26 Colace PO Not Given BID ALBIN Furosemide 40 mg 05/20/19 06:00 05/22/19 05:13 Lasix IV 40 mg 0600,1800 ALBIN Administration Hydralazine HCl 10 mg 05/20/19 18:38 05/21/19 20:21 Apresoline IV 10 mg Q4HR PRN Administration Blood Pressure Ceftriaxone Sodium 1 gm in 50 mls @ 100 mls/hr 05/19/19 21:00 05/22/19 10:27 Rocephin/Ns 1 Gm/50 Ml IV 100 mls/hr Q24HR ALBIN Administration Protocol Insulin Human Regular 0 units 05/20/19 00:00 05/22/19 07:21 Humulin R SUB-Q Not Given Q6HR [facility] Protocol Labetalol HCl 10 mg 05/20/19 18:38 Labetalol IV Q4H PRN SBP=>180 Methylprednisolone Sodium Succinate 60 mg 05/19/19 22:00 05/22/19 05:14 Solu-Medrol IV 60 mg Q8HR [facility] Administration Metoprolol Tartrate 50 mg 05/20/19 22:00 05/22/19 10:27 Metoprolol PO 50 mg BID [facility] Administration Nicotine 14 mg 05/20/19 10:00 05/22/19 10:27 Habitrol TD Not Given QDAY [facility] Nifedipine 90 mg 05/20/19 15:00 05/22/19 10:27 Procardia Xl PO 90 mg QDAY [facility] Administration Ondansetron HCl 4 mg 05/19/19 20:29 Zofran IV Q8H PRN Nausea And Vomiting Sodium Bicarbonate 650 mg 05/20/19 14:00 05/22/19 08:29 Sodium Bicarbonate PO Not Given TID ALBIN Sodium Chloride 10 ml 05/19/19 22:00 05/22/19 10:28 Sodium Chloride Flush Syringe 10 Ml IV 10 ml BID ALBIN Administration Sodium Chloride 10 ml 05/19/19 20:29 Sodium Chloride Flush Syringe 10 Ml IV PRN PRN LINE FLUSH Warfarin Sodium 1 mg 05/22/19 17:00 Coumadin PO DAILY@1700 [facility]
[2019-05-22] MEDS: IPRATROPIUM/ALBUTEROL SULFATE 3 ML AMPUL.NEB IH SCH ×2 (14:22)
--- NOTE | 2019-05-22 15:56 | Progress Note ---
Assessment and Plan Assessment and plan: Patient is a 53-year-old -Beninese man with a history of CKD 3, hypertension, paroxysmal atrial fibrillation, mild dilated cardiomyopathy, estimated ejection fraction 40-45% by an echocardiogram done at [facility] about one week ago, diabetes mellitus type 2 and tobacco abuse who pres ents to PSYCHIATRIC ED via EMS with complaints of fluid on lungs and difficulty breathing. Patient states that he was admitted to [facility] for approximately 7-8 days for "breathing issues" and was discharged yesterday on 05/18/19. He returns here with severe worsening SOB. He was hypoxic so BIPAP was started. Patient denies home O2 use. He reports that his "water pill" was discontinued, which cause him to ave fluid build up. * pCXR Impression: New-onset moderate CHF, advanced destructive emphysema right upper lobe Acute on chronic decompensated systolic heart failure -treated with iv lasix bid, Cardiology consulted, input noted -stress test unremarkable Hypertensive urgency -BP on admission 201/125 -Hx Hypertension -Continue to monitor BP -Resume home antihypertensive meds to optimize BP -IV antihypertensive when necessary Acute hypoxic Respiratory Failure -ABG on admission 7.318/36.8/199/18.9 -No baseline home oxygen requirements -CXR shows Advanced destructive emphysema right upper lobe -Weaned off BiPaP -Respiraroty treat and assess -Continue supprtive care -Continue to Monitor SIRS with organ dysfunction, poa -TMAX 96.4 -HR 93 -RR 29 -WBC 14.5K -Mild hypothermia with temperature 96.4 -Blood Cultures negative -Lactic Acid pending -Empirically on Rocephin -Continue to monitor CBC Anemia , AOCD -Hemoglobin on admission 11.4 -No s/s of active bleeding -Continue to monitor hemoglobin -Transfuse as needed KRYS, vasomotor nephropathy, poa -Cr on admission 3.3 -Hx of CDK3 GFR 24 -Avoid nephrotoxic agents -Renal dose all meds -Nephrology consulted, input noted Elevated LFTs -AST 45, ALT 226 -GI Consulted, input noted DM type 2 -POC BG monitoring -SSI coverage prn -HgbA1C pending Tobacco abuse -Current every day smoker -Counseled for cessation -Nicotine patch when necessary DVT PPX -On Heparin Disposition: continue inpatient care, d/c if able to wean off O2 History Interval history: Patient was seen and examined. Follow-up on current diagnosis of CHF, still sob but better, off bipap on 4 liters this morning. No overnight events reported to me. Patient denies any chest pain, shortness breath, nausea/vomiting or severe headaches. Imaging, nursing note, chart, labs and old chart reviewed. Discussed with patient. Hospitalist Physical - Physical exam Narrative exam: Gen: ill appearing, mild increase accessory muscle usage, Awake, Alert, Orientated HEENT: NCAT, EOMI, PERRL, OP Clear Neck: supple, no adenopathy, no thyromegaly, JVD CVS/Heart: RRR, normal S1S2, pulses present bilaterally Chest/Lungs: diminished with bibasilar crackles, Symmetrical chest expansion, good air entry bilaterally GI/Abdomen: soft, NTND, good bowel sounds, no guarding or rebound /Bladder: no suprapubic tenderness, no CVA or paraspinal tenderness Extermity/Skin: leg pre-tibial edema MSK: FROM x 4 Neuro: CN 2-12 grossly intact, no new focal deficits Psych: calm - Constitutional Vitals: Temp Pulse Resp BP Pulse Ox 97.8 F 78 18 149/95 97 05/22/19 11:25 05/22/19 14:25 05/22/19 14:25 05/22/19 11:25 05/22/19 11:25 General appearance: Present: no acute distress Results - Labs CBC & Chem 7: 05/21/19 05:23 05/22/19 04:19 Labs: Laboratory Last Values WBC 11.4 K/mm3 (4.5-11.0) H 05/21/19 05:23 RBC 4.97 M/mm3 (3.65-5.03) 05/21/19 05:23 Hgb 11.6 gm/dl (11.8-15.2) L 05/21/19 05:23 Hct 36.7 % (35.5-45.6) 05/21/19 05:23 MCV 74 fl (84-94) L 05/21/19 05:23 MCH 23 pg (28-32) L 05/21/19 05:23 MCHC 32 % (32-34) 05/21/19 05:23 RDW 17.2 % (13.2-15.2) H 05/21/19 05:23 Plt Count 221 K/mm3 (140-440) 05/21/19 05:23 Add Manual Diff Complete 05/20/19 04:40 Total Counted 100 05/20/19 04:40 Seg Neutrophils % Private Duty Aide 05/20/19 04:40 Seg Neuts % (Manual) 94.0 % (40.0-70.0) H 05/20/19 04:40 Band Neutrophils % 0 % 05/20/19 04:40 Lymphocytes % (Manual) 6.0 % (13.4-35.0) L 05/20/19 04:40 Reactive Lymphs % (Man) 0 % 05/20/19 04:40 Monocytes % (Manual) 0 % (0.0-7.3) 05/20/19 04:40 Eosinophils % (Manual) 0 % (0.0-4.3) 05/20/19 04:40 Basophils % (Manual) 0 % (0.0-1.8) 05/20/19 04:40 Metamyelocytes % 0 % 05/20/19 04:40 Myelocytes % 0 % 05/20/19 04:40 Promyelocytes % 0 % 05/20/19 04:40 Blast Cells % 0 % 05/20/19 04:40 Nucleated RBC % Not Reportable 05/20/19 04:40 Seg Neutrophils # Man 7.6 K/mm3 (1.8-7.7) 05/20/19 04:40 Band Neutrophils # 0.0 K/mm3 05/20/19 04:40 Lymphocytes # (Manual) 0.5 K/mm3 (1.2-5.4) L 05/20/19 04:40 Abs React Lymphs (Man) 0.0 K/mm3 05/20/19 04:40 Monocytes # (Manual) 0.0 K/mm3 (0.0-0.8) 05/20/19 04:40 Eosinophils # (Manual) 0.0 K/mm3 (0.0-0.4) 05/20/19 04:40 Basophils # (Manual) 0.0 K/mm3 (0.0-0.1) 05/20/19 04:40 Metamyelocytes # 0.0 K/mm3 05/20/19 04:40 Myelocytes # 0.0 K/mm3 05/20/19 04:40 Promyelocytes # 0.0 K/mm3 05/20/19 04:40 Blast Cells # 0.0 K/mm3 05/20/19 04:40 WBC Morphology Not Reportable 05/20/19 04:40 Hypersegmented Neuts Not Reportable 05/20/19 04:40 Hyposegmented Neuts Not Reportable 05/20/19 04:40 Hypogranular Neuts Not Reportable 05/20/19 04:40 Smudge Cells Not Reportable 05/20/19 04:40 Toxic Granulation Not Reportable 05/20/19 04:40 Toxic Vacuolation Not Reportable 05/20/19 04:40 Dohle Bodies Not Reportable 05/20/19 04:40 Pelger-Huet Anomaly Not Reportable 05/20/19 04:40 Anamaria Rods Not Reportable 05/20/19 04:40 Platelet Estimate Consistent w auto 05/20/19 04:40 Clumped Platelets Not Reportable 05/20/19 04:40 Plt Clumps, EDTA Not Reportable 05/20/19 04:40 Large Platelets Not Reportable 05/20/19 04:40 Giant Platelets Not Reportable 05/20/19 04:40 Platelet Satelliting Not Reportable 05/20/19 04:40 Plt Morphology Comment Not Reportable 05/20/19 04:40 RBC Morphology Not Reportable 05/20/19 04:40 Dimorphic RBCs Not Reportable 05/20/19 04:40 Polychromasia Not Reportable 05/20/19 04:40 Hypochromasia Not Reportable 05/20/19 04:40 Poikilocytosis Not Reportable 05/20/19 04:40 Anisocytosis 1+ 05/20/19 04:40 Microcytosis Not Reportable 05/20/19 04:40 Macrocytosis Not Reportable 05/20/19 04:40 Spherocytes Not Reportable 05/20/19 04:40 Pappenheimer Bodies Not Reportable 05/20/19 04:40 Sickle Cells Not Reportable 05/20/19 04:40 Target Cells Not Reportable 05/20/19 04:40 Tear Drop Cells Not Reportable 05/20/19 04:40 Ovalocytes Not Reportable 05/20/19 04:40 Helmet Cells Not Reportable 05/20/19 04:40 [place] Bodies Not Reportable 05/20/19 04:40 [place] Rings Not Reportable 05/20/19 04:40 Albers Cells Not Reportable 05/20/19 04:40 Bite Cells Not Reportable 05/20/19 04:40 Crenated Cell Not Reportable 05/20/19 04:40 Elliptocytes Not Reportable 05/20/19 04:40 Acanthocytes (Spur) Not Reportable 05/20/19 04:40 Rouleaux Not Reportable 05/20/19 04:40 Hemoglobin C Crystals Not Reportable 05/20/19 04:40 Schistocytes Not Reportable 05/20/19 04:40 Malaria parasites Not Reportable 05/20/19 04:40 Demond Bodies Not Reportable 05/20/19 04:40 Hem Pathologist Commnt No 05/20/19 04:40 PT 30.1 Sec. (12.2-14.9) H 05/22/19 04:19 INR 2.95 (0.87-1.13) H 05/22/19 04:19 APTT 38.2 Sec. (24.2-36.6) H 05/19/19 17:41 POC ABG pH 7.318 (7.35-7.45) L 05/19/19 19:12 POC ABG pCO2 36.8 (35-45) 05/19/19 19:12 POC ABG pO2 199 (80-105) H 05/19/19 19:12 POC ABG HCO3 18.9 (22-26 mml/L) 05/19/19 19:12 POC ABG Total CO2 20 (23-27mmol/L) 05/19/19 19:12 POC ABG O2 Sat 100 05/19/19 19:12 POC ABG Base Excess -7 ((-2) - (+3)mmol/L) 05/19/19 19:12 FiO2 60 % 05/19/19 19:12 Sodium 139 mmol/L (137-145) 05/22/19 04:19 Potassium 4.7 mmol/L (3.6-5.0) 05/22/19 04:19 Chloride 103.3 mmol/L (98-107) 05/22/19 04:19 Carbon Dioxide 22 mmol/L (22-30) 05/22/19 04:19 Anion Gap 18 mmol/L 05/22/19 04:19 BUN 76 mg/dL (9-20) H 05/22/19 04:19 Creatinine 2.7 mg/dL (0.8-1.5) H 05/22/19 04:19 Estimated GFR 30 ml/min 05/22/19 04:19 BUN/Creatinine Ratio 28 % 05/22/19 04:19 Glucose 140 mg/dL (75-100) H 05/22/19 04:19 POC Glucose 163 (70-105) H 05/22/19 11:35 Hemoglobin A1c 6.1 % (4-6) H 05/20/19 04:40 Lactic Acid 1.50 mmol/L (0.7-2.0) 05/19/19 21:58 Calcium 8.5 mg/dL (8.4-10.2) 05/22/19 04:19 Magnesium 2.00 mg/dL (1.7-2.3) 05/21/19 05:23 Iron 32 ug/dL (49-181) L 05/22/19 00:19 TIBC 356 mcg/dL (250-450) 05/22/19 00:19 Ferritin 61.7 ng/mL (13.0-400.0) 05/22/19 00:19 Total Bilirubin 0.30 mg/dL (0.1-1.2) 05/21/19 05:23 Direct Bilirubin < 0.2 mg/dL (0-0.2) 05/21/19 05:23 Indirect Bilirubin 0.1 mg/dL 05/21/19 05:23 AST 13 units/L (5-40) 05/21/19 05:23 ALT 126 units/L (7-56) H 05/21/19 05:23 Alkaline Phosphatase 199 units/L (35-129) H 05/21/19 05:23 Total Creatine Kinase 63 units/L (55-170) 05/19/19 17:41 Troponin T 0.023 ng/mL (0.00-0.029) 05/19/19 17:41 Total Protein 6.0 g/dL (6.3-8.2) L 05/21/19 05:23 Albumin 3.8 g/dL (3.9-5) L 05/21/19 05:23 Albumin/Globulin Ratio 1.7 % 05/21/19 05:23 Urine Color Yellow (Yellow) 05/19/19 Unknown Urine Turbidity Clear (Clear) 05/19/19 Unknown Urine pH 5.0 (5.0-7.0) 05/19/19 Unknown Ur Specific [place] 1.013 (1.003-1.030) 05/19/19 Unknown Urine Protein 100 mg/dl mg/dL (Negative) 05/19/19 Unknown Urine Glucose (UA) Neg mg/dL (Negative) 05/19/19 Unknown Urine Ketones Neg mg/dL (Negative) 05/19/19 Unknown Urine Blood Neg (Negative) 05/19/19 Unknown Urine Nitrite Neg (Negative) 05/19/19 Unknown Urine Bilirubin Neg (Negative) 05/19/19 Unknown Urine Urobilinogen < 2.0 mg/dL (<2.0) 05/19/19 Unknown Ur Leukocyte Esterase Neg (Negative) 05/19/19 Unknown Urine WBC (Auto) 5.0 /HPF (0.0-6.0) 05/19/19 Unknown Urine RBC (Auto) 4.0 /HPF (0.0-6.0) 05/19/19 Unknown U Epithel Cells (Auto) < 1.0 /HPF (0-13.0) 05/19/19 Unknown Urine Yeast (Budding) Few /HPF 05/19/19 Unknown Hepatitis A IgM Ab Non-reactive (NonReactive) 05/21/19 05:23 Hep Bs Antigen Non-reactive (Negative) 05/21/19 05:23 Hep B Core IgM Ab Non-reactive (NonReactive) 05/21/19 05:23 Hepatitis C Antibody Non-reactive (NonReactive) 05/21/19 05:23 Active Medications - Current Medications Current Medications: Generic Name Dose Route Start Last Admin Trade Name Freq PRN Reason Stop Dose Admin Acetaminophen 650 mg 05/19/19 20:29 05/21/19 21:33 Tylenol PO 650 mg Q4H PRN Administration Pain MILD(1-3)/Fever >100.5/LUA Albuterol 2.5 mg 05/19/19 20:29 Proventil IH Q3HRT PRN Shortness Of Breath Albuterol/Ipratropium 1 ampul 05/22/19 08:00 05/22/19 14:22 Duoneb *Not For Prn Use* IH 1 ampul TIDRT ALBIN Administration Atorvastatin Calcium 20 mg 05/19/19 22:00 05/21/19 21:32 Lipitor PO 20 mg QHS ALBIN Administration Dextrose 0 ml 05/19/19 22:06 D50w (25gm) Syringe IV Q30MIN PRN Hypoglycemia Protocol Docusate Sodium 100 mg 05/19/19 22:00 05/22/19 10:26 Colace PO Not Given BID ALBIN Furosemide 40 mg 05/20/19 06:00 05/22/19 05:13 Lasix IV 40 mg 0600,1800 ALBIN Administration Hydralazine HCl 10 mg 05/20/19 18:38 05/21/19 20:21 Apresoline IV 10 mg Q4HR PRN Administration Blood Pressure Ceftriaxone Sodium 1 gm in 50 mls @ 100 mls/hr 05/19/19 21:00 05/22/19 10:27 Rocephin/Ns 1 Gm/50 Ml IV 100 mls/hr Q24HR ALBIN Administration Protocol Insulin Human Regular 0 units 05/20/19 00:00 05/22/19 13:50 Humulin R SUB-Q 2 units Q6HR ALBIN Administration Protocol Labetalol HCl 10 mg 05/20/19 18:38 Labetalol IV Q4H PRN SBP=>180 Methylprednisolone Sodium Succinate 60 mg 05/19/19 22:00 05/22/19 13:51 Solu-Medrol IV 60 mg Q8HR ALBIN Administration Metoprolol Tartrate 50 mg 05/20/19 22:00 05/22/19 10:27 Metoprolol PO 50 mg BID ALBIN Administration Nicotine 14 mg 05/20/19 10:00 05/22/19 10:27 Habitrol TD Not Given QDAY ALBIN Nifedipine 90 mg 05/20/19 15:00 05/22/19 10:27 Procardia Xl PO 90 mg QDAY ALBIN Administration Ondansetron HCl 4 mg 05/19/19 20:29 Zofran IV Q8H PRN Nausea And Vomiting Sodium Bicarbonate 650 mg 05/20/19 14:00 05/22/19 13:51 Sodium Bicarbonate PO 650 mg TID ALBIN Administration Sodium Chloride 10 ml 05/19/19 22:00 05/22/19 10:28 Sodium Chloride Flush Syringe 10 Ml IV 10 ml BID ALBIN Administration Sodium Chloride 10 ml 05/19/19 20:29 Sodium Chloride Flush Syringe 10 Ml IV PRN PRN LINE FLUSH Warfarin Sodium 1 mg 05/22/19 17:00 Coumadin PO DAILY@1700 [facility] Nutrition/Malnutrition Assess - Dietary Evaluation Nutrition/Malnutrition Findings: Nutrition Notes Start: 05/20/19 10:28 Freq: Status: Active Protocol: Document 05/20/19 10:29 CT (Rec: 05/20/19 10:44 CT [id number]) Co-Sign 05/20/19 10:29 LP Nutrition Notes Need for Assessment generated from: gender studies professor Initial or Follow up Assessment Current Diagnosis CKD(stage I-IV),Diabetes, Hypertension,Heart Failure Other Pertinent Diagnosis Tobacco dependence, Pulmonary edema, SIRS Current Diet NPO Labs/Tests K 5.7 Cl 108.2 BUN 73 Creatinine 3.1 Glu 130 Pertinent Medications Lasix Solumedrol Humalin Height 6 ft 3 in Weight 111 kg Usual Body Weight 97.522 kg [place] Body Weight (kg) 89.09 BMI 30.6 Intake Prior to Admission Good Weight Status Obese Subjective/Other Information Consult for skin risk of 18. Pt was looking around and seemed confused at time of visit. Pt stated that it was June, and was informed it was May. Pt states his last meal was FridayApr 18 for lunch. Pt states that he has gained weight since February. Pt is currently NPO and waiting for diet advancement from MD. Noted slight orbital wasting. Burn Absent Trauma Absent GI Symptoms None Food Allergy No Current % PO Negligible Minimum of two criteria No Body Fat Depletion Mild depletion (non-severe) #1 Nutrition Diagnosis Inadequate oral intake Etiology NPO As Evidenced by Signs and Symptoms slight orbital wasting, pt stating last meal was Friday at lunch Is patient on ventilator? No Is Patient Ambulatory and/or Out of Bed Yes [facility] [ 2639.819 [id number]] Kcal/Kg value to use for calculation 21 Approximate Energy Requirements Using 2331 kcal/Kg Calculation Used for Recommendations Kcal/kg Additional Notes Protein needs: 80-90 g/kg/day (0.8-0.9 g/kg/day AdBW 100.11 kg) Fluid needs: 1 ml/kcal/day or per MD Nutrition Intervention Change Diet Order: Diet advancement when medically feasible Goal #1 Diet advancement Anticipated Discharge Needs: unable to determine at this time Follow-Up By: 05/24/19 Additional Comments Follow for diet advancement and PO intakes
--- NOTE | 2019-05-22 16:08 | Discharge Summary ---
Providers - Providers Date of Admission: 05/19/19 20:29 Attending physician: CAROL MORSE 05/19/19 20:26 Consult to Physician [CONS] Routine Comment: Consulting Provider: SRINIVAS MEJIA Physician Instructions: Reason For Exam: pulmonary edema, hx HF 05/19/19 20:35 Consult to Physician [CONS] Routine Comment: Consulting Provider: RASHAD COFFMAN Physician Instructions: Reason For Exam: CDK, est pt 05/19/19 21:18 Consult to Physician [CONS] Routine Comment: Consulting Provider: LORENA PAT Physician Instructions: Reason For Exam: elevated liver enzymes Primary care physician: MECHANICAL ENERGY ENGINEER Hospitalization Condition: Stable Hospital course: Patient is a 53-year-old -Malagasy man with a history of CKD 3, hypertension, paroxysmal atrial fibrillation, mild dilated cardiomyopathy, estimated ejection fraction 40-45% by an echocardiogram done at [facility] about one week ago, diabetes mellitus type 2 and tobacco abuse who presents to [facility] ED via EMS with complaints of fluid on lungs and difficulty breathing. Patient states that he was admitted to [facility] for approximately 7-8 days for "breathing issues" and was discharged yesterday on 05/18/19. He returns here with severe worsening SOB. He was hypoxic so BIPAP was started. Patient denies home O2 use. He reports that his "water pill" was discontinued, which cause him to ave fluid build up. * pCXR Impression: New-onset moderate CHF, advanced destructive emphysema right upper lobe Acute on chronic decompensated systolic heart failure -treated with iv lasix bid, Cardiology consulted, input noted -stress test unremarkable Hypertensive urgency -BP on admission 201/125 -Hx Hypertension -Continue to monitor BP -Resume home antihypertensive meds to optimize BP -IV antihypertensive when necessary Acute hypoxic Respiratory Failure -ABG on admission 7.318/36.8/199/18.9 -No baseline home oxygen requirements -CXR shows Advanced destructive emphysema right upper lobe -Weaned off BiPaP -Respiraroty treat and assess -Continue supprtive care -Continue to Monitor SIRS with organ dysfunction, poa -TMAX 96.4 -HR 93 -RR 29 -WBC 14.5K -Mild hypothermia with temperature 96.4 -Blood Cultures negative -Lactic Acid pending -Empirically on Rocephin -Continue to monitor CBC pAFib -on Warfarin -monitor anticoagulation closely Anemia , AOCD -Hemoglobin on admission 11.4 -No s/s of active bleeding -Continue to monitor hemoglobin -Transfuse as needed KRYS, vasomotor nephropathy, poa -Cr on admission 3.3 -Hx of CDK3 GFR 24 -Avoid nephrotoxic agents -Renal dose all meds -Nephrology consulted, input noted Elevated LFTs -AST 45, ALT 226 -GI Consulted, input noted DM type 2 -POC BG monitoring -SSI coverage prn -HgbA1C pending Tobacco abuse -Current every day smoker -Counseled for cessation -Nicotine patch when necessary DVT PPX -On warfarin Disposition: d/c home if able to wean off O2 Disposition: DC- TO HOME OR SELFCARE Time spent for discharge: 33 min Core Measure Documentation - Palliative Care Palliative Care/ Comfort Measures: Not Applicable - Core Measures Any of the following diagnoses?: heart failure - VTE Discharge Requirements Deep Vein Thrombosis/Pulmonary Embolism Present on Admission: No Has pt received <5 days of overlap therapy or INR<2.0: No Anticoagulant overlap therapy prescribed at discharge: No Contraindication No Overlap Therapy order at DC: Not Indicated - Heart Failure Discharge Requirements RICHELLE/ARB for LVSD if EF <40%: No Reason for no RICHELLE/ARB: Renal impairment Beta kiana at discharge: Yes Exam - Physical Exam Narrative exam: Gen: ill appearing, mild increase accessory muscle usage, Awake, Alert, Orientated HEENT: NCAT, EOMI, PERRL, OP Clear Neck: supple, no adenopathy, no thyromegaly, JVD CVS/Heart: RRR, normal S1S2, pulses present bilaterally Chest/Lungs: diminished with bibasilar crackles, Symmetrical chest expansion, good air entry bilaterally GI/Abdomen: soft, NTND, good bowel sounds, no guarding or rebound /Bladder: no suprapubic tenderness, no CVA or paraspinal tenderness Extermity/Skin: leg pre-tibial edema MSK: FROM x 4 Neuro: CN 2-12 grossly intact, no new focal deficits Psych: calm - Constitutional Vitals: Temp Pulse Resp BP Pulse Ox 97.8 F 78 18 149/95 97 05/22/19 11:25 05/22/19 14:25 05/22/19 14:25 05/22/19 11:25 05/22/19 11:25 Plan Activity: other (no strenous activity unless cleared by Cardiology) Diet: low salt Special Instructions: record daily weights, record daily BP diary, smoking cessation Follow up with: PRIMARY CAREMD [Primary Care Provider] - 3-5 Days SRINIVAS MEJIA MD [Staff Physician] - 7 Days RASHAD COFFMAN MD [Staff Physician] - 7 Days Forms: Warfarin Discharge Instruction Prescriptions: AtorvaSTATin [Lipitor] 20 mg PO QHS #30 tablet cefUROXime [Ceftin] 2 tab PO BID 5 Days #10 tablet Nicotine [Habitrol] 14 mg TD QDAY #7 patch Furosemide [Lasix TAB] 40 mg PO BID #60 tablet Metoprolol [Lopressor TAB] 50 mg PO BID #60 tablet methylPREDNISolone [Medrol 4MG DOSEPAK (21 tabs)] 1 dose PO DAILY #1 pack ALBUTEROL Inhaler (OR & NICU) [ProAir HFA Inhaler] 2 puff IH QID PRN #8.5 gram PRN Reason: Shortness Of Breath NIFEdipine XL [Procardia Xl] 90 mg PO QDAY #30 tablet Sodium Bicarbonate 650 mg PO TID #90 tablet
[2019-05-22] MEDS ORDERED: WARFARIN 1 MG TAB PO SCH (17:00)
--- NOTE | 2019-05-24 09:56 | Treadmill Report ---
THALLIUM STRESS TEST REPORT LEFT VENTRICLE: Left ventricular chamber size at the upper limits of normal. Perfusion study demonstrates fairly homogeneous uptake of the tracer in all segments, no significant perfusion defects identified. Mild diaphragmatic attenuation artifact is noted. Gated analysis demonstrates left ventricular systolic function at the lower limits of normal, ejection fraction 51%. CONCLUSION: Normal myocardial perfusion study. [facility]# [id number] CA/NTS
[2019-05-25 14:07] LABS: ANA Screen, IFA Negative (Negative)
== END 2019-05-22 19:50 | disposition home or self-care (01) | DRG 291 ==
LOC: ED 17:06 → CC1 20:29 → IMCU 20:58 → CC1 21:02 → IMCU 21:04 → 4A 05-20 21:10
PROVIDERS: ADMIT Internal Medicine; ATTEND Internal Medicine
PROC: 4A033R1 Measurement of Arterial Saturation, Peripheral, Percutaneous Approach (ICD-10-PCS; principal; 2019-05-19)
PROC: 5A09357 Assistance with Respiratory Ventilation, Less than 24 Consecutive Hours, Continuous Positive Airway Pressure (ICD-10-PCS; 2019-05-19)
PROC: 5A09357 Assistance with Respiratory Ventilation, Less than 24 Consecutive Hours, Continuous Positive Airway Pressure (ICD-10-PCS; 2019-05-20)
PROC: 5A09357 Assistance with Respiratory Ventilation, Less than 24 Consecutive Hours, Continuous Positive Airway Pressure (ICD-10-PCS; 2019-05-22)
DX: I13.0 Hypertensive heart and chronic kidney disease with heart failure and stage 1 through stage 4 chronic kidney disease, or unspecified chronic kidney disease (principal); I50.23 Acute on chronic systolic (congestive) heart failure; J96.01 Acute respiratory failure with hypoxia; R65.11 Systemic inflammatory response syndrome (SIRS) of non-infectious origin with acute organ dysfunction; N17.0 Acute kidney failure with tubular necrosis; N18.4 Chronic kidney disease, stage 4 (severe); I42.0 Dilated cardiomyopathy; E11.22 Type 2 diabetes mellitus with diabetic chronic kidney disease; R79.89 Other specified abnormal findings of blood chemistry; I16.0 Hypertensive urgency; F17.210 Nicotine dependence, cigarettes, uncomplicated; E87.6 Hypokalemia; I48.0 Paroxysmal atrial fibrillation; Z79.01 Long term (current) use of anticoagulants; Z71.6 Tobacco abuse counseling; Z79.84 Long term (current) use of oral hypoglycemic drugs
CPT/HCPCS: 36415; 36600; 71045; 76700; 78452; 80048; 80053; 80074; 80076; 81001; 82140; 82550; 82728; 82803; 82962; 83036; 83550; 83735; 84484; 85007; 85025; 85027; 85610; 85730; 86038; 87040; 93005; 93010; 93017; 94640; 94644; 94660; 94760; 96374; 99406; G0378; A9270-GY; A9502; J0360; J0696; J1644; J1815; J1940; J2270; J2785; J2920; J2930

== ENCOUNTER 2019-05-28 17:40 | Inpatient (IN) | payer OTHER ==
--- NOTE | 2019-05-28 19:49 | Emergency Department Report ---
ED Abdominal Pain HPI - General Chief Complaint: Abdominal Pain Stated Complaint: L FLANK PAIN Time Seen by Provider: 05/28/19 19:36 Source: patient, EMS Mode of arrival: Stretcher Limitations: No Limitations - History of Present Illness Initial Comments: 53-year-old male, history of CKD, CHF, A. fib, hypertension, diabetes, presents to ED with complaint of left flank pain since midnight. Patient denies any fever, nausea or vomiting. He does report diarrhea and urinary frequency. Patient states he has a history of chronic kidney disease. Patient denies having a PCP. MD Complaint: flank pain -: This morning Location: L flank Radiation: none Migration to: no migration Severity: moderate Quality: cramping Consistency: constant Improves With: nothing Worsens With: nothing Associated Symptoms: diarrhea. denies: nausea, vomiting, fever, dysuria - Related Data Previous Rx's Medication Instructions Recorded Last Taken Type hydrALAZINE [Apresoline TAB] 50 mg PO QID #120 tablet 11/19/17 Unknown Rx ALBUTEROL Inhaler (OR & NICU) 2 puff IH QID PRN #8.5 gram 05/22/19 Unknown Rx [ProAir HFA Inhaler] Acetaminophen [Acetaminophen TAB] 650 mg PO Q4H PRN #10 tablet 05/22/19 Unknown Rx AtorvaSTATin [Lipitor] 20 mg PO QHS #30 tablet 05/22/19 Unknown Rx Furosemide [Lasix TAB] 40 mg PO BID #60 tablet 05/22/19 Unknown Rx Metoprolol [Lopressor TAB] 50 mg PO BID #60 tablet 05/22/19 Unknown Rx NIFEdipine XL [Procardia Xl] 90 mg PO QDAY #30 tablet 05/22/19 Unknown Rx Nicotine [Habitrol] 14 mg TD QDAY #7 patch 05/22/19 Unknown Rx Sodium Bicarbonate 650 mg PO TID #90 tablet 05/22/19 Unknown Rx cefUROXime [Ceftin] 2 tab PO BID 5 Days #10 tablet 05/22/19 Unknown Rx methylPREDNISolone [Medrol 4MG 1 dose PO DAILY #1 pack 05/22/19 Unknown Rx DOSEPAK (21 tabs)] Allergies Allergy/AdvReac Type Severity Reaction Status Date / Time No Known Allergies Allergy Verified 05/19/19 17:17 ED Review of Systems ROS: Stated complaint: L FLANK PAIN FAILURE TO THRIVE Other details as noted in HPI Comment: All other systems reviewed and negative Constitutional: denies: chills, fever Respiratory: denies: shortness of breath Cardiovascular: denies: chest pain Gastrointestinal: abdominal pain, diarrhea. denies: nausea, vomiting Genitourinary: frequency. denies: dysuria ED Past Medical Hx - Past Medical History Previous Medical History?: Yes Hx Hypertension: Yes Hx Congestive Heart Failure: Yes Hx Diabetes: Yes (pt denies) Hx Asthma: No Hx COPD: No Hx HIV: No - Surgical History Additional Surgical History: Broken right femur in 1982 - Social History Smoking Status: Current Every Day Smoker Substance Use Type: Alcohol - Medications Home Medications: Home Medications Medication Instructions Recorded Confirmed Last Taken Type hydrALAZINE [Apresoline TAB] 50 mg PO QID #120 tablet 11/19/17 05/20/19 Unknown Rx ALBUTEROL Inhaler (OR & NICU) 2 puff IH QID PRN #8.5 gram 05/22/19 Unknown Rx [ProAir HFA Inhaler] Acetaminophen [Acetaminophen TAB] 650 mg PO Q4H PRN #10 tablet 05/22/19 Unknown Rx AtorvaSTATin [Lipitor] 20 mg PO QHS #30 tablet 05/22/19 Unknown Rx Furosemide [Lasix TAB] 40 mg PO BID #60 tablet 05/22/19 Unknown Rx Metoprolol [Lopressor TAB] 50 mg PO BID #60 tablet 05/22/19 Unknown Rx NIFEdipine XL [Procardia Xl] 90 mg PO QDAY #30 tablet 05/22/19 Unknown Rx Nicotine [Habitrol] 14 mg TD QDAY #7 patch 05/22/19 Unknown Rx Sodium Bicarbonate 650 mg PO TID #90 tablet 05/22/19 Unknown Rx cefUROXime [Ceftin] 2 tab PO BID 5 Days #10 tablet 05/22/19 Unknown Rx methylPREDNISolone [Medrol 4MG 1 dose PO DAILY #1 pack 05/22/19 Unknown Rx DOSEPAK (21 tabs)] ED Physical Exam - General Limitations: No Limitations General appearance: alert, in no apparent distress - Head Head exam: Present: atraumatic, normocephalic - Eye Eye exam: Present: normal appearance, EOMI - ENT ENT exam: Present: mucous membranes moist - Neck Neck exam: Present: normal inspection - Respiratory Respiratory exam: Present: normal lung sounds bilaterally. Absent: respiratory distress - Cardiovascular Cardiovascular Exam: Present: regular rate, normal rhythm - GI/Abdominal GI/Abdominal exam: Present: soft, tenderness (mild LLQ tenderness), other (bruising to right and left lower quadrants, worse on the right). Absent: distended - Extremities Exam Extremities exam: Present: normal inspection - Back Exam Back exam: Absent: CVA tenderness (R), CVA tenderness (L) - Neurological Exam Neurological exam: Present: alert, oriented X3, CN II-XII intact. Absent: motor sensory deficit - Psychiatric Psychiatric exam: Present: normal affect, normal mood - Skin Skin exam: Present: warm, dry, intact ED Course Vital Signs 05/28/19 05/28/19 05/28/19 20:09 20:10 20:12 Temperature 98.5 F Pulse Rate 153 H 145 H Respiratory 29 H 29 H Rate Blood Pressure 162/114 O2 Sat by Pulse 98 94 Oximetry 05/28/19 05/28/19 05/28/19 20:15 20:24 20:45 Temperature Pulse Rate 144 H 119 H Respiratory 32 H 18 30 H Rate Blood Pressure 162/114 162/105 O2 Sat by Pulse 91 Oximetry 05/28/19 05/28/19 05/28/19 21:01 21:15 21:31 Temperature Pulse Rate 137 H 125 H 139 H Respiratory 36 H 38 H 37 H Rate Blood Pressure 133/107 124/104 138/104 O2 Sat by Pulse 93 92 90 Oximetry 05/28/19 05/28/19 05/28/19 22:01 22:15 22:31 Temperature Pulse Rate 126 H 131 H 156 H Respiratory 32 H 22 23 Rate Blood Pressure 140/118 136/114 158/116 O2 Sat by Pulse 92 95 95 Oximetry 05/28/19 05/28/19 05/28/19 22:49 23:01 23:15 Temperature Pulse Rate 127 H 153 H 125 H Respiratory 31 H 39 H Rate Blood Pressure 158/116 133/101 133/101 O2 Sat by Pulse 92 96 Oximetry 05/28/19 05/28/19 05/29/19 23:17 23:45 00:01 Temperature Pulse Rate 148 H 132 H 132 H Respiratory 35 H 28 H 24 Rate Blood Pressure 151/115 148/118 131/86 O2 Sat by Pulse 97 95 96 Oximetry 05/29/19 05/29/19 05/29/19 00:07 00:15 00:31 Temperature Pulse Rate 133 H 152 H 138 H Respiratory 38 H 32 H Rate Blood Pressure 139/95 138/95 O2 Sat by Pulse 93 95 Oximetry 05/29/19 05/29/19 05/29/19 00:47 01:01 01:15 Temperature Pulse Rate 162 H 124 H Respiratory 16 14 21 Rate Blood Pressure 130/84 130/84 O2 Sat by Pulse 97 92 93 Oximetry 05/29/19 01:31 Temperature Pulse Rate Respiratory 31 H Rate Blood Pressure 130/84 O2 Sat by Pulse 91 Oximetry ED Medical Decision Making - Lab Data Result diagrams: 05/28/19 20:55 05/28/19 20:55 - EKG Data -: EKG Interpreted by Nv EKG shows normal: QRS complexes Rate: tachycardia (rate 147) - EKG Data Interpretation: nonspecific ST-T wave mi, other (Afib w/ RVR) - Radiology Data Radiology results: report reviewed, image reviewed - Medical Decision Making 53-year-old male presents to ED with left flank pain. Unclear etiology of flank pain. Urine shows no significant evidence of infection. CT shows nonspecific inflammatory changes of the left suprarenal area, however patient has no CVA tenderness. Note patient has history of A. fib. Recent discharge summary from last week since the patient should be on Coumadin and metoprolol. Patient is currently in A. fib with RVR, and INR is subtherapeutic. Patient was given metoprolol and labetalol, without significant change in the rate. He was given diltiazem bolus and placed on a diltiazem drip. Heparin drip also initiated since INR is 1.08. Patient has chronic kidney disease, potassium today is 5.4. Patient was treated for hyperkalemia with insulin, D50, calcium gluconate, Kayexalate. Spoke with hospitalist, will admit the patient for further management. - Differential Diagnosis kidney stone, pneumonia, diverticulitis, pyelonephritis Critical Care Time: Yes Critical care time in (mins) excluding proc time.: 35 Critical care attestation.: If time is entered above; I have spent that time in minutes in the direct care of this critically ill patient, excluding procedure time. Critical Care Time: 35 min ED Disposition Clinical Impression: Hyperkalemia, Atrial fibrillation with RVR, Subtherapeutic international normalized ratio (INR) Disposition: DC-09 OP ADMIT IP TO THIS HOSP Is pt being admited?: Yes Condition: Stable Time of Disposition: 00:08
[2019-05-28] MEDS ORDERED: dilTIAZem 25 MG/5 ML INJ IV ONE (20:30)
[2019-05-28] MEDS ORDERED: METOPROLOL TARTRATE 5 MG/5 ML INJ IV ONE (20:52)
[2019-05-28 21:46] LABS: Albumin 3.4 g/dL (3.9-5); Calcium 8.5 mg/dL (8.4-10.2)
[2019-05-28 21:48] LABS: Eosinophils % (Auto) 0.3 % (0.0-4.3); Hematocrit 33.8 % (35.5-45.6); Hemoglobin 10.8 gm/dl (11.8-15.2); Lymphocytes # (Auto) 1.7 K/mm3 (1.2-5.4); Lymphocytes % (Auto) 12.3 % (13.4-35.0); Mean Corpuscular HGB Conc 32 % (32-34); Mean Corpuscular Volume 74 fl (84-94); Monocytes # (Auto) 0.9 K/mm3 (0.0-0.8); Monocytes % (Auto) 6.7 % (0.0-7.3); Platelet Count 194 K/mm3 (140-440); Red Blood Count 4.57 M/mm3 (3.65-5.03); Red Cell Distribution Width 17.3 % (13.2-15.2)
[2019-05-28 21:59] LABS: INR 1.08 (0.87-1.13)
[2019-05-28 22:00] LABS: Partial Thromboplastin Time 26.4 Sec. (24.2-36.6)
[2019-05-28] MEDS ORDERED: DEXTROSE 50% IN WATER (25GM) 50 ML SYRINGE IV ONE (22:17)
[2019-05-28] MEDS ORDERED: INSULIN REGULAR, HUMAN 100 UNITS/1 ML IV ONE (22:17)
[2019-05-28] MEDS ORDERED: SODIUM POLYSTYRENE 15 GM/60 ML ORAL LIQD PO ONE (22:18)
--- NOTE | 2019-05-28 23:12 | XRay Report ---
CHEST 1 VIEW INDICATION / CLINICAL INFORMATION: pain. COMPARISON: 05/19/2019 FINDINGS: SUPPORT DEVICES: None. HEART / MEDIASTINUM: Moderately enlarged but stable. LUNGS / PLEURA: The bilateral lung consolidation shows near complete clearing with only minimal densi ty remaining. Bullous changes are seen in the right upper lobe. No effusions. No pneumothorax. ADDITIONAL FINDINGS: No significant additional findings. IMPRESSION: 1 Improving chest Signer Name: Norm Joseph MD Signed: 05/28/2019 11:07 PM Workstation Name: [id number]
[2019-05-28 23:16] LABS: Bacteria,Urine 1+ /HPF (Negative); Bilirubin,Urine NEG (Negative); Blood,Urine NEG (Negative); Color,Urine Yellow (Yellow); Mucus,Urine FEW /HPF; Urobilinogen,Urine < 2.0 mg/dL (<2.0)
--- NOTE | 2019-05-28 23:21 | Cat Scan Report ---
CT abdomen pelvis wo con INDICATION / CLINICAL INFORMATION: L flank pain. TECHNIQUE: Axial CT imaging of abdomen and pelvis was obtained without contrast. Coronal and sagittal reformatte d imaging obtained and reviewed. All CT scans at this location are performed using CT dose reduction for ALARA by means of automated exposure control. COMPARISON: None available. FINDINGS: CT abdomen without contrast demonstrates grossly normal appearance of the liver, spleen, pancreas, ki dneys, and right adrenal gland. There is focal nonspecific inflammatory change in the left suprarenal location, possibly associated with the left adrenal gland but the exact source for the inflammatory changes is unclear. This may be better evaluated with repeat CT scan with IV contrast. CT pelvis without contrast demonstrates normal appearance of the appendix. Small amount of free fluid is seen in the posterior cul-de-sac. GI tract is grossly normal. Visualized lung bases demonstrate very small bilateral pleural effusions. Visualized lung bases are o therwise clear. No significant osseous abnormality. IMPRESSION: 1. Nonspecific inflammatory change noted in the left suprarenal location of uncertain etiology. This may be related to the adrenal gland. If possible, recommend repeating CT abdomen with IV contrast. 2. Small amount of free fluid is seen in the pelvis. 3. Small bilateral pleural effusions. Signer Name: Cari Grissom MD Signed: 05/28/2019 11:16 PM Workstation Name: [id number]
[2019-05-29] MEDS: dilTIAZem/D5W 100 MG/100 ML BAG IV SCH ×2 (00:07→20:00)
[2019-05-29] MEDS ORDERED: HEPARIN 10,000 UNITS/10 ML VIAL IV ONE (00:12)
[2019-05-29] MEDS ORDERED: ONDANSETRON 4 MG/2 ML INJ IV PRN (00:45)
[2019-05-29] MEDS ORDERED: MAGNESIUM HYDROXIDE (MOM) ORAL LIQD UDC PO PRN (00:45)
[2019-05-29] MEDS ORDERED: ACETAMINOPHEN 325 MG TAB PO PRN (00:45)
[2019-05-29] MEDS ORDERED: HEPARIN/ 0.45% NACL DRIP 25,000 UNIT/500 ML BAG IV SCH (01:00)
--- NOTE | 2019-05-29 02:45 | History and Physical Report ---
History of Present Illness Date of examination: 05/29/19 Date of admission: 05/29/19 00:10 Chief complaint: Left flank pain History of present illness: Patient is a 53-year-old male with known history of CKD, CHF, A. fib, hypertension, diabetes mellitus. Presents to the emergency room today complaining of left flank pain which has been ongoing since last night. He denies any fever, no chills, no nausea vomiting, no hematuria or dysuria. He denies any history of kidney stones. Patient was seen here about a week ago was treated for pulmonary edema. Upon arrival in the emergency room evaluation shows that patient was in atrial fibrillation with RVR, was also found to be slightly hyperkalemic. Patient was placed on IV Cardizem drip. Past History Past Medical History: atrial fib, diabetes, heart failure, hypertension, renal failure (Chronic kidney disease) Past Surgical History: Other (Right hip surgery) Social history: smoking (Smokes 2 to 3 cigarettes daily) Family history: diabetes, hypertension, other (Bipolar disorder runs in family) Medications and Allergies Allergies Allergy/AdvReac Type Severity Reaction Status Date / Time No Known Allergies Allergy Verified 05/19/19 17:17 Home Medications Medication Instructions Recorded Confirmed Last Taken Type hydrALAZINE [Apresoline TAB] 50 mg PO QID #120 tablet 11/19/17 05/20/19 Unknown Rx ALBUTEROL Inhaler (OR & NICU) 2 puff IH QID PRN #8.5 gram 05/22/19 Unknown Rx [ProAir HFA Inhaler] Acetaminophen [Acetaminophen TAB] 650 mg PO Q4H PRN #10 tablet 05/22/19 Unknown Rx AtorvaSTATin [Lipitor] 20 mg PO QHS #30 tablet 05/22/19 Unknown Rx Furosemide [Lasix TAB] 40 mg PO BID #60 tablet 05/22/19 Unknown Rx Metoprolol [Lopressor TAB] 50 mg PO BID #60 tablet 05/22/19 Unknown Rx NIFEdipine XL [Procardia Xl] 90 mg PO QDAY #30 tablet 05/22/19 Unknown Rx Nicotine [Habitrol] 14 mg TD QDAY #7 patch 05/22/19 Unknown Rx Sodium Bicarbonate 650 mg PO TID #90 tablet 05/22/19 Unknown Rx cefUROXime [Ceftin] 2 tab PO BID 5 Days #10 tablet 05/22/19 Unknown Rx methylPREDNISolone [Medrol 4MG 1 dose PO DAILY #1 pack 05/22/19 Unknown Rx DOSEPAK (21 tabs)] Active Meds: Active Medications Acetaminophen (Tylenol) 650 mg PO Q6H PRN PRN Reason: Pain MILD(1-3)/Fever >100.5/LUA Diltiazem HCl (Cardizem/D5w 100mg/100ml) 100 mg in 100 mls @ 5 mls/hr IV TITR ALBIN; Protocol Last Titration: 05/29/19 01:25 Dose: 15 mg/hr, 15 mls/hr Documented by: Heparin Sodium/Sodium Chloride (Heparin/ 0.45% Nacl-25,000 Unit/500 Ml) 25,000 unit in 500 mls @ 29 mls/hr IV TITR ALBIN; Protocol Last Admin: 05/29/19 00:42 Dose: 1,450 units/hr, 29 mls/hr Documented by: Magnesium Hydroxide (Milk Of Magnesia) 30 ml PO Q4H PRN PRN Reason: Constipation Morphine Sulfate (Morphine) 2 mg IV Q4H PRN PRN Reason: Pain, Moderate (4-6) Ondansetron HCl (Zofran) 4 mg IV Q8H PRN PRN Reason: Nausea And Vomiting Sodium Chloride (Sodium Chloride Flush Syringe 10 Ml) 10 ml IV BID ALBIN Sodium Chloride (Sodium Chloride Flush Syringe 10 Ml) 10 ml IV PRN PRN PRN Reason: LINE FLUSH Review of Systems Gastrointestinal: other (Left flank pain) Exam - Constitutional Vitals: Temp Pulse Resp BP Pulse Ox 98.5 F 124 H 31 H 130/84 91 05/28/19 20:12 05/29/19 01:01 05/29/19 01:31 05/29/19 01:31 05/29/19 01:31 General appearance: Present: no acute distress, well-nourished - EENT Eyes: Present: PERRL, EOM intact ENT: hearing intact, clear oral mucosa, dentition normal - Neck Neck: Present: supple, normal ROM - Respiratory Respiratory effort: normal Respiratory: bilateral: CTA - Cardiovascular Rhythm: irregularly irregular Heart Sounds: Present: S1 & S2 - Extremities Extremities: no ischemia, pulses symmetrical, No edema, Full ROM Peripheral Pulses: within normal limits - Abdominal General gastrointestinal: Present: soft, non-tender, non-distended - Integumentary Integumentary: Present: clear, warm, dry - Musculoskeletal Musculoskeletal: strength equal bilaterally - Psychiatric Psychiatric: appropriate mood/affect, intact judgment & insight, cooperative - Neurologic Neurologic: CNII-XII intact, moves all extremities Results - Labs CBC & Chem 7: 05/28/19 20:55 05/29/19 01:56 Labs: Abnormal lab results 05/28/19 05/28/19 Range/Units 20:55 20:55 WBC 13.8 H (4.5-11.0) K/mm3 Hgb 10.8 L (11.8-15.2) gm/dl Hct 33.8 L (35.5-45.6) % MCV 74 L (84-94) fl MCH 24 L (28-32) pg RDW 17.3 H (13.2-15.2) % Lymph % (Auto) 12.3 L (13.4-35.0) % [place] # 0.9 H (0.0-0.8) K/mm3 Seg Neutrophils % 80.7 H (40.0-70.0) % Seg Neutrophils # 11.1 H (1.8-7.7) K/mm3 Potassium 5.4 H (3.6-5.0) mmol/L Carbon Dioxide 16 L (22-30) mmol/L BUN 62 H (9-20) mg/dL Creatinine 2.9 H (0.8-1.5) mg/dL Glucose 101 H (75-100) mg/dL AST 53 H (5-40) units/L ALT 98 H (7-56) units/L Alkaline Phosphatase 176 H (35-129) units/L Albumin 3.4 L (3.9-5) g/dL Assessment and Plan - Patient Problems (1) Hyperkalemia Current Visit: Yes Status: Acute Plan to address problem: Patient has been given Kayexalate. Will monitor potassium level. There has been no EKG changes. (2) Atrial fibrillation with RVR Current Visit: Yes Status: Acute Plan to address problem: Patient currently on Cardizem drip and will titrate according to protocol. We will request cardiology evaluation and recommendation. (3) Chronic kidney disease Current Visit: Yes Status: Acute Plan to address problem: We will monitor BUN and creatinine. We will also nephrology evaluation and recommendation. (4) HTN (hypertension) Current Visit: No Status: Chronic Qualifiers: Hypertension type: essential hypertension Qualified Code(s): I10 - Essential (primary) hypertension Plan to address problem: Blood pressure stable. Will monitor vital signs. (5) DVT prophylaxis Current Visit: No Status: Acute Plan to address problem: Patient currently on heparin drip. (6) Full code status Current Visit: Yes Status: Acute
--- NOTE | 2019-05-29 11:34 | Event Note ---
Date: 05/29/19 This is a follow-up from an early admission. Patient seen and examined. We will continue the plan as outlined in H&P. Time spent = 25 minutes with greater than 50% spent in coronation of care and counseling.
--- NOTE | 2019-05-29 11:53 | Progress Note ---
Subjective Date of service: 05/29/19 Interval history: 53 year old -[place] male presented to the emergency room with left flank pain for the past 24 hours. He was noted to be in atrial fibrillation with a rapid ventricular response hence a cardiology consult. He denies any chest pains palpitations or dizziness. Patient was recently in the hospital and amiodarone dismount and a stress MPI test done was negative for ischemic coronary artery disease. Objective Vital Signs Temp Pulse Resp BP BP Pulse Ox 05/29/19 09:01 112 H 19 135/87 95 05/29/19 08:31 120 H 23 158/104 92 05/29/19 08:22 121 H 22 158/104 95 05/29/19 08:01 137 H 24 144/74 05/29/19 07:31 19 144/74 93 05/29/19 07:01 119 H 44 H 134/100 95 05/29/19 06:31 143 H 28 H 144/74 95 05/29/19 06:01 101 H 20 144/74 92 05/29/19 05:00 116 H 19 145/103 92 05/29/19 04:01 93 H 20 144/107 93 05/29/19 03:31 117 H 16 146/98 97 05/29/19 03:01 116 H 36 H 146/98 94 05/29/19 02:31 130 H 24 150/85 91 05/29/19 02:01 141 H 23 150/85 92 05/29/19 01:31 31 H 130/84 91 05/29/19 01:15 21 130/84 93 05/29/19 01:01 124 H 14 130/84 92 05/29/19 00:47 162 H 16 97 05/29/19 00:31 138 H 32 H 138/95 95 05/29/19 00:15 152 H 38 H 139/95 93 05/29/19 00:07 133 H 05/29/19 00:01 132 H 24 131/86 96 05/28/19 23:45 132 H 28 H 148/118 95 05/28/19 23:17 148 H 35 H 151/115 97 05/28/19 23:15 125 H 39 H 133/101 96 05/28/19 23:01 153 H 31 H 133/101 92 05/28/19 22:49 127 H 158/116 05/28/19 22:31 156 H 23 158/116 95 05/28/19 22:15 131 H 22 136/114 95 05/28/19 22:01 126 H 32 H 140/118 92 05/28/19 21:31 139 H 37 H 138/104 90 05/28/19 21:15 125 H 38 H 124/104 92 05/28/19 21:01 137 H 36 H 133/107 93 05/28/19 20:45 119 H 30 H 162/105 91 05/28/19 20:24 18 05/28/19 20:15 144 H 32 H 162/114 05/28/19 20:12 98.5 F 05/28/19 20:10 145 H 29 H 162/114 94 05/28/19 20:09 153 H 29 H 98 - Physical Examination General: Appears Well, No Apparent Distress HEENT: Positive: PERRL, EOMI, Normocephaly, Mucus Membranes Moist Neck: Positive: neck supple, trachea midline. Negative: JVD/HJR Cardiac: Positive: Reg Rate and Rhythm, irregularly irregular, S1/S2, PMI, Laterally Displaced Lungs: Positive: Normal Exam, clear to auscultation, No Wheeze, Rales, Rhonchi Neuro: Positive: Grossly Intact, No Lateralizing Findings Abdomen: Positive: Unremarkable Skin: Positive: Clear Extremities: Absent: edema - Labs and Meds Cardiac Enzymes 05/28/19 Range/Units 20:55 AST 53 H (5-40) units/L Coagulation 05/28/19 Range/Units 20:55 PT 14.1 (12.2-14.9) Sec. INR 1.08 (0.87-1.13) APTT 26.4 (24.2-36.6) Sec. CBC 05/28/19 Range/Units 20:55 WBC 13.8 H (4.5-11.0) K/mm3 RBC 4.57 (3.65-5.03) M/mm3 Hgb 10.8 L (11.8-15.2) gm/dl Hct 33.8 L (35.5-45.6) % Plt Count 194 (140-440) K/mm3 Lymph # 1.7 (1.2-5.4) K/mm3 [place] # 0.9 H (0.0-0.8) K/mm3 Eos # 0.0 (0.0-0.4) K/mm3 Baso # 0.0 (0.0-0.1) K/mm3 Comprehensive Metabolic Panel 05/28/19 05/29/19 Range/Units 20:55 01:56 Sodium 138 (137-145) mmol/L Potassium 5.4 H 4.3 D (3.6-5.0) mmol/L Chloride 105.6 (98-107) mmol/L Carbon Dioxide 16 L (22-30) mmol/L BUN 62 H (9-20) mg/dL Creatinine 2.9 H (0.8-1.5) mg/dL Glucose 101 H (75-100) mg/dL Calcium 8.5 (8.4-10.2) mg/dL AST 53 H (5-40) units/L ALT 98 H (7-56) units/L Alkaline Phosphatase 176 H (35-129) units/L Total Protein 6.3 (6.3-8.2) g/dL Albumin 3.4 L (3.9-5) g/dL
--- NOTE | 2019-05-29 11:59 | Consultation ---
History of Present Illness Consult date: 05/29/19 Consult reason: atrial fibrillation History of present illness: 53 year old -[place] male presented to the emergency room with left flank pain for the past 24 hours. He was noted to be in atrial fibrillation with a rapid ventricular response hence a cardiology consult. He denies any chest pains palpitations or dizziness. Patient was recently in the hospital and amiodarone dismount and a stress MPI test done was negative for ischemic coronary artery disease Past History Past Medical History: atrial fib, diabetes, heart failure, hypertension, renal failure (Chronic kidney disease) Past Surgical History: Other (Right hip surgery) Social history: smoking (Smokes 2 to 3 cigarettes daily) Family history: diabetes, hypertension, other (Bipolar disorder runs in family) Medications and Allergies Allergies Allergy/AdvReac Type Severity Reaction Status Date / Time No Known Allergies Allergy Verified 05/19/19 17:17 Home Medications Medication Instructions Recorded Confirmed Last Taken Type hydrALAZINE [Apresoline TAB] 50 mg PO QID #120 tablet 11/19/17 05/20/19 Unknown Rx ALBUTEROL Inhaler (OR & NICU) 2 puff IH QID PRN #8.5 gram 05/22/19 Unknown Rx [ProAir HFA Inhaler] Acetaminophen [Acetaminophen TAB] 650 mg PO Q4H PRN #10 tablet 05/22/19 Unknown Rx AtorvaSTATin [Lipitor] 20 mg PO QHS #30 tablet 05/22/19 Unknown Rx Furosemide [Lasix TAB] 40 mg PO BID #60 tablet 05/22/19 Unknown Rx Metoprolol [Lopressor TAB] 50 mg PO BID #60 tablet 05/22/19 Unknown Rx NIFEdipine XL [Procardia Xl] 90 mg PO QDAY #30 tablet 05/22/19 Unknown Rx Nicotine [Habitrol] 14 mg TD QDAY #7 patch 05/22/19 Unknown Rx Sodium Bicarbonate 650 mg PO TID #90 tablet 05/22/19 Unknown Rx cefUROXime [Ceftin] 2 tab PO BID 5 Days #10 tablet 05/22/19 Unknown Rx methylPREDNISolone [Medrol 4MG 1 dose PO DAILY #1 pack 05/22/19 Unknown Rx DOSEPAK (21 tabs)] Active Meds: Active Medications Acetaminophen (Tylenol) 650 mg PO Q6H PRN PRN Reason: Pain MILD(1-3)/Fever >100.5/LUA Diltiazem HCl (Cardizem/D5w 100mg/100ml) 100 mg in 100 mls @ 5 mls/hr IV TITR ALBIN; Protocol Last Titration: 05/29/19 01:25 Dose: 15 mg/hr, 15 mls/hr Documented by: Heparin Sodium/Sodium Chloride (Heparin/ 0.45% Nacl-25,000 Unit/500 Ml) 25,000 unit in 500 mls @ 29 mls/hr IV TITR ALBIN; Protocol Last Admin: 05/29/19 00:42 Dose: 1,450 units/hr, 29 mls/hr Documented by: Magnesium Hydroxide (Milk Of Magnesia) 30 ml PO Q4H PRN PRN Reason: Constipation Morphine Sulfate (Morphine) 2 mg IV Q4H PRN PRN Reason: Pain, Moderate (4-6) Ondansetron HCl (Zofran) 4 mg IV Q8H PRN PRN Reason: Nausea And Vomiting Sodium Chloride (Sodium Chloride Flush Syringe 10 Ml) 10 ml IV BID ALBIN Sodium Chloride (Sodium Chloride Flush Syringe 10 Ml) 10 ml IV PRN PRN PRN Reason: LINE FLUSH Review of Systems All systems: negative Cardiovascular: palpitations, shortness of breath Physical Examination Vital Signs Pulse Resp Pulse Ox 153 H 29 H 98 05/28/19 20:09 05/28/19 20:09 05/28/19 20:09 General appearance: no acute distress, well-nourished HEENT: Positive: PERRL, Mucus Membranes Moist Neck: Positive: neck supple, trachea midline Cardiac: Positive: irregularly irregular, S1/S2, PMI, Laterally Displaced. Negative: Audible Murmur Lungs: Positive: clear to auscultation, Normal Breath Sounds Neuro: Positive: Grossly Intact Abdomen: Positive: Soft, Active Bowel Sounds. Negative: Tender, Distended Male genitourinary: Positive: normal Skin: Positive: Clear Incision: Cardiac Cath Site Musculoskeletal: No Pain, Normal Range of Motion Extremities: Present: normal. Absent: edema Results 05/28/19 20:55 05/29/19 01:56 Cardiac Enzymes 05/28/19 05/28/19 05/28/19 Range/Units 20:55 20:55 20:55 WBC 13.8 H (4.5-11.0) K/mm3 RBC 4.57 (3.65-5.03) M/mm3 Hgb 10.8 L (11.8-15.2) gm/dl Hct 33.8 L (35.5-45.6) % MCV 74 L (84-94) fl MCH 24 L (28-32) pg MCHC 32 (32-34) % RDW 17.3 H (13.2-15.2) % Plt Count 194 (140-440) K/mm3 Lymph % (Auto) 12.3 L (13.4-35.0) % [place] % (Auto) 6.7 (0.0-7.3) % Eos % (Auto) 0.3 (0.0-4.3) % Baso % (Auto) 0.0 (0.0-1.8) % Lymph # 1.7 (1.2-5.4) K/mm3 [place] # 0.9 H (0.0-0.8) K/mm3 Eos # 0.0 (0.0-0.4) K/mm3 Baso # 0.0 (0.0-0.1) K/mm3 Seg Neutrophils % 80.7 H (40.0-70.0) % Seg Neutrophils # 11.1 H (1.8-7.7) K/mm3 PT 14.1 (12.2-14.9) Sec. INR 1.08 (0.87-1.13) APTT 26.4 (24.2-36.6) Sec. Heparin Anti-Xa Level (0.3-0.7) U.I./ml Sodium 138 (137-145) mmol/L Potassium 5.4 H (3.6-5.0) mmol/L Chloride 105.6 (98-107) mmol/L Carbon Dioxide 16 L (22-30) mmol/L Anion Gap 22 mmol/L BUN 62 H (9-20) mg/dL Creatinine 2.9 H (0.8-1.5) mg/dL Estimated GFR 27 ml/min BUN/Creatinine Ratio 21 % Glucose 101 H (75-100) mg/dL Calcium 8.5 (8.4-10.2) mg/dL Total Bilirubin 0.30 (0.1-1.2) mg/dL AST 53 H (5-40) units/L ALT 98 H (7-56) units/L Alkaline Phosphatase 176 H (35-129) units/L Total Protein 6.3 (6.3-8.2) g/dL Albumin 3.4 L (3.9-5) g/dL Albumin/Globulin Ratio 1.2 % Urine Color (Yellow) Urine Turbidity (Clear) Urine pH (5.0-7.0) Ur Specific [place] (1.003-1.030) Urine Protein (Negative) mg/dL Urine Glucose (UA) (Negative) mg/dL Urine Ketones (Negative) mg/dL Urine Blood (Negative) Urine Nitrite (Negative) Urine Bilirubin (Negative) Urine Urobilinogen (<2.0) mg/dL Ur Leukocyte Esterase (Negative) Urine WBC (Auto) (0.0-6.0) /HPF Urine RBC (Auto) (0.0-6.0) /HPF U Epithel Cells (Auto) (0-13.0) /HPF Urine Bacteria (Auto) (Negative) /HPF Urine Mucus /HPF 05/28/19 05/29/19 05/29/19 Range/Units Unknown 01:56 07:11 WBC (4.5-11.0) K/mm3 RBC (3.65-5.03) M/mm3 Hgb (11.8-15.2) gm/dl Hct (35.5-45.6) % MCV (84-94) fl MCH (28-32) pg MCHC (32-34) % RDW (13.2-15.2) % Plt Count (140-440) K/mm3 Lymph % (Auto) (13.4-35.0) % [place] % (Auto) (0.0-7.3) % Eos % (Auto) (0.0-4.3) % Baso % (Auto) (0.0-1.8) % Lymph # (1.2-5.4) K/mm3 [place] # (0.0-0.8) K/mm3 Eos # (0.0-0.4) K/mm3 Baso # (0.0-0.1) K/mm3 Seg Neutrophils % (40.0-70.0) % Seg Neutrophils # (1.8-7.7) K/mm3 PT (12.2-14.9) Sec. INR (0.87-1.13) APTT (24.2-36.6) Sec. Heparin Anti-Xa Level 0.43 (0.3-0.7) U.I./ml Sodium (137-145) mmol/L Potassium 4.3 D (3.6-5.0) mmol/L Chloride (98-107) mmol/L Carbon Dioxide (22-30) mmol/L Anion Gap mmol/L BUN (9-20) mg/dL Creatinine (0.8-1.5) mg/dL Estimated GFR ml/min BUN/Creatinine Ratio % Glucose (75-100) mg/dL Calcium (8.4-10.2) mg/dL Total Bilirubin (0.1-1.2) mg/dL AST (5-40) units/L ALT (7-56) units/L Alkaline Phosphatase (35-129) units/L Total Protein (6.3-8.2) g/dL Albumin (3.9-5) g/dL Albumin/Globulin Ratio % Urine Color Yellow (Yellow) Urine Turbidity Slightly-cloudy (Clear) Urine pH 5.0 (5.0-7.0) Ur Specific [place] 1.014 (1.003-1.030) Urine Protein 100 mg/dl (Negative) mg/dL Urine Glucose (UA) Neg (Negative) mg/dL Urine Ketones Neg (Negative) mg/dL Urine Blood Neg (Negative) Urine Nitrite Neg (Negative) Urine Bilirubin Neg (Negative) Urine Urobilinogen < 2.0 (<2.0) mg/dL Ur Leukocyte Esterase Neg (Negative) Urine WBC (Auto) 2.0 (0.0-6.0) /HPF Urine RBC (Auto) 7.0 (0.0-6.0) /HPF U Epithel Cells (Auto) < 1.0 (0-13.0) /HPF Urine Bacteria (Auto) 1+ (Negative) /HPF Urine Mucus Few /HPF Coagulation 05/28/19 Range/Units 20:55 PT 14.1 (12.2-14.9) Sec. INR 1.08 (0.87-1.13) APTT 26.4 (24.2-36.6) Sec. CBC 05/28/19 Range/Units 20:55 WBC 13.8 H (4.5-11.0) K/mm3 RBC 4.57 (3.65-5.03) M/mm3 Hgb 10.8 L (11.8-15.2) gm/dl Hct 33.8 L (35.5-45.6) % Plt Count 194 (140-440) K/mm3 Lymph # 1.7 (1.2-5.4) K/mm3 [place] # 0.9 H (0.0-0.8) K/mm3 Eos # 0.0 (0.0-0.4) K/mm3 Baso # 0.0 (0.0-0.1) K/mm3 Comprehensive Metabolic Panel 05/28/19 05/29/19 Range/Units 20:55 01:56 Sodium 138 (137-145) mmol/L Potassium 5.4 H 4.3 D (3.6-5.0) mmol/L Chloride 105.6 (98-107) mmol/L Carbon Dioxide 16 L (22-30) mmol/L BUN 62 H (9-20) mg/dL Creatinine 2.9 H (0.8-1.5) mg/dL Glucose 101 H (75-100) mg/dL Calcium 8.5 (8.4-10.2) mg/dL AST 53 H (5-40) units/L ALT 98 H (7-56) units/L Alkaline Phosphatase 176 H (35-129) units/L Total Protein 6.3 (6.3-8.2) g/dL Albumin 3.4 L (3.9-5) g/dL EKG interpretations - Telemetry EKG Rhythm: Atrial Fibrillation Assessment and Plan 1. Atrial fibrillation with a rapid ventricular response 2. Type 2 diabetes mellitus 3. Essential hypertension 4. Left flank pain rule out renal colic 5. Chronic kidney disease stage III 6. Elevated liver enzymes Plan Patient started on an IV Cardizem drip Will initiate IV heparin for full anticoagulation translates into chronic anticoagulation. Check TSH level check echocardiogram
--- NOTE | 2019-05-29 13:01 | Consultation ---
History of Present Illness - History of Present Illness My assessment and plan are as follows chronic kidney disease, patient does appear to be in stage IV chronic kidney disease, adequately counseled and educated regarding the renal related issues all questions are answered advised to make an appointment for follow-up in the office upon discharge Inflammatory changes in the left adrenal gland, needs further evaluation, will need aldosterone as well as plasma renin level, Patient may require MRI of the left adrenal gland He was also advised to follow-up with his primary care physician regarding his abnormal appearance of the left adrenal gland Congestive heart failure Mild hyperkalemia Atrophic left kidney noted in ultrasonogram in November 2017 he will need a follow- up ultrasonogram on that There is no emergent indication for renal placement therapy at this time Continue to work on diet and lifestyle changes Renal prognosis guarded high risk for progression to end-stage renal disease patient educated Follow up in office in a week or 2 upon discharge Patient has been adequately counseled and educated regarding all the renal related issues Renal care plan was discussed with patient Prognosis remains guarded at this time We'll continue to follow and make recommendation from renal standpoint if you have any questions please feel free to contact me at [phone] Ashish Ybarra M.D. [facility] [address] [place] [address] History of presenting illness 53-year-old male who has known history of chronic kidney disease, congestive heart failure atrial for ablation hypertension and diabetes has been admitted here with left-sided flank pain, workup is currently in progress, he was here approximately a week ago and was treated for congestive heart failure and pulmonary edema, Patient has been noted to be in atrial fibrillation with rapid ventricular response with mild hyperkalemia for which she is receiving treatment Creatinine has been noted to be around 2.9 this admission potassium was 5.4. Potassium is 4.3 albumin 3.4 carbonate 16 hemoglobin 10.8 MCV 74 low Old records were also reviewed from early part of May when his creatinine was 3.3 and previously in November 2017 it was 2.0 Due to flank pain CAT scan was done which shows inflammatory changes in the left adrenal gland that requires further follow-up according to the patient he has not seen any physician for the last several years He also has history of uncontrolled hypertension and that has never been well controlled Past medical history significant for Chronic kidney disease: Baseline creatinine has been around 3 as of May 2019 earlier in 2017 it was around 2.0 Congestive heart failure Atrial fibrillation Hypertension diabetes Arthritis status post right hip surgery Chronic tobacco abuse Atrophic left kidney noted on the ultrasonogram in November 2017 Social history, family history: Reviewed Current allergies: Reviewed none Home medication present medication: Reviewed Review of systems positive for left-sided flank pain atrial fibrillation with rapid ventricular response All other review of system negative otherwise Physical examination: General: No acute distress HEENT: Oral mucosa moist no icterus, no facial swelling Neck: Supple no thyromegaly no lymphadenopathy no JVD Chest: Clear to auscultation no crackles rales or wheezes Heart: Regular rate and rhythm S1-S2 heard no S3-S4 Abdomen: Soft nontender no organomegaly no masses palpable no renal bruit no suprapubic masses no CVA tenderness Dermatology: No skin rashes noted Extremity: Less than 1+ peripheral edema, dry skin no petechial rashes Musculoskeletal: No joint effusion noted in knee and ankle area Psych: No evidence of agitation and aggression noted Neurological: Alert awake follows commands no tremors no myoclonus Back: No CVA tenderness Past History Past Medical History: atrial fib, diabetes, heart failure, hypertension, renal failure (Chronic kidney disease) Past Surgical History: Other (Right hip surgery) Social history: smoking (Smokes 2 to 3 cigarettes daily) Family history: diabetes, hypertension, other (Bipolar disorder runs in family) Medications and Allergies Allergies Allergy/AdvReac Type Severity Reaction Status Date / Time No Known Allergies Allergy Verified 05/19/19 17:17 Home Medications Medication Instructions Recorded Confirmed Last Taken Type hydrALAZINE [Apresoline TAB] 50 mg PO QID #120 tablet 11/19/17 05/30/19 Unknown Rx ALBUTEROL Inhaler (OR & NICU) 2 puff IH QID PRN #8.5 gram 05/22/19 05/30/19 Unknown Rx [ProAir HFA Inhaler] Acetaminophen [Acetaminophen TAB] 650 mg PO Q4H PRN #10 tablet 05/22/19 05/30/19 Unknown Rx AtorvaSTATin [Lipitor] 20 mg PO QHS #30 tablet 05/22/19 05/30/19 Unknown Rx Furosemide [Lasix TAB] 40 mg PO BID #60 tablet 05/22/19 05/30/19 Unknown Rx Metoprolol [Lopressor TAB] 50 mg PO BID #60 tablet 05/22/19 05/30/19 Unknown Rx NIFEdipine XL [Procardia Xl] 90 mg PO QDAY #30 tablet 05/22/19 05/30/19 Unknown Rx Nicotine [Habitrol] 14 mg TD QDAY #7 patch 05/22/19 05/30/19 Unknown Rx Sodium Bicarbonate 650 mg PO TID #90 tablet 05/22/19 05/30/19 Unknown Rx cefUROXime [Ceftin] 2 tab PO BID 5 Days #10 tablet 05/22/19 05/30/19 Unknown Rx methylPREDNISolone [Medrol 4MG 1 dose PO DAILY #1 pack 05/22/19 05/30/19 Unknown Rx DOSEPAK (21 tabs)] Active Meds: Active Medications Acetaminophen (Tylenol) 650 mg PO Q6H PRN PRN Reason: Pain MILD(1-3)/Fever >100.5/LUA Diltiazem HCl (Cardizem/D5w 100mg/100ml) 100 mg in 100 mls @ 5 mls/hr IV TITR ALBIN; Protocol Last Titration: 05/29/19 01:25 Dose: 15 mg/hr, 15 mls/hr Documented by: Heparin Sodium/Sodium Chloride (Heparin/ 0.45% Nacl-25,000 Unit/500 Ml) 25,000 unit in 500 mls @ 29 mls/hr IV TITR ALBIN; Protocol Last Admin: 05/29/19 00:42 Dose: 1,450 units/hr, 29 mls/hr Documented by: Magnesium Hydroxide (Milk Of Magnesia) 30 ml PO Q4H PRN PRN Reason: Constipation Morphine Sulfate (Morphine) 2 mg IV Q4H PRN PRN Reason: Pain, Moderate (4-6) Ondansetron HCl (Zofran) 4 mg IV Q8H PRN PRN Reason: Nausea And Vomiting Sodium Chloride (Sodium Chloride Flush Syringe 10 Ml) 10 ml IV BID ALBIN Sodium Chloride (Sodium Chloride Flush Syringe 10 Ml) 10 ml IV PRN PRN PRN Reason: LINE FLUSH Exam - Vital Signs Vital signs: Vital Signs Pulse Resp Pulse Ox 153 H 29 H 98 05/28/19 20:09 05/28/19 20:09 05/28/19 20:09 Results - Lab Results 05/30/19 04:48 05/30/19 04:48 Most recent lab results Calcium 8.5 mg/dL (8.4-10.2) 05/28/19 20:55
[2019-05-29] MEDS ORDERED: HEPARIN/ 0.45% NACL DRIP 25,000 UNIT/500 ML BAG ONE (18:03)
--- NOTE | 2019-05-29 21:11 | Ultrasound Report ---
Retroperitoneal Ultrasound History: renal failure , . Comparison: CT abdomen/pelvis, 05/28/2019 Procedure: Real time ultrasound was utilized to evaluate. Findings: The right kidney measures 9.8 cm and the left kidney measures 9.7cm. Both kidneys demonstra te normal echogenicity and normal cortical thickness. No hydronephrosis or nephrolithiasis is seen. N o renal masses are seen. No perinephric fluid collections are identified. No ureteral calculi are n oted. The urinary bladder is unremarkable. Neither adrenal gland could be identified. Impression: Normal bilateral renal ultrasound. The etiology for the left suprarenal inflammatory vazquez ge is not identified on this exam. Signer Name: Cari Grissom MD Signed: 05/29/2019 9:07 PM Workstation Name: [id number]
[2019-05-30] MEDS: dilTIAZem/D5W 100 MG/100 ML BAG IV SCH (02:45)
[2019-05-30 05:14] LABS: Basophils # (Auto) 0.1 K/mm3 (0.0-0.1); Basophils % (Auto) 0.5 % (0.0-1.8); Eosinophils % (Auto) 0.2 % (0.0-4.3); Hematocrit 32.6 % (35.5-45.6); Hemoglobin 10.4 gm/dl (11.8-15.2); Lymphocytes # (Auto) 1.4 K/mm3 (1.2-5.4); Lymphocytes % (Auto) 12.1 % (13.4-35.0); Mean Corpuscular HGB Conc 32 % (32-34); Mean Corpuscular Volume 74 fl (84-94); Monocytes # (Auto) 0.7 K/mm3 (0.0-0.8); Monocytes % (Auto) 6.6 % (0.0-7.3); Platelet Count 172 K/mm3 (140-440); Red Blood Count 4.43 M/mm3 (3.65-5.03); Red Cell Distribution Width 17.8 % (13.2-15.2)
[2019-05-30 05:25] LABS: INR 1.01 (0.87-1.13)
[2019-05-30 05:42] LABS: Partial Thromboplastin Time 69.1 Sec. (24.2-36.6)
--- NOTE | 2019-05-30 10:28 | Progress Note ---
Assessment and Plan Assessment and plan: Chronic kidney disease: Baseline creatinine has been around 3 as of May 2019 earlier in 2017 it was around 2.0. Nephrology following Acute diastolic heart failure. Echocardiogram November 2017 reveals EF of 60-65%. Cardiology following. Atrial fibrillation with RVR. Rate is controlled currently. Patient still on IV Cardizem drip. Cardiology likely to transitioned to by mouth Cardizem. Hypertension. Continue home antihypertensive medications Diabetes mellitus type II. Continue Accu-Cheks and sliding scale as. Osteoarthritis status post right hip surgery Chronic tobacco abuse. Patient will be counseled on tobacco cessation prior to discharge. Atrophic left kidney noted on the ultrasonogram in November 2017 History Interval history: No new issues overnight. Rate is controllee. Hospitalist Physical - Constitutional Vitals: Temp Pulse Resp BP Pulse Ox 98.5 F 101 H 14 121/78 96 05/28/19 20:12 05/30/19 08:00 05/30/19 08:00 05/30/19 08:00 05/30/19 08:00 General appearance: Present: no acute distress, well-nourished - EENT Eyes: Present: PERRL, EOM intact ENT: hearing intact, clear oral mucosa, dentition normal - Neck Neck: Present: supple, normal ROM - Respiratory Respiratory effort: normal Respiratory: bilateral: CTA - Cardiovascular Rhythm: regular Heart Sounds: Present: S1 & S2. Absent: gallop, rub - Extremities Extremities: no ischemia, No edema, Full ROM - Abdominal General gastrointestinal: soft, non-tender, non-distended, normal bowel sounds - Integumentary Integumentary: Present: clear, warm, dry - Neurologic Neurologic: CNII-XII intact, moves all extremities Results - Labs CBC & Chem 7: 05/30/19 04:48 05/30/19 04:48 Labs: Laboratory Last Values WBC 11.4 K/mm3 (4.5-11.0) H 05/30/19 04:48 RBC 4.43 M/mm3 (3.65-5.03) 05/30/19 04:48 Hgb 10.4 gm/dl (11.8-15.2) L 05/30/19 04:48 Hct 32.6 % (35.5-45.6) L 05/30/19 04:48 MCV 74 fl (84-94) L 05/30/19 04:48 MCH 23 pg (28-32) L 05/30/19 04:48 MCHC 32 % (32-34) 05/30/19 04:48 RDW 17.8 % (13.2-15.2) H 05/30/19 04:48 Plt Count 172 K/mm3 (140-440) 05/30/19 04:48 Lymph % (Auto) 12.1 % (13.4-35.0) L 05/30/19 04:48 [place] % (Auto) 6.6 % (0.0-7.3) 05/30/19 04:48 Eos % (Auto) 0.2 % (0.0-4.3) 05/30/19 04:48 Baso % (Auto) 0.5 % (0.0-1.8) 05/30/19 04:48 Lymph # 1.4 K/mm3 (1.2-5.4) 05/30/19 04:48 [place] # 0.7 K/mm3 (0.0-0.8) 05/30/19 04:48 Eos # 0.0 K/mm3 (0.0-0.4) 05/30/19 04:48 Baso # 0.1 K/mm3 (0.0-0.1) 05/30/19 04:48 Seg Neutrophils % 80.6 % (40.0-70.0) H 05/30/19 04:48 Seg Neutrophils # 9.2 K/mm3 (1.8-7.7) H 05/30/19 04:48 PT 13.4 Sec. (12.2-14.9) 05/30/19 04:48 INR 1.01 (0.87-1.13) 05/30/19 04:48 APTT 69.1 Sec. (24.2-36.6) H* 05/30/19 04:48 Heparin Anti-Xa Level 0.33 U.I./ml (0.3-0.7) 05/30/19 04:48 Sodium 140 mmol/L (137-145) 05/30/19 04:48 Potassium 3.9 mmol/L (3.6-5.0) 05/30/19 04:48 Chloride 106.4 mmol/L (98-107) 05/30/19 04:48 Carbon Dioxide 21 mmol/L (22-30) L 05/30/19 04:48 Anion Gap 17 mmol/L 05/30/19 04:48 BUN 47 mg/dL (9-20) H 05/30/19 04:48 Creatinine 2.5 mg/dL (0.8-1.5) H 05/30/19 04:48 Estimated GFR 33 ml/min 05/30/19 04:48 BUN/Creatinine Ratio 19 % 05/30/19 04:48 Glucose 117 mg/dL (75-100) H 05/30/19 04:48 Uric Acid 8.4 mg/dL (3.5-7.6) H 05/29/19 15:39 Calcium 8.0 mg/dL (8.4-10.2) L 05/30/19 04:48 Total Bilirubin 0.30 mg/dL (0.1-1.2) 05/28/19 20:55 AST 53 units/L (5-40) H 05/28/19 20:55 ALT 98 units/L (7-56) H 05/28/19 20:55 Alkaline Phosphatase 176 units/L (35-129) H 05/28/19 20:55 Total Protein 6.3 g/dL (6.3-8.2) 05/28/19 20:55 Albumin 3.4 g/dL (3.9-5) L 05/28/19 20:55 Albumin/Globulin Ratio 1.2 % 05/28/19 20:55 Urine Color Yellow (Yellow) 05/28/19 Unknown Urine Turbidity Slightly-cloudy (Clear) 05/28/19 Unknown Urine pH 5.0 (5.0-7.0) 05/28/19 Unknown Ur Specific [place] 1.014 (1.003-1.030) 05/28/19 Unknown Urine Protein 100 mg/dl mg/dL (Negative) 05/28/19 Unknown Urine Glucose (UA) Neg mg/dL (Negative) 05/28/19 Unknown Urine Ketones Neg mg/dL (Negative) 05/28/19 Unknown Urine Blood Neg (Negative) 05/28/19 Unknown Urine Nitrite Neg (Negative) 05/28/19 Unknown Urine Bilirubin Neg (Negative) 05/28/19 Unknown Urine Urobilinogen < 2.0 mg/dL (<2.0) 05/28/19 Unknown Ur Leukocyte Esterase Neg (Negative) 05/28/19 Unknown Urine WBC (Auto) 2.0 /HPF (0.0-6.0) 05/28/19 Unknown Urine RBC (Auto) 7.0 /HPF (0.0-6.0) 05/28/19 Unknown U Epithel Cells (Auto) < 1.0 /HPF (0-13.0) 05/28/19 Unknown Urine Bacteria (Auto) 1+ /HPF (Negative) 05/28/19 Unknown Urine Mucus Few /HPF 05/28/19 Unknown Active Medications - Current Medications Current Medications: Generic Name Dose Route Start Last Admin Trade Name Freq PRN Reason Stop Dose Admin Acetaminophen 650 mg 05/29/19 00:45 Tylenol PO Q6H PRN Pain MILD(1-3)/Fever >100.5/LUA Diltiazem HCl 100 mg in 100 mls @ 5 mls/hr 05/28/19 23:45 05/30/19 02:45 Cardizem/D5w 100mg/100ml IV 15 mg/hr TITR ALBIN 15 mls/hr Administration Protocol 5 MG/HR Heparin Sodium/Sodium Chloride 25,000 unit in 500 mls @ 29 mls/hr 05/29/19 01:00 05/29/19 00:42 Heparin/ 0.45% Nacl-25,000 Unit/500 Ml IV 1,450 units/hr TITR ALBIN 29 mls/hr Administration Protocol 1,450 UNITS/HR Magnesium Hydroxide 30 ml 05/29/19 00:45 Milk Of Magnesia PO Q4H PRN Constipation Morphine Sulfate 2 mg 05/29/19 00:45 Morphine IV Q4H PRN Pain, Moderate (4-6) Ondansetron HCl 4 mg 05/29/19 00:45 Zofran IV Q8H PRN Nausea And Vomiting Sodium Chloride 10 ml 05/29/19 10:00 05/30/19 05:54 Sodium Chloride Flush Syringe 10 Ml IV 10 ml BID ALBIN Administration Sodium Chloride 10 ml 05/29/19 00:45 Sodium Chloride Flush Syringe 10 Ml IV PRN PRN LINE FLUSH
[2019-05-30] MEDS ORDERED: HEPARIN/ 0.45% NACL DRIP 25,000 UNIT/500 ML BAG ONE (10:51)
--- NOTE | 2019-05-30 11:46 | Progress Note ---
Subjective Interval history: Patient was seen today for follow-up on multiple renal related issues Events of this hospitalization were noted He has much better understanding of his renal issues now Interdisciplinary notes were also reviewed Vitals intake output medications were reviewed Past medical history: Reviewed Family, social history: Reviewed Allergies: Reviewed Physical examination General: No acute distress Vitals: Reviewed HEENT: Oral mucosa moist no icterus Neck: Supple no thyromegaly nodular mass or JVD Chest: Clear to auscultation anteriorly Heart: Regular rate and rhythm S1-S2 heard no S3-S4 Abdomen: Soft nontender no suprapubic masses no organomegaly Extremity: Dry skin less than 1+ edema Psych: No evidence of any agitation and aggression noted Derm: No petechial rash Assessment and plan: Renal failure creatinine is currently at 2.5 which was 2.9 yesterday Urinalysis shows 100 mg protein in the random specimen 7 red blood cells Will order for vasculitic workup, he does not have any history of epistaxis or skin rash however Hyperkalemia currently better was 5.4 currently 3.9 Mild anemia hemoglobin currently holding at 10.4 was 10.8 yesterday he has some evidence of microcytic hypochromic Friday and elevated RDW possibly may have iron deficiency Hypertension: Relatively better controlled mild tachycardia: We will need adjustment of blood pressure medications Renal ultrasonogram obtained yesterday; is an unremarkable study He has inflammatory changes of his adrenal gland significance of which is unclear, definitely will need follow-up in 6 weeks and possibly consider evaluation by an oncologist Aldosterone and plasma renin has been ordered He has long-standing history of hypertension Multiple comorbidities including diastolic heart failure treatment patient with rapid ventricular response osteoarthritis chronic tobacco use All renal related issues were discussed with the patient, patient does exhibit good understanding, lab results were also discussed with patient in simple Norwegian Prognosis: Guarded We'll continue to follow and make recommendation from renal standpoint Objective - Vital Signs Vital signs: Vital Signs - 12hr 05/30/19 05/30/19 05/30/19 00:00 00:16 00:18 Pulse Rate Respiratory 17 14 17 Rate Blood Pressure 151/107 144/98 O2 Sat by Pulse 95 93 95 Oximetry 05/30/19 05/30/19 05/30/19 01:00 02:00 03:00 Pulse Rate 99 H 109 H 95 H Respiratory 16 25 H 35 H Rate Blood Pressure 144/98 131/80 143/90 O2 Sat by Pulse 91 97 96 Oximetry 05/30/19 05/30/19 05/30/19 04:00 05:00 06:00 Pulse Rate 99 H 103 H 110 H Respiratory 15 16 24 Rate Blood Pressure 143/90 150/95 146/102 O2 Sat by Pulse 97 96 97 Oximetry 05/30/19 05/30/19 05/30/19 07:00 08:00 09:00 Pulse Rate 89 101 H 93 H Respiratory 17 14 12 Rate Blood Pressure 160/97 121/78 139/79 O2 Sat by Pulse 98 96 98 Oximetry 05/30/19 10:00 Pulse Rate 102 H Respiratory 20 Rate Blood Pressure 146/99 O2 Sat by Pulse 98 Oximetry - Lab 05/30/19 04:48 05/30/19 04:48 Most recent lab results Calcium 8.0 mg/dL (8.4-10.2) L 05/30/19 04:48 Medications & Allergies - Medications Allergies/Adverse Reactions: Allergies No Known Allergies Allergy (Verified 05/19/19 17:17) Home Medications: Home Medications Medication Instructions Recorded Confirmed Last Taken Type hydrALAZINE [Apresoline TAB] 50 mg PO QID #120 tablet 11/19/17 05/30/19 Unknown Rx ALBUTEROL Inhaler (OR & NICU) 2 puff IH QID PRN #8.5 gram 05/22/19 05/30/19 Unknown Rx [ProAir HFA Inhaler] Acetaminophen [Acetaminophen TAB] 650 mg PO Q4H PRN #10 tablet 05/22/19 05/30/19 Unknown Rx AtorvaSTATin [Lipitor] 20 mg PO QHS #30 tablet 05/22/19 05/30/19 Unknown Rx Furosemide [Lasix TAB] 40 mg PO BID #60 tablet 05/22/19 05/30/19 Unknown Rx Metoprolol [Lopressor TAB] 50 mg PO BID #60 tablet 05/22/19 05/30/19 Unknown Rx NIFEdipine XL [Procardia Xl] 90 mg PO QDAY #30 tablet 05/22/19 05/30/19 Unknown Rx Nicotine [Habitrol] 14 mg TD QDAY #7 patch 05/22/19 05/30/19 Unknown Rx Sodium Bicarbonate 650 mg PO TID #90 tablet 05/22/19 05/30/19 Unknown Rx cefUROXime [Ceftin] 2 tab PO BID 5 Days #10 tablet 05/22/19 05/30/19 Unknown Rx methylPREDNISolone [Medrol 4MG 1 dose PO DAILY #1 pack 05/22/19 05/30/19 Unknown Rx DOSEPAK (21 tabs)] Active Medications: Generic Name Dose Route Start Last Admin Trade Name Freq PRN Reason Stop Dose Admin Acetaminophen 650 mg 05/29/19 00:45 Tylenol PO Q6H PRN Pain MILD(1-3)/Fever >100.5/LUA Diltiazem HCl 100 mg in 100 mls @ 5 mls/hr 05/28/19 23:45 05/30/19 02:45 Cardizem/D5w 100mg/100ml IV 15 mg/hr TITR ALBIN 15 mls/hr Administration Protocol 5 MG/HR Heparin Sodium/Sodium Chloride 25,000 unit in 500 mls @ 29 mls/hr 05/29/19 01:00 05/29/19 00:42 Heparin/ 0.45% Nacl-25,000 Unit/500 Ml IV 1,450 units/hr TITR ALBIN 29 mls/hr Administration Protocol 1,450 UNITS/HR Magnesium Hydroxide 30 ml 05/29/19 00:45 Milk Of Magnesia PO Q4H PRN Constipation Morphine Sulfate 2 mg 05/29/19 00:45 Morphine IV Q4H PRN Pain, Moderate (4-6) Ondansetron HCl 4 mg 05/29/19 00:45 Zofran IV Q8H PRN Nausea And Vomiting Sodium Chloride 10 ml 05/29/19 10:00 05/30/19 05:54 Sodium Chloride Flush Syringe 10 Ml IV 10 ml BID ALBIN Administration Sodium Chloride 10 ml 05/29/19 00:45 Sodium Chloride Flush Syringe 10 Ml IV PRN PRN LINE FLUSH
--- NOTE | 2019-05-30 12:11 | Progress Note ---
Assessment and Plan 1. Atrial fibrillation with a controlled ventricular response 2. Type 2 diabetes mellitus 3. Essential hypertension 4. Left flank pain rule out renal colic 5. Chronic kidney disease stage III 6. Elevated liver enzymes Plan Stop IV Heparin and start Xarelto, Discontinue IV Cardizem start oral Cardizem. Check TSH level check echocardiogram Subjective Date of service: 05/30/19 Interval history: No cardiac symptoms Objective Vital Signs Pulse Resp BP Pulse Ox 05/30/19 11:00 98 H 22 150/100 96 05/30/19 10:00 102 H 20 146/99 98 05/30/19 09:00 93 H 12 139/79 98 05/30/19 08:00 101 H 14 121/78 96 05/30/19 07:00 89 17 160/97 98 05/30/19 06:00 110 H 24 146/102 97 05/30/19 05:00 103 H 16 150/95 96 05/30/19 04:00 99 H 15 143/90 97 05/30/19 03:00 95 H 35 H 143/90 96 05/30/19 02:00 109 H 25 H 131/80 97 05/30/19 01:00 99 H 16 144/98 91 05/30/19 00:18 17 95 05/30/19 00:16 14 144/98 93 05/30/19 00:00 17 151/107 95 05/29/19 23:00 101 H 12 141/102 97 05/29/19 22:00 110 H 21 146/108 95 05/29/19 21:00 95 H 11 L 146/108 97 05/29/19 20:00 105 H 17 151/85 95 05/29/19 19:00 99 H 33 H 154/113 95 05/29/19 18:41 103 H 05/29/19 18:01 118 H 15 154/113 96 05/29/19 17:00 102 H 35 H 148/94 93 05/29/19 16:10 109 H 19 99 05/29/19 16:01 115 H 21 144/99 99 05/29/19 15:31 119 H 140/98 98 05/29/19 15:01 116 H 140/98 98 05/29/19 14:31 119 H 134/99 94 05/29/19 14:01 118 H 140/102 95 05/29/19 13:31 117 H 33 H 134/99 96 05/29/19 13:00 94 H 21 134/99 92 05/29/19 12:31 93 H 26 H 149/106 94 - Physical Examination HEENT: Positive: PERRL, Mucus Membranes Moist Neck: Positive: neck supple, trachea midline. Negative: JVD/HJR Cardiac: Positive: irregularly irregular, S1/S2, PMI, Laterally Displaced Lungs: Positive: clear to auscultation, No Wheeze, Rales, Rhonchi Neuro: Positive: Grossly Intact Abdomen: Positive: Soft, Active Bowel Sounds. Negative: Tender, Distended Skin: Positive: Clear Incision: Cardiac Cath Site Musculoskeletal: No Pain, Normal Range of Motion Extremities: Present: normal. Absent: edema - Labs and Meds Coagulation 05/30/19 Range/Units 04:48 PT 13.4 (12.2-14.9) Sec. INR 1.01 (0.87-1.13) APTT 69.1 H* (24.2-36.6) Sec. CBC 05/30/19 Range/Units 04:48 WBC 11.4 H (4.5-11.0) K/mm3 RBC 4.43 (3.65-5.03) M/mm3 Hgb 10.4 L (11.8-15.2) gm/dl Hct 32.6 L (35.5-45.6) % Plt Count 172 (140-440) K/mm3 Lymph # 1.4 (1.2-5.4) K/mm3 [place] # 0.7 (0.0-0.8) K/mm3 Eos # 0.0 (0.0-0.4) K/mm3 Baso # 0.1 (0.0-0.1) K/mm3 Comprehensive Metabolic Panel 05/30/19 Range/Units 04:48 Sodium 140 (137-145) mmol/L Potassium 3.9 (3.6-5.0) mmol/L Chloride 106.4 (98-107) mmol/L Carbon Dioxide 21 L (22-30) mmol/L BUN 47 H (9-20) mg/dL Creatinine 2.5 H (0.8-1.5) mg/dL Glucose 117 H (75-100) mg/dL Calcium 8.0 L (8.4-10.2) mg/dL
[2019-05-30] MEDS ORDERED: ONDANSETRON 4 MG/2 ML INJ ONE (13:36)
[2019-05-30] MEDS ORDERED: MORPHINE 2 MG/1 ML INJ ONE (13:36)
[2019-05-30] MEDS: MORPHINE 2 MG/1 ML INJ IV PRN ×2 (13:38→18:07)
[2019-05-30] MEDS: dilTIAZem 60 MG TAB PO SCH (17:03)
[2019-05-30] MEDS: RIVAROXABAN 15 MG TAB PO SCH (17:03)
[2019-05-30] MEDS ORDERED: hydrALAZINE 20 MG/1 ML INJ IV PRN (18:00)
[2019-05-30 18:37] LABS: Hepatitis B Surface Antigen Non-Reactive (Negative); Hepatitis C Virus Antibody Non-Reactive (NonReactive)
[2019-05-31] MEDS: dilTIAZem 60 MG TAB PO SCH ×3 (01:00→12:24)
[2019-05-31 08:23] LABS: Hematocrit 33.3 % (35.5-45.6); Hemoglobin 10.5 gm/dl (11.8-15.2)
--- NOTE | 2019-05-31 09:31 | Progress Note ---
Assessment and Plan Paroxysmal Afib previously treated with warfarin, INR of 1.1 on presentation; now on Xarelto for oral anticoagulation Left flank pain -chief complaint Essential hypertension Mild Dilated cardiomyopathy EF 40-45% by echo at [facility] 04/2019 [facility] 05/22/19 -no ischemia Chronic renal disease Elevated LFTs Hx of right upper lung mass Subjective Date of service: 05/31/19 Interval history: Rapid afib seen on telemetry this morning. Patient remains asymptomatic. Objective Vital Signs Temp Pulse Pulse Pulse Pulse Resp BP 05/31/19 06:07 71 133/101 05/31/19 05:26 98.5 F 71 18 133/101 05/31/19 01:00 56 L 140/86 05/31/19 00:18 98.1 F 56 L 18 140/86 05/30/19 22:45 92 H 134 H 134 H 19 05/30/19 22:00 92 H 05/30/19 19:51 98.4 F 92 H 18 114/72 05/30/19 18:00 135 H 167/100 05/30/19 17:56 56 L 119/79 05/30/19 17:03 134 H 167/100 05/30/19 17:00 135 H 05/30/19 16:57 67 167/100 05/30/19 16:10 65 16 05/30/19 16:03 98.1 F 145 H 21 05/30/19 16:00 134 H 134 H 134 H 19 05/30/19 15:30 112 H 18 133/86 05/30/19 15:00 147 H 17 128/81 05/30/19 14:38 98.5 F 122 H 16 05/30/19 14:00 120 H 15 05/30/19 13:00 98 H 29 H 05/30/19 12:20 105 H 22 05/30/19 11:00 98 H 22 150/100 05/30/19 10:00 102 H 20 146/99 BP Pulse Ox 05/31/19 06:07 05/31/19 05:26 94 05/31/19 01:00 05/31/19 00:18 95 05/30/19 22:45 99 05/30/19 22:00 05/30/19 19:51 99 05/30/19 18:00 05/30/19 17:56 98 05/30/19 17:03 05/30/19 17:00 05/30/19 16:57 96 05/30/19 16:10 95 05/30/19 16:03 167/100 05/30/19 16:00 99 05/30/19 15:30 91 05/30/19 15:00 90 05/30/19 14:38 133/98 93 05/30/19 14:00 99 05/30/19 13:00 96 05/30/19 12:20 97 05/30/19 11:00 96 05/30/19 10:00 98 - Physical Examination General: No Apparent Distress HEENT: Positive: PERRL Neck: Positive: trachea midline Cardiac: Positive: irregularly irregular Lungs: Positive: Decreased Breath Sounds Neuro: Positive: Grossly Intact Extremities: Absent: edema - Labs and Meds CBC 05/31/19 Range/Units 07:08 Hgb 10.5 L (11.8-15.2) gm/dl Hct 33.3 L (35.5-45.6) % Plt Count 164 (140-440) K/mm3
[2019-05-31] MEDS ORDERED: RIVAROXABAN 10 MG TAB PO SCH (10:00)
[2019-05-31] MEDS: MORPHINE 2 MG/1 ML INJ IV PRN (10:25)
--- NOTE | 2019-05-31 10:32 | Progress Note ---
Assessment and Plan # KRYS: creatinine 2.9->2.5 this AM. Suspect pre-renal injury in setting of vomiting, potential tubular injury as well given RVR and potential for renal hypoperfusion. Mild proteinuria noted on UA, minimal hematuria. - follow up ordered vasculitic workup, although of low suspicion - continue PO hydration as tolerated - supportive measures per primary; cardiology notes reviewed - no indication for renal replacement therapy - no indication for biopsy at this time - avoid nephrotoxins - renally dose meds - daily renal labs # HTN: BP at goal # Anemia: microcytic, would check for iron deficiency # Adrenal Gland Inflammation: noted on ultrasound, unclear significance. Follow up in 6 weeks; checking renin/leandra # Diastolic Heart Failure # Atrial Fibrillation with RVR # Chronic Tobacco Use We'll continue to follow and make recommendation from renal standpoint Subjective Date of service: 05/31/19 Interval history: No acute events noted overnight. Feels well this AM other than abdominal pain. Did eat and drink well. No dyspnea. Good urine output noted. Objective - Exam Narrative Exam: General: No acute distress noted HEENT: Oral mucosa moist Neck: Supple Chest: Clear to auscultation anteriorly Heart: Regular rate and rhythm, normal S1-S2 Abdomen: Soft nontender Extremity: no edema Psych: No evidence of any agitation and aggression noted Neuro: no focal deficits Derm: No petechial rash - Vital Signs Vital signs: Vital Signs - 12hr 05/30/19 05/31/19 05/31/19 22:45 00:18 01:00 Temperature 98.1 F Pulse Rate 56 L 56 L Pulse Rate [ 92 H Apical] Pulse Rate [ 134 H Left Radial] Pulse Rate [ 134 H Right Radial] Respiratory 19 18 Rate Blood Pressure 140/86 140/86 O2 Sat by Pulse 99 95 Oximetry 05/31/19 05/31/19 05:26 06:07 Temperature 98.5 F Pulse Rate 71 71 Pulse Rate [ Apical] Pulse Rate [ Left Radial] Pulse Rate [ Right Radial] Respiratory 18 Rate Blood Pressure 133/101 133/101 O2 Sat by Pulse 94 Oximetry - Lab 05/31/19 07:08 05/30/19 04:48 Most recent lab results Calcium 8.0 mg/dL (8.4-10.2) L 05/30/19 04:48 Medications & Allergies - Medications Allergies/Adverse Reactions: Allergies No Known Allergies Allergy (Verified 05/19/19 17:17) Home Medications: Home Medications Medication Instructions Recorded Confirmed Last Taken Type hydrALAZINE [Apresoline TAB] 50 mg PO QID #120 tablet 11/19/17 05/30/19 Unknown Rx ALBUTEROL Inhaler (OR & NICU) 2 puff IH QID PRN #8.5 gram 05/22/19 05/30/19 Unknown Rx [ProAir HFA Inhaler] Acetaminophen [Acetaminophen TAB] 650 mg PO Q4H PRN #10 tablet 05/22/19 05/30/19 Unknown Rx AtorvaSTATin [Lipitor] 20 mg PO QHS #30 tablet 05/22/19 05/30/19 Unknown Rx Furosemide [Lasix TAB] 40 mg PO BID #60 tablet 05/22/19 05/30/19 Unknown Rx Metoprolol [Lopressor TAB] 50 mg PO BID #60 tablet 05/22/19 05/30/19 Unknown Rx NIFEdipine XL [Procardia Xl] 90 mg PO QDAY #30 tablet 05/22/19 05/30/19 Unknown Rx Nicotine [Habitrol] 14 mg TD QDAY #7 patch 05/22/19 05/30/19 Unknown Rx Sodium Bicarbonate 650 mg PO TID #90 tablet 05/22/19 05/30/19 Unknown Rx cefUROXime [Ceftin] 2 tab PO BID 5 Days #10 tablet 05/22/19 05/30/19 Unknown Rx methylPREDNISolone [Medrol 4MG 1 dose PO DAILY #1 pack 05/22/19 05/30/19 Unknown Rx DOSEPAK (21 tabs)] Active Medications: Generic Name Dose Route Start Last Admin Trade Name [place] PRN Reason Stop Dose Admin Acetaminophen 650 mg 05/29/19 00:45 Tylenol PO Q6H PRN Pain MILD(1-3)/Fever >100.5/LUA Diltiazem HCl 60 mg 05/30/19 18:00 05/31/19 06:07 Cardizem PO 60 mg Q6HR ALBIN Administration Hydralazine HCl 10 mg 05/30/19 18:00 05/30/19 18:00 Apresoline IV 10 mg Q6HR PRN Administration Blood Pressure Magnesium Hydroxide 30 ml 05/29/19 00:45 Milk Of Magnesia PO Q4H PRN Constipation Morphine Sulfate 2 mg 05/29/19 00:45 05/31/19 10:25 Morphine IV 2 mg Q4H PRN Administration Pain, Moderate (4-6) Ondansetron HCl 4 mg 05/29/19 00:45 05/30/19 13:38 Zofran IV 4 mg Q8H PRN Administration Nausea And Vomiting Rivaroxaban 15 mg 05/30/19 17:00 05/30/19 17:03 Xarelto PO 15 mg QDAY@1700 ALBIN Administration Sodium Chloride 10 ml 05/29/19 10:00 05/31/19 10:25 Sodium Chloride Flush Syringe 10 Ml IV 10 ml BID ALBIN Administration Sodium Chloride 10 ml 05/29/19 00:45 Sodium Chloride Flush Syringe 10 Ml IV PRN PRN LINE FLUSH
[2019-05-31] MEDS ORDERED: METOPROLOL TARTRATE 5 MG/5 ML INJ IV PRN (14:11)
--- NOTE | 2019-05-31 14:38 | Progress Note ---
Assessment and Plan (1) Hyperkalemia Current Visit: Yes Status: Acute Plan to address problem: Improved (2) Atrial fibrillation with RVR Current Visit: Yes Status: Acute Plan to address problem: Resolved (3)KRYS on CKD Current Visit: Yes Status: Acute Plan to address problem: Cr =2.5 Baseline Cr in 2018 1.8 Has underlying CKD (4) HTN (hypertension) Current Visit: No Status: Chronic Qualifiers: Hypertension type: essential hypertension Qualified Code(s): I10 - Essential (primary) hypertension Plan to address problem: Blood pressure stable. Will monitor vital signs. (5) DVT prophylaxis Current Visit: No Status: Acute Plan to address problem: Patient currently on heparin drip. (6) Full code status Current Visit: Yes Status: Acute Discharge planning issues: Can be discharged if Cr is around 1.8 or if nephrology clears. Subjective Date of service: 05/31/19 Principal diagnosis: Afib with rvr KRYS Interval history: Patient is a 53-year-old male with known history of CKD, CHF, A. fib, hypertension, diabetes mellitus. Presents to the emergency room today complaining of left flank pain which has been ongoing since last night. He denies any fever, no chills, no nausea vomiting, no hematuria or dysuria. He denies any history of kidney stones. Patient was seen here about a week ago was treated for pulmonary edema. Upon arrival in the emergency room evaluation shows that patient was in atrial fibrillation with RVR, was also found to be slightly hyperkalemic. Patient was placed on IV Cardizem drip. DOing better Objective - Constitutional Vitals: Vital Signs - 12hr 05/31/19 05/31/19 05/31/19 05:26 06:07 10:00 Temperature 98.5 F Pulse Rate 71 71 113 H Respiratory 18 Rate Blood Pressure 133/101 133/101 O2 Sat by Pulse 94 Oximetry General appearance: Present: no acute distress, well-nourished - EENT Eyes: PERRL, EOM intact ENT: hearing intact, clear oral mucosa Ears: bilateral: normal - Neck Neck: supple, normal ROM - Respiratory Respiratory effort: normal Respiratory: bilateral: CTA - Breasts Breasts: normal - Cardiovascular Rhythm: regular Heart Sounds: Present: S1 & S2. Absent: gallop, rub Extremities: pulses intact, No edema, normal color, Full ROM - Gastrointestinal General gastrointestinal: Present: soft, non-tender, non-distended, normal bowel sounds - Genitourinary Male genitourinary: normal - Integumentary Integumentary: clear, warm, dry - Musculoskeletal Musculoskeletal: 1, strength equal bilaterally - Neurologic Neurologic: moves all extremities - Psychiatric Psychiatric: memory intact, appropriate mood/affect, intact judgment & insight - Labs CBC & Chem 7: 05/31/19 07:08 05/30/19 04:48 Labs: Abnormal lab results 05/30/19 05/31/19 Range/Units 17:51 07:08 Hgb 10.5 L (11.8-15.2) gm/dl Hct 33.3 L (35.5-45.6) % Heparin Anti-Xa Level 1.71 H (0.3-0.7) U.I./ml
[2019-05-31] MEDS: FUROSEMIDE 40 MG TAB PO SCH (17:31)
[2019-05-31] MEDS: RIVAROXABAN 15 MG TAB PO SCH (17:31)
[2019-05-31] MEDS: METOPROLOL TARTRATE 50 MG TAB PO SCH (21:24)
[2019-06-01] MEDS: FUROSEMIDE 40 MG TAB PO SCH ×2 (05:58→18:52)
[2019-06-01 09:02] LABS: Calcium 8.8 mg/dL (8.4-10.2)
[2019-06-01] MEDS ORDERED: SODIUM POLYSTYRENE 15 GM/60 ML ORAL LIQD PO NR (09:16)
[2019-06-01] MEDS: METOPROLOL TARTRATE 50 MG TAB PO SCH (10:04)
[2019-06-01] MEDS: NIFEdipine XL 90 MG TAB PO SCH (10:05)
--- NOTE | 2019-06-01 10:17 | Progress Note ---
Assessment and Plan # KRYS on CKD: creatinine 2.9->2.5->2.4 this AM. Suspect pre-renal injury in setting of vomiting, potential tubular injury as well given RVR and potential for renal hypoperfusion. Mild proteinuria noted on UA, minimal hematuria. - follow up ordered vasculitic workup, although of low suspicion - continue PO hydration as tolerated - supportive measures per primary; cardiology notes reviewed - no indication for renal replacement therapy - no indication for biopsy at this time - avoid nephrotoxins - renally dose meds - daily renal labs - ok to discharge from renal perspective given downtrending creatinine, will arrange for outpatient follow up in CKD clinic # HTN: BP at goal # Anemia: microcytic, would check for iron deficiency # Adrenal Gland Inflammation: noted on ultrasound, unclear significance. Follow up in 6 weeks; checking renin/leandra # Diastolic Heart Failure # Atrial Fibrillation with RVR # Chronic Tobacco Use We'll continue to follow and make recommendation from renal standpoint. Subjective Date of service: 06/01/19 Principal diagnosis: Afib with rvr KRYS Interval history: No acute events noted overnight. Feels well this AM. No dyspnea. Good urine output noted. Objective - Exam Narrative Exam: General: No acute distress noted HEENT: Oral mucosa moist Neck: Supple Chest: Clear to auscultation anteriorly Heart: Regular rate and rhythm, normal S1-S2 Abdomen: Soft nontender Extremity: no edema Psych: No evidence of any agitation and aggression noted Neuro: no focal deficits Derm: No petechial rash - Vital Signs Vital signs: Vital Signs - 12hr 05/31/19 06/01/19 06/01/19 22:55 03:52 09:41 Temperature 98.9 F 97.5 F L 98.2 F Pulse Rate 59 L 52 L Respiratory 16 16 18 Rate Blood Pressure 146/93 142/114 131/82 O2 Sat by Pulse 95 93 Oximetry - Lab 05/31/19 07:08 06/01/19 08:19 Most recent lab results Calcium 8.8 mg/dL (8.4-10.2) 06/01/19 08:19 Medications & Allergies - Medications Allergies/Adverse Reactions: Allergies No Known Allergies Allergy (Verified 05/19/19 17:17) Home Medications: Home Medications Medication Instructions Recorded Confirmed Last Taken Type hydrALAZINE [Apresoline TAB] 50 mg PO QID #120 tablet 11/19/17 05/30/19 Unknown Rx ALBUTEROL Inhaler (OR & NICU) 2 puff IH QID PRN #8.5 gram 05/22/19 05/30/19 Unknown Rx [ProAir HFA Inhaler] Acetaminophen [Acetaminophen TAB] 650 mg PO Q4H PRN #10 tablet 05/22/19 05/30/19 Unknown Rx AtorvaSTATin [Lipitor] 20 mg PO QHS #30 tablet 05/22/19 05/30/19 Unknown Rx Furosemide [Lasix TAB] 40 mg PO BID #60 tablet 05/22/19 05/30/19 Unknown Rx Metoprolol [Lopressor TAB] 50 mg PO BID #60 tablet 05/22/19 05/30/19 Unknown Rx NIFEdipine XL [Procardia Xl] 90 mg PO QDAY #30 tablet 05/22/19 05/30/19 Unknown Rx Nicotine [Habitrol] 14 mg TD QDAY #7 patch 05/22/19 05/30/19 Unknown Rx Sodium Bicarbonate 650 mg PO TID #90 tablet 05/22/19 05/30/19 Unknown Rx cefUROXime [Ceftin] 2 tab PO BID 5 Days #10 tablet 05/22/19 05/30/19 Unknown Rx methylPREDNISolone [Medrol 4MG 1 dose PO DAILY #1 pack 05/22/19 05/30/19 Unknown Rx DOSEPAK (21 tabs)] Active Medications: Generic Name Dose Route Start Last Admin Trade Name Freq PRN Reason Stop Dose Admin Acetaminophen 650 mg 05/29/19 00:45 Tylenol PO Q6H PRN Pain MILD(1-3)/Fever >100.5/LUA Atorvastatin Calcium 20 mg 05/31/19 22:00 05/31/19 21:24 Lipitor PO 20 mg QHS ALBIN Administration Furosemide 40 mg 05/31/19 18:00 06/01/19 05:58 Lasix PO 40 mg 0600,1800 ALBIN Administration Hydralazine HCl 10 mg 05/30/19 18:00 05/30/19 18:00 Apresoline IV 10 mg Q6HR PRN Administration SBP > 160 Magnesium Hydroxide 30 ml 05/29/19 00:45 05/31/19 21:24 Milk Of Magnesia PO 30 ml Q4H PRN Administration Constipation Metoprolol Tartrate 50 mg 05/31/19 22:00 06/01/19 10:04 Metoprolol PO 50 mg BID ALBIN Administration Metoprolol Tartrate 5 mg 05/31/19 14:11 Metoprolol IV Q4HR PRN HR >130 Morphine Sulfate 2 mg 05/29/19 00:45 05/31/19 10:25 Morphine IV 2 mg Q4H PRN Administration Pain, Moderate (4-6) Nifedipine 90 mg 06/01/19 10:00 06/01/19 10:05 Procardia Xl PO 90 mg QDAY ALBIN Administration Ondansetron HCl 4 mg 05/29/19 00:45 05/30/19 13:38 Zofran IV 4 mg Q8H PRN Administration Nausea And Vomiting Rivaroxaban 15 mg 05/30/19 17:00 05/31/19 17:31 Xarelto PO 15 mg QDAY@1700 ALBIN Administration Sodium Chloride 10 ml 05/29/19 10:00 05/31/19 21:27 Sodium Chloride Flush Syringe 10 Ml IV 10 ml BID ALBIN Administration Sodium Chloride 10 ml 05/29/19 00:45 Sodium Chloride Flush Syringe 10 Ml IV PRN PRN LINE FLUSH Sodium Polystyrene Sulfonate 30 gm 06/01/19 09:16 Kionex PO 06/01/19 10:30 ONCE NR
--- NOTE | 2019-06-01 10:40 | Progress Note ---
Assessment and Plan Paroxysmal Afib previously treated with warfarin, INR of 1.1 on presentation; now on Xarelto for oral anticoagulation on metoprolol Left flank pain -chief complaint Essential hypertension Mild Dilated cardiomyopathy EF 40-45% by echo at [facility] 04/2019 [facility] 05/22/19 -no ischemia Chronic renal disease Elevated LFTs Hx of right upper lung mass Subjective Date of service: 06/01/19 Principal diagnosis: Afib with rvr KRYS Interval history: Rapid afib on telemetry this morning. Objective Vital Signs Temp Pulse Resp Resp BP Pulse Ox 06/01/19 10:00 133 H 20 06/01/19 09:41 98.2 F 18 131/82 06/01/19 03:52 97.5 F L 52 L 16 142/114 93 05/31/19 22:55 98.9 F 59 L 16 146/93 95 05/31/19 22:00 118 H 05/31/19 21:24 66 153/108 05/31/19 19:59 97.6 F 66 16 153/108 93 05/31/19 11:51 152/108 - Physical Examination General: No Apparent Distress HEENT: Positive: PERRL Neck: Positive: trachea midline Cardiac: Positive: irregularly irregular Lungs: Positive: Decreased Breath Sounds Neuro: Positive: Grossly Intact Extremities: Absent: edema - Labs and Meds Comprehensive Metabolic Panel 06/01/19 Range/Units 08:19 Sodium 138 (137-145) mmol/L Potassium 5.1 H D (3.6-5.0) mmol/L Chloride 103.1 (98-107) mmol/L Carbon Dioxide 20 L (22-30) mmol/L BUN 45 H (9-20) mg/dL Creatinine 2.4 H (0.8-1.5) mg/dL Glucose 100 (75-100) mg/dL Calcium 8.8 (8.4-10.2) mg/dL
--- NOTE | 2019-06-01 11:20 | Progress Note ---
Assessment and Plan Assessment and plan: Chronic kidney disease: Baseline creatinine has been around 3 as of May 2019 earlier in 2017 it was around 2.0. Nephrology following Acute diastolic heart failure. Echocardiogram November 2017 reveals EF of 60-65%. Cardiology following. Atrial fibrillation with RVR. Rate is controlled currently. Patient on Amiodarone, Metoprolol, Procardia XL. Cardiology following. Hypertension. Continue home antihypertensive medications Diabetes mellitus type II. Continue Accu-Cheks and sliding scale as. Osteoarthritis status post right hip surgery Chronic tobacco abuse. Patient will be counseled on tobacco cessation prior to discharge. Atrophic left kidney noted on the ultrasonogram in November 2017 History Interval history: Palpitations due to rapid afib Hospitalist Physical - Physical exam Narrative exam: Gen: Not in acute distress, lying in bed, HEENT: Normocephalic, atraumatic Neck: supple, no JVD Heart: S1 and S2 irreg, no murmurs, rubs or gallop Lungs: clear to auscultation bilaterally, no crackles Abd: soft, NT, non distended, normal BS Ext: No edema, no clubbing, no cyanosis Neuro:Awake,alert, oriented X 3, moves all ext - Constitutional Vitals: Temp Pulse Resp BP Pulse Ox 98.2 F 133 H 20 131/82 93 06/01/19 09:41 06/01/19 10:00 06/01/19 10:00 06/01/19 09:41 06/01/19 03:52 General appearance: Present: no acute distress Results - Labs CBC & Chem 7: 05/31/19 07:08 06/01/19 08:19 Labs: Laboratory Last Values WBC 11.4 K/mm3 (4.5-11.0) H 05/30/19 04:48 RBC 4.43 M/mm3 (3.65-5.03) 05/30/19 04:48 Hgb 10.5 gm/dl (11.8-15.2) L 05/31/19 07:08 Hct 33.3 % (35.5-45.6) L 05/31/19 07:08 MCV 74 fl (84-94) L 05/30/19 04:48 MCH 23 pg (28-32) L 05/30/19 04:48 MCHC 32 % (32-34) 05/30/19 04:48 RDW 17.8 % (13.2-15.2) H 05/30/19 04:48 Plt Count 164 K/mm3 (140-440) 05/31/19 07:08 Lymph % (Auto) 12.1 % (13.4-35.0) L 05/30/19 04:48 [place] % (Auto) 6.6 % (0.0-7.3) 05/30/19 04:48 Eos % (Auto) 0.2 % (0.0-4.3) 05/30/19 04:48 Baso % (Auto) 0.5 % (0.0-1.8) 05/30/19 04:48 Lymph # 1.4 K/mm3 (1.2-5.4) 05/30/19 04:48 [place] # 0.7 K/mm3 (0.0-0.8) 05/30/19 04:48 Eos # 0.0 K/mm3 (0.0-0.4) 05/30/19 04:48 Baso # 0.1 K/mm3 (0.0-0.1) 05/30/19 04:48 Seg Neutrophils % 80.6 % (40.0-70.0) H 05/30/19 04:48 Seg Neutrophils # 9.2 K/mm3 (1.8-7.7) H 05/30/19 04:48 PT 13.4 Sec. (12.2-14.9) 05/30/19 04:48 INR 1.01 (0.87-1.13) 05/30/19 04:48 APTT 69.1 Sec. (24.2-36.6) H* 05/30/19 04:48 Heparin Anti-Xa Level 1.71 U.I./ml (0.3-0.7) H 05/30/19 17:51 Sodium 138 mmol/L (137-145) 06/01/19 08:19 Potassium 5.1 mmol/L (3.6-5.0) H D 06/01/19 08:19 Chloride 103.1 mmol/L (98-107) 06/01/19 08:19 Carbon Dioxide 20 mmol/L (22-30) L 06/01/19 08:19 Anion Gap 20 mmol/L 06/01/19 08:19 BUN 45 mg/dL (9-20) H 06/01/19 08:19 Creatinine 2.4 mg/dL (0.8-1.5) H 06/01/19 08:19 Estimated GFR 34 ml/min 06/01/19 08:19 BUN/Creatinine Ratio 19 % 06/01/19 08:19 Glucose 100 mg/dL (75-100) 06/01/19 08:19 Uric Acid 8.4 mg/dL (3.5-7.6) H 05/29/19 15:39 Calcium 8.8 mg/dL (8.4-10.2) 06/01/19 08:19 Total Bilirubin 0.30 mg/dL (0.1-1.2) 05/28/19 20:55 AST 53 units/L (5-40) H 05/28/19 20:55 ALT 98 units/L (7-56) H 05/28/19 20:55 Alkaline Phosphatase 176 units/L (35-129) H 05/28/19 20:55 Total Protein 6.3 g/dL (6.3-8.2) 05/28/19 20:55 Albumin 3.4 g/dL (3.9-5) L 05/28/19 20:55 Albumin/Globulin Ratio 1.2 % 05/28/19 20:55 Urine Color Yellow (Yellow) 05/28/19 Unknown Urine Turbidity Slightly-cloudy (Clear) 05/28/19 Unknown Urine pH 5.0 (5.0-7.0) 05/28/19 Unknown Ur Specific [place] 1.014 (1.003-1.030) 05/28/19 Unknown Urine Protein 100 mg/dl mg/dL (Negative) 05/28/19 Unknown Urine Glucose (UA) Neg mg/dL (Negative) 05/28/19 Unknown Urine Ketones Neg mg/dL (Negative) 05/28/19 Unknown Urine Blood Neg (Negative) 05/28/19 Unknown Urine Nitrite Neg (Negative) 05/28/19 Unknown Urine Bilirubin Neg (Negative) 05/28/19 Unknown Urine Urobilinogen < 2.0 mg/dL (<2.0) 05/28/19 Unknown Ur Leukocyte Esterase Neg (Negative) 05/28/19 Unknown Urine WBC (Auto) 2.0 /HPF (0.0-6.0) 05/28/19 Unknown Urine RBC (Auto) 7.0 /HPF (0.0-6.0) 05/28/19 Unknown U Epithel Cells (Auto) < 1.0 /HPF (0-13.0) 05/28/19 Unknown Urine Bacteria (Auto) 1+ /HPF (Negative) 05/28/19 Unknown Urine Mucus Few /HPF 05/28/19 Unknown Hepatitis A IgM Ab Non-reactive (NonReactive) 05/30/19 17:51 Hep Bs Antigen Non-reactive (Negative) 05/30/19 17:51 Hep B Core IgM Ab Non-reactive (NonReactive) 05/30/19 17:51 Hepatitis C Antibody Non-reactive (NonReactive) 05/30/19 17:51 Active Medications - Current Medications Current Medications: Generic Name Dose Route Start Last Admin Trade Name Freq PRN Reason Stop Dose Admin Acetaminophen 650 mg 05/29/19 00:45 Tylenol PO Q6H PRN Pain MILD(1-3)/Fever >100.5/LUA Atorvastatin Calcium 20 mg 05/31/19 22:00 05/31/19 21:24 Lipitor PO 20 mg QHS ALBIN Administration Furosemide 40 mg 05/31/19 18:00 06/01/19 05:58 Lasix PO 40 mg 0600,1800 ALBIN Administration Hydralazine HCl 10 mg 05/30/19 18:00 05/30/19 18:00 Apresoline IV 10 mg Q6HR PRN Administration SBP > 160 Magnesium Hydroxide 30 ml 05/29/19 00:45 05/31/19 21:24 Milk Of Magnesia PO 30 ml Q4H PRN Administration Constipation Metoprolol Tartrate 50 mg 05/31/19 22:00 06/01/19 10:04 Metoprolol PO 50 mg BID ALBIN Administration Metoprolol Tartrate 5 mg 05/31/19 14:11 Metoprolol IV Q4HR PRN HR >130 Morphine Sulfate 2 mg 05/29/19 00:45 05/31/19 10:25 Morphine IV 2 mg Q4H PRN Administration Pain, Moderate (4-6) Nifedipine 90 mg 06/01/19 10:00 06/01/19 10:05 Procardia Xl PO 90 mg QDAY ALBIN Administration Ondansetron HCl 4 mg 05/29/19 00:45 05/30/19 13:38 Zofran IV 4 mg Q8H PRN Administration Nausea And Vomiting Rivaroxaban 15 mg 05/30/19 17:00 05/31/19 17:31 Xarelto PO 15 mg QDAY@1700 ALBIN Administration Sodium Chloride 10 ml 05/29/19 10:00 05/31/19 21:27 Sodium Chloride Flush Syringe 10 Ml IV 10 ml BID ALBIN Administration Sodium Chloride 10 ml 05/29/19 00:45 Sodium Chloride Flush Syringe 10 Ml IV PRN PRN LINE FLUSH Nutrition/Malnutrition Assess - Dietary Evaluation Nutrition/Malnutrition Findings: Nutrition Notes Start: 05/31/19 10:31 Freq: Status: Active Protocol: Document 05/31/19 10:31 LP (Rec: 05/31/19 10:34 LP [email or web address]) Nutrition Notes Need for Assessment generated from: MD Order Initial or Follow up Brief Note Current Diagnosis CKD(stage I-IV),Diabetes, Hypertension,Heart Failure Other Pertinent Diagnosis Abdominal pain Current Diet Cardiac Subjective/Other Information Consult for diet education. Pt denies need for diet education. Pt states he eats mostly fruits and vegetables and is on 1 liter fluid restriction. Pt states not eating fast food and not adding salt to foods. Nutrition Intervention Teaching Recipient Patient Teaching Methods Handout Education Handouts Provided HTN and CHF education RD phone number provided Yes Patient aware of follow up options Yes Revisit per MD consult or patient Sign Off request:
[2019-06-01] MEDS: MORPHINE 2 MG/1 ML INJ IV PRN (11:36)
[2019-06-01] MEDS ORDERED: AMIODARONE 150 MG/3 ML INJ IV ONE (14:00)
[2019-06-01] MEDS ORDERED: AMIODARONE 300 MG in DEXTROSE 5% IN WATER 100 ML IV ONE (15:00)
[2019-06-01] MEDS: RIVAROXABAN 15 MG TAB PO SCH (18:52)
[2019-06-01] MEDS: AMIODARONE 200 MG TAB PO SCH (21:39)
[2019-06-01] MEDS: METOPROLOL TARTRATE 100 MG TAB PO SCH (21:39)
[2019-06-02] MEDS: MORPHINE 2 MG/1 ML INJ IV PRN (02:25)
[2019-06-02 05:52] LABS: Hematocrit 32.3 % (35.5-45.6); Hemoglobin 10.6 gm/dl (11.8-15.2)
[2019-06-02] MEDS: FUROSEMIDE 40 MG TAB PO SCH (06:13)
[2019-06-02 06:17] LABS: Calcium 8.4 mg/dL (8.4-10.2)
[2019-06-02] MEDS: AMIODARONE 200 MG TAB PO SCH (09:19)
[2019-06-02] MEDS: NIFEdipine XL 90 MG TAB PO SCH (09:19)
[2019-06-02] MEDS: METOPROLOL TARTRATE 100 MG TAB PO SCH (09:19)
--- NOTE | 2019-06-02 09:58 | Progress Note ---
<LUIS ALFREDO SHAIKH - Last Filed: 06/02/19 13:00> Assessment and Plan Paroxysmal Afib previously treated with warfarin, INR of 1.1 on presentation; now on Xarelto for oral anticoagulation on metoprolol and amiodarone Left flank pain -chief complaint Essential hypertension Mild Dilated cardiomyopathy EF 40-45% by echo at [facility] 04/2019 MPI 05/22/19 -no ischemia Chronic renal disease Elevated LFTs Hx of right upper lung mass Continue rate controlling agents and oral anticoagulation for atrial fibrillation. We will add diltiazem XT 120md daily for optimal rate control. Subjective Date of service: 06/02/19 Principal diagnosis: Afib with rvr KRYS Interval history: Patient complains of abdominal pain. Afib with rate ranging in the 120s this morning. He denies palpitations and unusual shortness of breath. Objective Vital Signs Temp Pulse Pulse Pulse Pulse Resp Resp 06/02/19 08:02 115 H 06/02/19 08:01 98.0 F 83 20 06/02/19 03:54 98.3 F 111 H 16 06/02/19 02:25 20 06/01/19 23:42 98.9 F 69 16 06/01/19 22:00 111 H 109 H 109 H 109 H 20 06/01/19 21:39 87 06/01/19 19:24 97.7 F 87 20 06/01/19 10:00 133 H 133 H 133 H 133 H 20 BP Pulse Ox 06/02/19 08:02 06/02/19 08:01 132/89 95 06/02/19 03:54 127/86 93 06/02/19 02:25 06/01/19 23:42 133/91 93 06/01/19 22:00 06/01/19 21:39 113/76 06/01/19 19:24 113/76 94 06/01/19 10:00 - Physical Examination General: No Apparent Distress HEENT: Positive: PERRL Neck: Positive: trachea midline Cardiac: Positive: irregularly irregular Lungs: Positive: Decreased Breath Sounds Neuro: Positive: Grossly Intact Abdomen: Positive: Soft, Active Bowel Sounds Extremities: Absent: edema - Labs and Meds CBC 06/02/19 Range/Units 04:51 Hgb 10.6 L (11.8-15.2) gm/dl Hct 32.3 L (35.5-45.6) % Plt Count 146 (140-440) K/mm3 Comprehensive Metabolic Panel 06/02/19 Range/Units 04:51 Sodium 141 (137-145) mmol/L Potassium 4.5 (3.6-5.0) mmol/L Chloride 101.6 (98-107) mmol/L Carbon Dioxide 20 L (22-30) mmol/L BUN 49 H (9-20) mg/dL Creatinine 2.6 H (0.8-1.5) mg/dL Glucose 97 (75-100) mg/dL Calcium 8.4 (8.4-10.2) mg/dL <LONDON HICKS - Last Filed: 06/08/19 23:34> Assessment and Plan I have seen and evaluated the patient and agree with the assessment and plan.
--- NOTE | 2019-06-02 11:49 | Progress Note ---
Assessment and Plan # KRYS on CKD: creatinine 2.9->2.5->2.4->2.5->2.6 this AM; appears to be at or near baseline. Suspect pre-renal injury in setting of vomiting, potential tubular injury as well given RVR and potential for renal hypoperfusion. Mild proteinuria noted on UA, minimal hematuria. - follow up ordered vasculitic workup, although of low suspicion - continue PO hydration as tolerated - supportive measures per primary; cardiology notes reviewed - no indication for renal replacement therapy - no indication for biopsy at this time - avoid nephrotoxins - renally dose meds - daily renal labs - ok to discharge from renal perspective given stable creatinine, will arrange for close outpatient follow up in CKD clinic # HTN: BP at goal # Anemia: microcytic, would check for iron deficiency, no need for ESAs # Adrenal Gland Inflammation: noted on ultrasound, unclear significance. Follow up in 6 weeks; checking renin/leandra, will follow up outpatient # Diastolic Heart Failure # Atrial Fibrillation with RVR # Chronic Tobacco Use We'll continue to follow and make recommendation from renal standpoint. Subjective Date of service: 06/02/19 Principal diagnosis: Afib with rvr KYRS Interval history: No acute events noted overnight. Feels well this AM. No dyspnea. Good urine output noted. Wants to go home. Objective - Exam Narrative Exam: General: No acute distress noted HEENT: Oral mucosa moist Neck: Supple Chest: Clear to auscultation anteriorly Heart: Regular rate and rhythm, normal S1-S2 Abdomen: Soft nontender Extremity: no edema Psych: No evidence of any agitation and aggression noted Neuro: no focal deficits Derm: No petechial rash - Vital Signs Vital signs: Vital Signs - 12hr 06/02/19 06/02/19 06/02/19 02:25 03:54 08:01 Temperature 98.3 F 98.0 F Pulse Rate 111 H 83 Respiratory 20 16 20 Rate Blood Pressure 127/86 132/89 O2 Sat by Pulse 93 95 Oximetry 06/02/19 08:02 Temperature Pulse Rate 115 H Respiratory Rate Blood Pressure O2 Sat by Pulse Oximetry - Lab 06/02/19 04:51 06/02/19 04:51 Most recent lab results Calcium 8.4 mg/dL (8.4-10.2) 06/02/19 04:51 Medications & Allergies - Medications Allergies/Adverse Reactions: Allergies No Known Allergies Allergy (Verified 05/19/19 17:17) Home Medications: Home Medications Medication Instructions Recorded Confirmed Last Taken Type hydrALAZINE [Apresoline TAB] 50 mg PO QID #120 tablet 11/19/17 05/30/19 Unknown Rx ALBUTEROL Inhaler (OR & NICU) 2 puff IH QID PRN #8.5 gram 05/22/19 05/30/19 Unknown Rx [ProAir HFA Inhaler] Acetaminophen [Acetaminophen TAB] 650 mg PO Q4H PRN #10 tablet 05/22/19 05/30/19 Unknown Rx AtorvaSTATin [Lipitor] 20 mg PO QHS #30 tablet 05/22/19 05/30/19 Unknown Rx Furosemide [Lasix TAB] 40 mg PO BID #60 tablet 05/22/19 05/30/19 Unknown Rx Metoprolol [Lopressor TAB] 50 mg PO BID #60 tablet 05/22/19 05/30/19 Unknown Rx NIFEdipine XL [Procardia Xl] 90 mg PO QDAY #30 tablet 05/22/19 05/30/19 Unknown Rx Nicotine [Habitrol] 14 mg TD QDAY #7 patch 05/22/19 05/30/19 Unknown Rx Sodium Bicarbonate 650 mg PO TID #90 tablet 05/22/19 05/30/19 Unknown Rx cefUROXime [Ceftin] 2 tab PO BID 5 Days #10 tablet 05/22/19 05/30/19 Unknown Rx methylPREDNISolone [Medrol 4MG 1 dose PO DAILY #1 pack 05/22/19 05/30/19 Unknown Rx DOSEPAK (21 tabs)] Active Medications: Generic Name Dose Route Start Last Admin Trade Name Freq PRN Reason Stop Dose Admin Acetaminophen 650 mg 05/29/19 00:45 Tylenol PO Q6H PRN Pain MILD(1-3)/Fever >100.5/LUA Amiodarone HCl 200 mg 06/01/19 22:00 06/02/19 09:19 Cordarone PO 200 mg BID ALBIN Administration Atorvastatin Calcium 20 mg 05/31/19 22:00 06/01/19 21:39 Lipitor PO 20 mg QHS ALBIN Administration Furosemide 40 mg 05/31/19 18:00 06/02/19 06:13 Lasix PO 40 mg 0600,1800 ALBIN Administration Hydralazine HCl 10 mg 05/30/19 18:00 05/30/19 18:00 Apresoline IV 10 mg Q6HR PRN Administration SBP > 160 Magnesium Hydroxide 30 ml 05/29/19 00:45 05/31/19 21:24 Milk Of Magnesia PO 30 ml Q4H PRN Administration Constipation Metoprolol Tartrate 5 mg 05/31/19 14:11 Metoprolol IV Q4HR PRN HR >130 Metoprolol Tartrate 100 mg 06/01/19 22:00 06/02/19 09:19 Metoprolol PO 100 mg BID ALBIN Administration Morphine Sulfate 2 mg 05/29/19 00:45 06/02/19 02:25 Morphine IV 2 mg Q4H PRN Administration Pain, Moderate (4-6) Nifedipine 90 mg 06/01/19 10:00 06/02/19 09:19 Procardia Xl PO 90 mg QDAY ALBIN Administration Ondansetron HCl 4 mg 05/29/19 00:45 05/30/19 13:38 Zofran IV 4 mg Q8H PRN Administration Nausea And Vomiting Rivaroxaban 15 mg 05/30/19 17:00 06/01/19 18:52 Xarelto PO 15 mg QDAY@1700 ALBIN Administration Sodium Chloride 10 ml 05/29/19 10:00 06/02/19 09:35 Sodium Chloride Flush Syringe 10 Ml IV Not Given BID ALBIN Sodium Chloride 10 ml 05/29/19 00:45 Sodium Chloride Flush Syringe 10 Ml IV PRN PRN LINE FLUSH
[2019-06-02 14:59] LABS: ANA Screen, IFA Negative (Negative)
--- NOTE | 2019-06-02 15:27 | Discharge Summary ---
Providers - Providers Date of Admission: 05/29/19 00:10 Date of discharge: 06/02/19 Attending physician: LONDON COLLIER 05/29/19 00:45 Consult to Dietitian/Nutrition [CONS] Routine Physician Instructions: Reason For Exam: Reason for Consult: Diet education 05/29/19 00:47 Consult to Physician [CONS] Routine Comment: Consulting Provider: LONDON HICKS Physician Instructions: Reason For Exam: AFIB WITH RVR 05/29/19 07:02 Consult to Physician [CONS] Routine Comment: Consulting Provider: JUAN RANDALL Physician Instructions: Reason For Exam: renal failure Primary care physician: SHOP FOREMAN Hospitalization Condition: Stable Hospital course: Patient is a 53-year-old male with known history of CKD, CHF, A. fib, hypertension, diabetes mellitus. He presented to the emergency room complaining of left flank pain which has been ongoing since previous night. He denies any fever, no chills, no nausea vomiting, no hematuria or dysuria. He denies any history of kidney stones. Upon arrival in the emergency room evaluation shows that patient was in atrial fibrillation with RVR, was also found to be slightly hyperkalemic. Patient was placed on IV Cardizem drip and admitted. Chronic kidney disease: Baseline creatinine has been around 3 as of May 2019 earlier in 2017 it was around 2.0. Nephrology following Acute diastolic heart failure. Echocardiogram November 2017 reveals EF of 60-65%. Cardiology following. Atrial fibrillation with RVR. Rate is controlled currently. Patient on Amiodarone, Metoprolol, Procardia XL. Cardiology following. Hypertension. Continue home antihypertensive medications Diabetes mellitus type II. Continue Accu-Cheks and sliding scale as. Osteoarthritis status post right hip surgery Chronic tobacco abuse. Patient will be counseled on tobacco cessation prior to discharge. Atrophic left kidney noted on the ultrasonogram in November 2017 Total time spent on discharge, 35 mins Disposition: - TO HOME OR SELFCARE - Discharge Diagnoses (1) Atrial fibrillation with RVR Status: Acute (2) Chronic kidney disease Status: Acute (3) Hyperkalemia Status: Acute (4) HLD (hyperlipidemia) Status: Chronic Qualifiers: Hyperlipidemia type: mixed hyperlipidemia Qualified Code(s): E78.2 - Mixed hyperlipidemia (5) HTN (hypertension) Status: Chronic Qualifiers: Hypertension type: essential hypertension Qualified Code(s): I10 - Essential (primary) hypertension (6) Acute diastolic (congestive) heart failure Status: Acute Core Measure Documentation - Palliative Care Palliative Care/ Comfort Measures: Not Applicable - Core Measures Any of the following diagnoses?: heart failure - Heart Failure Discharge Requirements RICHELLE/ARB for LVSD if EF <40%: Not Applicable Beta kiana at discharge: Yes Exam - Constitutional Vitals: Temp Pulse Resp BP Pulse Ox 98.0 F 103 H 18 140/100 95 06/02/19 11:49 06/02/19 11:49 06/02/19 11:49 06/02/19 11:49 06/02/19 11:49 Plan Activity: no restrictions Diet: low fat, low cholesterol, low salt, renal Plan of Treatment: 1.Follow with PCP or [facility] in 1 week 2.Follow up with Dr. Monae Ruffin, Nephrology in 1 week. 3.Follow up with Dr. Mejia, cardiology in 1 week Follow up with: SRINIVAS MEJIA MD [Staff Physician] - 7 Days PRIMARY CAREMD [Primary Care Provider] - 3-5 Days MONAE RUFFIN MD [Staff Physician] - 7 Days Prescriptions: [id number] CD [Cardizem CD] 120 mg PO DAILY #30 cap Amiodarone [Cordarone 200 MG TAB] 200 mg PO BID #60 tablet Furosemide [Lasix TAB] 40 mg PO BID #60 tablet AtorvaSTATin [Lipitor] 20 mg PO QHS #30 tablet Metoprolol [Lopressor TAB] 100 mg PO BID #60 tablet Rivaroxaban [Xarelto] 15 mg PO QDAY@1700 #30 tablet
[2019-06-02 17:04] VITALS: BP 130/76
[2019-06-03 21:21] LABS: Myeloperoxidase Antibody <1.0 AI (<1.0)
[2019-06-06 19:38] LABS: Aldo/Plasma Renin Act Ratio 2.5 Ratio (0.9-28.9)
== END 2019-06-02 17:44 | disposition home or self-care (01) | DRG 682 ==
LOC: ED 17:40 → IMCU 05-29 00:10 → 4A 05-30 13:38
PROVIDERS: ADMIT Internal Medicine Geriatric Medicine; ATTEND Internal Medicine
DX: N17.9 Acute kidney failure, unspecified (principal); I50.31 Acute diastolic (congestive) heart failure; I13.0 Hypertensive heart and chronic kidney disease with heart failure and stage 1 through stage 4 chronic kidney disease, or unspecified chronic kidney disease; I48.20 Chronic atrial fibrillation, unspecified; I42.0 Dilated cardiomyopathy; I48.0 Paroxysmal atrial fibrillation; E87.5 Hyperkalemia; E27.8 Other specified disorders of adrenal gland; F17.210 Nicotine dependence, cigarettes, uncomplicated; D50.9 Iron deficiency anemia, unspecified; Z91.19 Patient's noncompliance with other medical treatment and regimen; M16.11 Unilateral primary osteoarthritis, right hip; E11.22 Type 2 diabetes mellitus with diabetic chronic kidney disease; R94.5 Abnormal results of liver function studies; N18.3 Chronic kidney disease, stage 3 (moderate); Z83.3 Family history of diabetes mellitus; Z79.899 Other long term (current) drug therapy; Z79.01 Long term (current) use of anticoagulants; Z71.6 Tobacco abuse counseling; Z82.49 Family history of ischemic heart disease and other diseases of the circulatory system; Z84.89 Family history of other specified conditions
CPT/HCPCS: 36415; 71045; 74176; 76770; 80048; 80053; 80074; 81001; 82088; 84132; 84550; 85014; 85018; 85025; 85049; 85520; 85610; 85730; 86021; 86038; 93005; 93010; G0378; A9270-GY; J0282; J1644; J1815; J2270; J2405